=== PATIENT | female | born 1985 | race African-American/Black ===

== ENCOUNTER 2021-02-23 19:24 | Emergency (ER) | payer OTHER, SELFPAY ==
[2021-02-23 20:11] VITALS: BP 119/76; PULSE 68; RESP 18; TEMP 36.9; O2SAT 100
--- NOTE | 2021-02-23 20:59 | ED_ITS ---
HPI - Extremity Problem General Chief complaint: Extremity Problem,Nontraumatic Stated complaint: right leg numbness x few weeks Time Seen by Provider: 02/23/21 20:42 Source: patient Mode of arrival: ambulatory Limitations: no limitations History of Present Illness HPI Narrative: Patient is a 36-year-old female complaining of right leg numbness, lateral side, started 2 weeks ago. Patient denies any leg pain. Pat ient denies any cold extremity. Patient denies any injury to the area. Patient able to ambulate without difficulty. Patient also wants a test. Patient denies any back pain, incontinence, fever or chills. Patient denies any speech or visual disturbance, focal weakness or unsteady gait. Related Data Allergies Allergy/AdvReac Type Severity Reaction Status Date / Time No Known Allergies Allergy Unverified 10/10/17 14:13 Review of Systems Review of Systems: All systems reviewed & are unremarkable except as noted in HPI and below Constitutional: Constitutional: Reports as per HPI PMFSH Comments Past medical history: None Family history: None Social history: Non-smoker no EtOH or drug use. Exam Const: General: no acute distress and alert Orientation/consciousness: p atient oriented x3 HENMT: Head: normal to inspection Eyes: Conjunctivae: conjunctivae normal Neck: Neck: normal visual inspection Resp: Effort & Inspection: normal respiratory effort Back/Spine/Pelvis: Back: no CVA tenderness Other: Negative for vertebral tenderness or pain on palpation of the back Skin: General skin exam: normal color Rashes: no rashes Neuro: General: patient oriented x3, moves all extremities, no meningeal signs, no focal motor deficits and CN's II-XI intact bilaterally Speech: normal speech Gait exam (Neuro): Normal gait present Extrem: General: normal to inspection, no clubbing, cyanosis or edema and no pedal edema Other: No deformity, swelling or redness. Full range of motion. Negative for calf pain or swelling. Neurovascular is intact. Course Vital Signs Vital signs: Vital Signs Temperature 36.9 C 02/23/21 20:11 Pulse Rate 68 02/23/21 20:11 Respiratory Rate 18 02/23/21 20:11 Blood Pressure 119/76 02/23/21 20:11 Pulse Oximetry 100 02/23/21 20:11 Temperature 36.9 C 02/23/21 20:11 Pulse Rate 68 02/23/21 20:11 Respiratory Rate 18 02/23/21 20:11 Blood Pressure 119/76 02/23/21 20:11 Pulse Oximetry 100 02/23/21 20:11 Discharge Plan Discharge Clinical Impression: Paresthesia of right leg Patient Disposition: Home, Self-Care Condition: Stable Instructions: Paresthesia (ED) Follow-up/Referrals: PHYSICIAN,CATCH BASIN CLEANER [Primary Care Provider] - Keshav Rosario MD [Physician] - 02/24/21
--- NOTE | 2021-02-23 22:28 | PC.NURSE ---
patient requested discharge instruction informed waiting for md to print forms states That's OK walked out without instructions
== END 2021-02-23 22:30 | disposition home or self-care (01) ==
PROVIDERS: Emergency Provider Emergency Medicine
DX: R20.2 Paresthesia of skin (principal)
CPT/HCPCS: 81025; 99283

== ENCOUNTER 2022-03-25 17:19 | Emergency (ER) | payer OTHER, SELFPAY ==
[2022-03-25 17:22] VITALS: BP 95/74; PULSE 80; RESP 18; TEMP 36.3; O2SAT 100
--- NOTE | 2022-03-25 17:38 | ED.DENTAL ---
HPI - Dental/Oral General Chief complaint: Dental/Oral Stated complaint: dental pain left sided Time Seen by Provider: 03/25/22 17:28 History of Present Illness HPI Narrative: Patient is a 37-year-old female here for evaluation of left upper dental pain over the past 4 days. Patient has a cracked tooth in that area. She has a dentist but was told she needs to see a maxillofacial surgeon to have her wisdom teeth removed, but patient states that she has been unable to get in to see them due to insurance issues. She has attempted aspirin, ibuprofen, Tylenol without relief of her symptoms. She denies any facial swelling, trismus or fevers. Related Data Allergies Allergy/AdvReac Type Severity Reaction Status Date / Time No Known Allergies Allergy Unverified 03/25/22 17:20 Review of Systems Review of Systems: Gen.: Denies fevers or chills Eyes: Denies eye pain or visual change ENT: Reports dental pain Respiratory: Denies shortness of breath or cough CV: Denies chest pain or palpitations GI: Denies abdominal pain nausea, emesis or diarrhea denies burning, urgency, frequency or hematuria Musculoskeletal: Denies back pain or muscle pain Neuro: Denies numbness, tingling, weakness or focal weakness Skin: Denies rash Except as documented, all other systems reviewed and negative Exam Narrative: Gen: Alert, oriented, no acute distress Eyes: EOMI, no icterus ENT: No facial swelling noted. No trismus. Patient has a cracked tooth on the upper left side that is tender to palpation. No palpable periapical abscess. Pulm: Respirations even and unlabored, symmetric thorax expansion, no audible stridor or visible cyanosis CV: Regular rate per telemetry GI: No distension, no voluntary/involuntary guarding Neuro: AOx4, moves all extremities without apparent difficulty or weakness, follows commands Skin: No jaundice, no visible bruising, rashes, lesions or wounds on exposed skin Psych: Normal mood/affect, insight/judgement good, adequate fund of knowledge, recent/remote memory intact Course Vital Signs Vital signs: Vital Signs Temperature 97.4 F L 03/25/22 17:22 Pulse Rate 80 03/25/22 17:22 Respiratory Rate 18 03/25/22 17:22 Blood Pressure 95/74 L 03/25/22 17:22 Pulse Oximetry 100 03/25/22 17:22 Oxygen Delivery Room Air 03/25/22 17:22 Temperature 97.4 F L 03/25/22 17:22 Pulse Rate 80 03/25/22 17:22 Respiratory Rate 18 03/25/22 17:22 Blood Pressure 95/74 L 03/25/22 17:22 Pulse Oximetry 100 03/25/22 17:22 Oxygen Delivery Room Air 03/25/22 17:22 MDM - Dental/Oral MDM Narrative Medical decision making narrative: Patient presents for dental pain due to suspected dental luz. Patient not immunosuppressed, afebrile and well appearing with patent airway, have low suspicion for deep space infection or any concern for airway compromise. Based on history, physical, and work up. No evidence of tooth fracture, avulsion, or bleeding socket. No evidence of RPA, ELIGIBILITY EXAMINER, Ran?s angina, periapical abscess. Instructed patient to continue to treat pain with ibuprofen/acetaminophen until they see a dentist. Will start on antibiotics. Patient discharged home and will follow up with dentist. Discussed return precautions for odontogenic infections and other dental pain emergencies. Discharge Plan Discharge Clinical Impression: Dental caries Patient Disposition: Home, Self-Care Condition: Stable Instructions: Antibiotic Form, Toothache (ED) Additional Instructions: You will need to see an oral surgeon for further evaluation of your dental pain. In the meantime, take the antibiotics as directed. You may use the extra strength ibuprofen and Orajel as needed for pain. Return to the ED if you cannot swallow, open your jaw or have other concerning symptoms. Prescriptions: New Orajel 3X Mouth Sores 20-0.1-0.15 % gel 1 ea mucous membrane Q6-12H PRN (Reason: toothache) Qty: 5.1 0RF ibuprofen 600 mg tabl
== END 2022-03-25 18:02 | disposition home or self-care (01) ==
LOC: ANHED 17:45
PROVIDERS: Emergency Provider Physician Assistant
DX: K02.9 Dental caries, unspecified (principal)
CPT/HCPCS: 99283

== ENCOUNTER 2022-11-14 22:59 | Emergency (ER) | payer OTHER, SELFPAY ==
--- NOTE | ~2022-11-14 | US_ITS ---
EXAMINATION: US OB <=14 wk fetus w TV DATE: 11/15/2022 01:24 INDICATION: Low abdominal pain. Bleeding. TECHNIQUE: Multiple transabdominal sonographic images of the pelvis were obtained. COMPARISON: None. FINDINGS: The uterus measures 9.3 x 4.9 x 5.1 cm. There is no free fluid in the pelvis. The endometrial complex measures 13 mm in thickness. There is a cystic mass with mean diameter of 1.2 cm and internal echoes in the vagina that was expelled during the exam. The right ovary measures 3.7 x 1.3 x 1.5 cm. The le ft ovary measures 2.8 x 2.6 x 2.8 cm. There is normal vascular flow in the ovaries. IMPRESSION: 1. Cystic mass in the vagina that was expelled during the exam, which is indeterminate for a gestatio nal sac. Correlate with exam for expelled parts. Lack of a visible normal intrauterine gestatio nal sac may be seen with early , ectopic , and spontaneous . Correlate with serial beta-hCGs if the exam is negative for expelled parts. Reviewed, dictated and finalized at location E. IMPRESSION: 1. Cystic mass in the vagina that was expelled during the exam, which is indete rminate for a gestational sac. Correlate with exam for expelled parts. La ck of a visible normal intrauterine gestational sac may be seen with early preg luh, ectopic , and spontaneous . Correlate with serial beta- hCGs if the exam is negative for expelled parts.
[2022-11-14 23:07] VITALS: BP 121/76; PULSE 71; RESP 17; TEMP 36.4; O2SAT 100
[2022-11-15 00:11] LABS: Basophils Absolute Auto 0.1 K/mm3 (0.0-0.1); Basophils Percent Auto 0.6 % (0.2-1.2); Eosinophils Absolute Auto 0.2 K/mm3 (0-0.3); Eosinophils Percent Auto 1.9 % (0-4.4); Hematocrit 35.9 % (37.0-47.0); Hemoglobin 10.7 g/dL (12.0-15.0); Immature Granulocyte Absolute 0.02 K/mm3 (0.00-0.031); Immature Granulocyte Percent A 0.2 % (0-0.5); Lymphocytes Absolute Auto 3.25 K/mm3 (0.9-3.2); Mean Corpuscular HGB Conc 29.8 g/dl (32-36); Mean Corpuscular Hemoglobin 23.5 pg (26-34); Mean Corpuscular Volume 78.7 fl (80-100); Mean Platelet Volume 9.8 fl (7.4-10.4); Monocytes Absolute Auto 0.7 K/mm3 (0.1-0.6); Monocytes Percent Auto 7.7 % (2.6-8.5); Neutrophils Absolute Auto 4.9 K/mm3 (1.3-6.7); Neutrophils Percent Auto 53.6 % (45.5-73.1); Platelet Count Result 340 k/mm3 (150-375); Red Blood Count 4.56 M/mm3 (4.2-5.4)
--- NOTE | 2022-11-15 00:13 | ED.ABDPAIN ---
HPI - Abdominal Pain General Chief Complaint: Abdominal Pain Stated Complaint: abd pain, vaginal bleeding Time Seen by Provider: 11/15/22 00:11 Source: patient Mode of arrival: ambulatory Limitations: no limitations History of Present Illness HPI narrative: Patient is a 37 y/o female who presents to the ED with c/o vaginal bleeding. Patient reports she developed vaginal bleeding today. It began as spotting, but has since become heavier with clots. She states her last normal menstrual cycle was 09/29/2022. She did not think she was . Bedside urine positive in the ED. This makes patient G5, P2. She has had 1 miscarriage previously and had an elective at the beginning of this year. Patient also reports having lower abdominal cramping, slightly worse on the left side. She denies any nausea, vomiting, diarrhea, constipation, urinary complaints, fevers. Related Data Allergies Allergy/AdvReac Type Severity Reaction Status Date / Time No Known Allergies Allergy Unverified 03/25/22 17:20 Review of Systems Review of Systems: CONSTITUTIONAL: Denies fever, chills, or sweats. CARDIOVASCULAR: Denies chest pain. RESPIRATORY: Denies dyspnea. GASTROINTESTINAL: See HPI. GENITOURINARY: See HPI. SKIN: Denies rash or itching. MUSCULOSKELETAL: Denies back pain, joint pain, or myalgia. NEUROLOGIC: Denies headache, numbness, or weakness. All systems reviewed & are unremarkable except as noted in HPI and below Exam Narrative: GENERAL: Mildly uncomfortable appearing, thin, non-toxic, in no acute distress. HEAD: Normocephalic, atraumatic. NECK: Supple. No adenopathy, no masses. RESPIRATORY: Airway patent, respirations nonlabored. Clear to auscultation bilaterally, no rales, rhonchi, wheezing. CARDIOVASCULAR: Regular rate and rhythm without murmurs, rubs, or gallops. Peripheral pulses 2+ and equal bilaterally. ABDOMINAL: Soft, diffuse lower abdominal tenderness, worst in suprapubic region/LLQ, nondistended, no hepatosplenomegaly. Normoactive BS. PELVIC: Normal external genitalia. No abnormal discharge. Several large clots seen in vaginal vault. tissue coming from cervical os which appears open. Removal of tissue performed with ring forceps. No evidence for hemorrhage or pooling of fluid after removal. Mild CMT. MUSCULOSKELETAL: Moves all extremities. Strength/ROM intact without gross deformities. SKIN: Warm, dry, normal color. No rashes. NEURO: A&O X3. Speech clear. Cranial nerves II-XII grossly intact. Steady gait. No ataxic movements. PSYCHIATRIC: Appropriate mood and affect. Normal interaction. Course Vital Signs Vital signs: Vital Signs Temperature 97.5 F L 11/14/22 23:07 Pulse Rate 71 11/14/22 23:07 Respiratory Rate 17 11/14/22 23:07 Blood Pressure 121/76 11/14/22 23:07 Pulse Oximetry 100 11/14/22 23:07 Oxygen Delivery Room Air 11/14/22 23:07 Temperature 97.8 F 11/15/22 01:07 Pulse Rate 77 11/15/22 02:25 Respiratory Rate 15 11/15/22 02:25 Blood Pressure 117/94 H 11/15/22 02:25 Pulse Oximetry 98 11/15/22 02:25 Oxygen Delivery Room Air 11/14/22 23:07 MDM - Abdominal Pain MDM Narrative Medical decision making narrative: Patient presented to ED with vaginal bleeding, over 1 month late on menstrual cycle. Lower abdominal cramping. Bedside urine test positive in the ED. Patient G5, P2. Beta quant around 3500. CBC without leukocytosis. Hemoglobin 10.7. No records to compare to. Ultrasound concerning for miscarriage with cystic mass expelled during exam. No intrauterine gestational sac seen. Pelvic exam revealed large clots and a small dime size sac which were removed with ring forceps. Placed in specimen cup and sent for pathology. No evidence for hemorrhage on pelvic exam after removal of material. Discussed case with Dr. Up, CLOTH SHRINKING MACHINE OPERATOR HELPER on-call, will follow-up with patient. Repeat beta quant level on Wednesday. Patient
[2022-11-15 00:18] LABS: Appearance Urine Clear (Clear); Bacteria Urine None Seen /hpf; Bilirubin Urine Negative (Negative); Blood Urine 3+ (Negative); Color Urine Yellow (Yellow); Glucose Urine UA Negative (Negative); Ketones Urine Trace mg/dL (Negative); Leukocyte Esterase Ur Negative LEU/UL (Negative); Nitrate Urine Negative (Negative); Non Pathogenic Casts 0-2; Protein Urine Negative (Negative); RBC Urine >100 /hpf (0-2); Specific Grav Ur 1.026 (1.001-1.035); Squamous Epithelial Cell Urine None seen /hpf (Few); WBC Urine 0-5 /hpf
[2022-11-15 00:23] LABS: Alanine Aminotransferase 16 U/L (6-35); Albumin Level 4.4 g/dL (3.5-5.1); Alkaline Phosphatase 54 U/L (38-126); Anion Gap 9 mmol/L (8-16); Aspartate Amino Transferase 21 U/L (14-36); Bilirubin,Total 0.7 mg/dL (0.2-1.3); Blood Urea Nitrogen 14 mg/dL (7-17); Calcium 8.7 mg/dL (8.4-10.2); Carbon Dioxide 25 mmol/L (22-30); Chloride 101 mmol/L (98-107); Estimated CRCL calculation 96 ml/min; Estimated Glomerular Filt Rate > 60; Glucose 99 mg/dL (65-110); Lipase 86 U/L (23-300); Potassium 3.6 mmol/L (3.4-5.0); Sodium 135 mmol/L (137-145)
[2022-11-15 00:53] LABS: Add Urine Microscopic? YES
[2022-11-15 01:07] VITALS: BP 114/77; PULSE 88; RESP 15; TEMP 36.6; O2SAT 98
[2022-11-15] MEDS: ACETAMINOPHEN 500 MG TABLET 1000 MG PO (01:32)
[2022-11-15 02:25] VITALS: BP 117/94; PULSE 77; RESP 15; O2SAT 98
[2022-11-15] MEDS: ONDANSETRON INJ 4 MG/2 ML VIAL IV PUSH (03:31)
[2022-11-15] MEDS: MORPHINE SULFATE (*CRX) 4 MG/ML INJ IV PUSH (03:31)
[2022-11-15 04:47] VITALS: BP 117/82; PULSE 67; RESP 13; TEMP 36.7; O2SAT 99
== END 2022-11-15 04:48 | disposition home or self-care (01) ==
PROVIDERS: Emergency Medicine; Emergency Provider Physician Assistant
DX: O03.9 Complete or unspecified spontaneous abortion without complication (principal)
CPT/HCPCS: 36415; 76801; 76817; 80053; 81001; 81025; 83690; 84702; 85025; 85461; 86850; 86900; 86901; 96374; 96375; 99284; A9270; J2270; J2405

== ENCOUNTER 2023-04-14 14:40 | Outpatient (CLI) | payer OTHER, SELFPAY ==
[2023-04-14 15:00] LABS: Hematocrit 37.8 % (37.0-47.0); Hemoglobin 11.2 g/dL (12.0-15.0); Mean Corpuscular HGB Conc 29.6 g/dl (32-36); Mean Corpuscular Hemoglobin 22.9 pg (26-34); Mean Corpuscular Volume 77.3 fl (80-100); Mean Platelet Volume 9.7 fl (7.4-10.4); Platelet Count Result 344 k/mm3 (150-375); Red Blood Count 4.89 M/mm3 (4.2-5.4); Red Cell Distribution Width 12.9 % (11.5-14.5); White Blood Count 5.9 K/mm3 (4.5-10.0)
[2023-04-14 15:11] LABS: Alanine Aminotransferase 13 U/L (6-35); Albumin Level 4.3 g/dL (3.5-5.1); Alkaline Phosphatase 52 U/L (38-126); Anion Gap 9 mmol/L (8-16); Aspartate Amino Transferase 24 U/L (14-36); Bilirubin,Total 1.4 mg/dL (0.2-1.3); Blood Urea Nitrogen 9 mg/dL (7-17); Calcium 9.2 mg/dL (8.4-10.2); Carbon Dioxide 26 mmol/L (22-30); Chloride 104 mmol/L (98-107); Cholesterol 145 mg/dL (0-200); Estimated Glomerular Filt Rate > 60; Glucose 91 mg/dL (65-110); HDL Direct 50 mg/dL; Potassium 3.9 mmol/L (3.4-5.0); Sodium 139 mmol/L (137-145); Triglycerides 46 mg/dL (<150)
[2023-04-14 15:22] LABS: LDL Cholesterol Direct 75 mg/dL
[2023-04-14 15:52] LABS: HIV 1/2 Ab P24 Ag Result Negative (Negative)
[2023-04-14 17:05] LABS: Hepatitis B Surface Antigen Negative (Negative)
[2023-04-14 17:22] LABS: Hepatitis C Virus Antibody Negative (Negative)
[2023-04-14 21:48] LABS: Vitamin D 25 Hydroxy < 12.8 ng/mL
[2023-04-14 21:51] LABS: Iron 105 ug/dL (37-170)
[2023-04-14 21:52] LABS: Percent Iron Saturation 35 % (20-50)
[2023-04-14 22:26] LABS: Hepatitis B Surface Antigen 0.04 S/C; Hepatitis C Virus Antibody 0.05 S/C
[2023-04-14 22:29] LABS: HIV 1/2 Ab P24 Ag 0.17
[2023-04-15 10:36] LABS: Rapid Plasma Reagin Non-Reactive (NonReactive)
== END 2023-04-14 14:41 | disposition home or self-care (01) ==
LOC: ANHLAB 14:43
PROVIDERS: PCP Family Medicine; Referring Provider Obstetrics & Gynecology; Visit Provider Family Medicine
DX: Z00.00 Encounter for general adult medical examination without abnormal findings (principal); R51.9 Headache, unspecified; Z20.2 Contact with and (suspected) exposure to infections with a predominantly sexual mode of transmission
CPT/HCPCS: 36415; 80053; 80061; 82306; 82607; 83540; 83550; 85027; 86592; 86703; 86803; 87340; G0432

== ENCOUNTER 2023-06-03 07:48 | Outpatient (CLI) | payer OTHER, SELFPAY ==
[2023-06-03 08:49] LABS: Hematocrit 37.3 % (37.0-47.0); Mean Corpuscular HGB Conc 29.5 g/dl (32-36); Mean Corpuscular Hemoglobin 23.3 pg (26-34); Mean Corpuscular Volume 78.9 fl (80-100); Mean Platelet Volume 10.5 fl (7.4-10.4); Platelet Count Result 348 k/mm3 (150-375); Red Blood Count 4.73 M/mm3 (4.2-5.4); Red Cell Distribution Width 12.9 % (11.5-14.5); White Blood Count 5.7 K/mm3 (4.5-10.0)
[2023-06-03 09:30] LABS: Thyroid Stimulating Hormone 0.952 uIU/mL (0.465-4.680)
[2023-06-03 20:25] LABS: Iron 71 ug/dL (37-170)
[2023-06-03 20:36] LABS: Percent Iron Saturation 26 % (20-50)
== END 2023-06-03 07:49 | disposition home or self-care (01) ==
LOC: ANHLAB 07:49
PROVIDERS: PCP Family Medicine; Visit Provider Family Medicine
DX: D64.9 Anemia, unspecified (principal); R68.89 Other general symptoms and signs
CPT/HCPCS: 36415; 83540; 83550; 84443; 85027

== ENCOUNTER 2023-06-09 08:12 | Outpatient (CLI) | payer OTHER, SELFPAY ==
[2023-06-09 10:26] LABS: Hemoglobin A1C 4.7 % (<5.7)
== END 2023-06-09 08:13 | disposition home or self-care (01) ==
LOC: ANHLAB 08:14
PROVIDERS: PCP Nurse Practitioner Family; Visit Provider Nurse Practitioner Family
DX: R53.83 Other fatigue (principal); R63.2 Polyphagia; R68.89 Other general symptoms and signs; Z32.01 Encounter for pregnancy test, result positive; D64.9 Anemia, unspecified; R35.89 Other polyuria
CPT/HCPCS: 36415; 82728; 83036; 84702

== ENCOUNTER 2023-09-09 11:31 | Outpatient (CLI) | payer OTHER, SELFPAY ==
[2023-09-09 12:20] LABS: Beta HCG Quantitative < 2.39 mIU/ML
[2023-09-09 12:42] LABS: HIV 1/2 Ab P24 Ag Result Negative (Negative)
[2023-09-09 13:11] LABS: Hepatitis B Surface Antigen Negative (Negative)
[2023-09-09 13:29] LABS: Hepatitis C Virus Antibody Negative (Negative)
[2023-09-10 11:18] LABS: Rapid Plasma Reagin Non-Reactive (NonReactive)
== END 2023-09-09 11:32 | disposition home or self-care (01) ==
LOC: ANHLAB 11:32
PROVIDERS: PCP Nurse Practitioner Family; Visit Provider Obstetrics & Gynecology
DX: Z20.2 Contact with and (suspected) exposure to infections with a predominantly sexual mode of transmission (principal); N93.9 Abnormal uterine and vaginal bleeding, unspecified
CPT/HCPCS: 36415; 84702; 86592; 86703; 86803; 87340; G0432

== ENCOUNTER 2023-11-12 10:30 | Outpatient (CLI) | payer OTHER, SELFPAY ==
[2023-11-12 11:09] LABS: Basophils Percent Auto 0.5 % (0.2-1.2); Eosinophils Absolute Auto 0.1 K/mm3 (0-0.3); Eosinophils Percent Auto 2.1 % (0-4.4); Hematocrit 38.2 % (37.0-47.0); Hemoglobin 11.5 g/dL (12.0-15.0); Immature Granulocyte Absolute 0.02 K/mm3 (0.00-0.031); Immature Granulocyte Percent A 0.3 % (0-0.5); Lymphocytes Absolute Auto 1.95 K/mm3 (0.9-3.2); Lymphocytes Percent Auto 29.7 % (18.3-44.2); Mean Corpuscular HGB Conc 30.1 g/dl (32-36); Mean Corpuscular Hemoglobin 23.7 pg (26-34); Mean Corpuscular Volume 78.8 fl (80-100); Mean Platelet Volume 10.2 fl (7.4-10.4); Monocytes Absolute Auto 0.7 K/mm3 (0.1-0.6); Monocytes Percent Auto 10.8 % (2.6-8.5); Neutrophils Absolute Auto 3.7 K/mm3 (1.3-6.7); Neutrophils Percent Auto 56.6 % (45.5-73.1); Platelet Count Result 337 k/mm3 (150-375); Red Blood Count 4.85 M/mm3 (4.2-5.4); Red Cell Distribution Width 13.4 % (11.5-14.5); White Blood Count 6.6 K/mm3 (4.5-10.0)
[2023-11-12 11:28] LABS: SPREG INTERNAL CONTROL Positive; Serum Qual hCG Positive
[2023-11-12 11:46] LABS: Vitamin D 25 Hydroxy 14.6 ng/mL
== END 2023-11-12 10:31 | disposition home or self-care (01) ==
LOC: ANHLAB 10:31
PROVIDERS: PCP Nurse Practitioner Family; Visit Provider Nurse Practitioner Family
DX: D64.9 Anemia, unspecified (principal); E55.9 Vitamin D deficiency, unspecified; Z32.01 Encounter for pregnancy test, result positive
CPT/HCPCS: 36415; 82306; 84703; 85025

== ENCOUNTER 2023-11-13 00:36 | Emergency (ER) | payer OTHER, SELFPAY ==
--- NOTE | ~2023-11-13 | US_ITS ---
EXAMINATION: US OB <=14 wk fetus w TV DATE: 11/13/2023 02:35 INDICATION: Vaginal bleeding and cramping during first trimester TECHNIQUE: Real-time pelvic ultrasound utilizing both a transvaginal and transabdominal probe was pe rformed. The interpreting radiologist was not present for the study. COMPARISON: None. FINDINGS: The uterus measures 9.1 x 5.4 x 6.6 cm. Endometrial complex measures 8 mm in thickness with 3 mm flu id collection at the fundus without evident internal yolk sac or pole. The right ovary measures 3.3 x 3.0 x 2.1 cm. There are a few anechoic cysts in the right ovary the la rgest measuring 1.8 cm in maximal diameter. The left ovary measures 2.4 x 2.3 x 1.6 cm. Vascular flow identified in both ovaries on color Doppler. No other adnexal masses identified. There is no free fl uid in the pelvis. IMPRESSION: 1. Minimal fluid within the endometrial canal without definitive gestational sac for which differenti al would include early, failed or ectopic . Reviewed, dictated and finalized at location A. IMPRESSION: 1. Minimal fluid within the endometrial canal without definitive gestational sa c for which differential would include early, failed or ectopic .
[2023-11-13 01:11] VITALS: BP 105/64; PULSE 76; RESP 15; TEMP 36.1; O2SAT 100
[2023-11-13 01:55] LABS: Basophils Percent Auto 0.4 % (0.2-1.2); Eosinophils Absolute Auto 0.2 K/mm3 (0-0.3); Eosinophils Percent Auto 2.8 % (0-4.4); Hemoglobin 10.6 g/dL (12.0-15.0); Immature Granulocyte Absolute 0.02 K/mm3 (0.00-0.031); Immature Granulocyte Percent A 0.3 % (0-0.5); Lymphocytes Absolute Auto 2.32 K/mm3 (0.9-3.2); Lymphocytes Percent Auto 32.9 % (18.3-44.2); Mean Corpuscular HGB Conc 30.3 g/dl (32-36); Mean Corpuscular Hemoglobin 23.6 pg (26-34); Mean Platelet Volume 9.8 fl (7.4-10.4); Monocytes Absolute Auto 0.8 K/mm3 (0.1-0.6); Monocytes Percent Auto 11.5 % (2.6-8.5); Neutrophils Absolute Auto 3.7 K/mm3 (1.3-6.7); Neutrophils Percent Auto 52.1 % (45.5-73.1); Platelet Count Result 302 k/mm3 (150-375); Red Blood Count 4.49 M/mm3 (4.2-5.4); Red Cell Distribution Width 13.2 % (11.5-14.5); White Blood Count 7.1 K/mm3 (4.5-10.0)
[2023-11-13 02:06] LABS: Alanine Aminotransferase 14 U/L (6-35); Albumin Level 3.8 g/dL (3.5-5.1); Alkaline Phosphatase 49 U/L (38-126); Anion Gap 8 mmol/L (4-12); Aspartate Amino Transferase 20 U/L (14-36); Bilirubin,Total 0.8 mg/dL (0.2-1.3); Blood Urea Nitrogen 12 mg/dL (7-17); Calcium 8.4 mg/dL (8.4-10.2); Carbon Dioxide 25 mmol/L (22-30); Chloride 102 mmol/L (98-107); Estimated CRCL calculation 107 ml/min; Estimated Glomerular Filt Rate > 60; Glucose 102 mg/dL (65-110); Potassium 3.7 mmol/L (3.4-5.0); Sodium 135 mmol/L (137-145)
[2023-11-13 02:22] LABS: Beta HCG Quantitative 641.86 mIU/ML
--- NOTE | 2023-11-13 02:31 | ED.FEMALEGU ---
HPI - Female Genitourinary General Chief complaint: Vaginal Bleeding Stated complaint: positive preg test , noticed bleeding Time Seen by Provider: 11/13/23 00:57 History of Present Illness HPI Narrative: patient had positive test and confirmatory blood test done yesterday and has been having some spotting when she wipes and cramping. Related Data Home Medications Medication Instructions Recorded Confirmed albuterol sulfate 90 mcg/actuation 1 puff inhalation Q4H PRN 03/30/23 11/05/23 aerosol inhaler escitalopram oxalate 10 mg tablet mg PO 11/05/23 11/05/23 Allergies Allergy/AdvReac Type Severity Reaction Status Date / Time No Known Allergies Allergy Verified 11/05/23 14:19 Review of Systems Review of Systems: All systems reviewed & are unremarkable except as noted in HPI and below PMFSH Past Medical History Medical History Anemia Asthma Pain in scapula Vaginitis Family History Family History Father No problems noted. Other Hypertension Social History Social History Smoking status: Never smoker Second hand tobacco smoke exposure: No Alcohol intake: current Alcohol use details: occasional Substance use: never Substance use type: does not use Do You Feel Safe in your Home?: Yes Lack of Transportation: No Lack of Food: Never True Current Housing: I Have Housing Concerned About Future Housing: No Difficulty Paying Gas/Electric Bills: No Difficulty Paying for Meds: No Currently Unemployed: No Education: High School Diploma/GED Difficulty w/ Childcare or Family Care: No Living arrangements: with family Occupation/Education: occupation Gender identity (if verbalized by the patient): Female Sexual Orientation (if Verbalized by the Patient): Straight or Heterosexual Spiritual care concerns: No Agree to blood products: Yes Exam Narrative: EXAMINATION OF ORGAN SYSTEMS/BODY AREAS: Constitutional: Vital signs per nursing GENERAL:[No acute distress, non-toxic appearing.] HEAD: Normal with no signs of head trauma. EYES: EOMI, conjunctiva normal ENT: Hearing grossly intact LUNGS: Nonlabored breathing. HEART: [Regular rate and rhythm] ABD: [Soft], [nontender to palpation] EXT: Normal range of motion SKIN: [No rashes or lesions.] NEURO: [Alert and oriented x 3. No gross focal sensory or strength deficits.] PSYCH: Normal affect Course Vital Signs Vital signs: Vital Signs Temperature 97 F L 11/13/23 01:11 Pulse Rate 76 11/13/23 01:11 Respiratory Rate 15 11/13/23 01:11 Blood Pressure 105/64 11/13/23 01:11 Pulse Oximetry 100 11/13/23 01:11 Oxygen Delivery Room Air 11/13/23 01:11 Temperature 97 F L 11/13/23 01:11 Pulse Rate 80 11/13/23 03:55 Respiratory Rate 15 11/13/23 03:55 Blood Pressure 110/64 11/13/23 03:55 Pulse Oximetry 100 11/13/23 03:55 Oxygen Delivery Room Air 11/13/23 01:11 MDM - Female Genitourinary MDM Narrative Medical decision making narrative: 38-year-old female presenting with positive test with spotting cramping. She is well-appearing here, however to rule out ectopic I will obtain an ultrasound. no definitive intrauterine seen on ultrasound, small amount fluid in endometrial canal, no adnexal mass or free fluid to suggest ectopic. Patient is quantitative hCG is low enough that I suspect patient is mostly likely just very early , she is overall very well appearing without any abdominal tenderness so I do feel comfortable discharging the patient, findings and plan discussed with the patient, patient agreeable to outpatient management also with follow-up to her OBGYN next few days for repeat HCG, I have given her strict return precautions to come back to the ER immed
[2023-11-13 03:55] VITALS: BP 110/64; PULSE 80; RESP 15; O2SAT 100
== END 2023-11-13 03:57 | disposition home or self-care (01) ==
PROVIDERS: Emergency Provider Emergency Medicine; PCP Nurse Practitioner Family
DX: O46.90 Antepartum hemorrhage, unspecified, unspecified trimester (principal); Z3A.00 Weeks of gestation of pregnancy not specified
CPT/HCPCS: 36415; 76801; 76817; 80053; 84702; 85025; 99284

== ENCOUNTER 2023-11-15 07:37 | Outpatient (CLI) | payer OTHER, SELFPAY | END 2023-11-15 07:38 | disposition home or self-care (01) | LOC: ANHLAB 07:38 | PROVIDERS: PCP Nurse Practitioner Family; Visit Provider Nurse Practitioner Family | DX: Z32.01 Encounter for pregnancy test, result positive (principal) | CPT/HCPCS: 36415; 84702 ==

== ENCOUNTER 2023-11-17 08:02 | Outpatient (CLI) | payer OTHER, SELFPAY | END 2023-11-17 08:03 | disposition home or self-care (01) | LOC: ANHLAB 08:02 | PROVIDERS: PCP Nurse Practitioner Family; Visit Provider Nurse Practitioner Family | DX: O20.9 Hemorrhage in early pregnancy, unspecified (principal); Z3A.00 Weeks of gestation of pregnancy not specified | CPT/HCPCS: 36415; 84144; 84702 ==

== ENCOUNTER 2023-11-19 11:13 | Outpatient (CLI) | payer OTHER, SELFPAY ==
--- NOTE | ~2023-11-19 | US_ITS ---
EXAMINATION: US OB <=14 wk fetus w TV DATE: 11/19/2023 12:05 INDICATION: Dimension early TECHNIQUE: Real-time pelvic ultrasound utilizing both a transvaginal and transabdominal probe was pe rformed. The interpreting radiologist was not present for the study. COMPARISON: None. FINDINGS: The uterus measures 8.8 x 5.0 x 5.4 cm. There is an intrauterine gestational sac with double decidua l sign. There is internal echogenicity within the gestational sac likely representing a yolk sac and pole which are too small to be clearly distinguished. The mean sac diameter measures 5 mm, whic h is too small for assessment for estimated gestational age. The right ovary measures 3.7 x 3.1 x 2.0 cm. There there are few small anechoic cysts/follicles in th e right ovary along with a 2.4 cm thick-walled centrally anechoic likely corpus luteum cyst with typi kisha peripheral increased vascular flow on color Doppler. The left ovary measures 3.3 x 2.4 x 1.4 cm. Additional 1.1 cm cyst/follicle in the left ovary with vascular flow also identified in the left ovar y on color Doppler. There is no free fluid in the pelvis. IMPRESSION: 1. Single intrauterine gestational sac with likely internal yolk sac and/or pole of indetermina te viability which are difficult to distinguish due to the small size and with the 5 mm mean sac diam eter too small to determine definitive estimated gestational age. Recommend continued follow-up with serial beta CT levels and could consider repeat ultrasound in several days to assess for viabil ity and estimated gestational age as clinically indicated. Reviewed, dictated and finalized at location B. IMPRESSION: 1. Single intrauterine gestational sac with likely internal yolk sac and/or fet al pole of indeterminate viability which are difficult to distinguish due to th e small size and with the 5 mm mean sac diameter too small to determine definit cielo estimated gestational age. Recommend continued follow-up with serial beta C T levels and could consider repeat ultrasound in several days to assess for fet al viability and estimated gestational age as clinically indicated.
[2023-11-19 13:00] LABS: Beta HCG Quantitative 940.62 mIU/ML
== END 2023-11-19 11:14 | disposition home or self-care (01) ==
LOC: ANHIMG 11:13
PROVIDERS: PCP Nurse Practitioner Family; Visit Provider Nurse Practitioner Family
DX: O20.9 Hemorrhage in early pregnancy, unspecified (principal); O36.80X0 Pregnancy with inconclusive fetal viability, not applicable or unspecified; Z3A.00 Weeks of gestation of pregnancy not specified
CPT/HCPCS: 36415; 76801; 76817; 84702

== ENCOUNTER 2023-11-22 11:17 | Outpatient (CLI) | payer OTHER, SELFPAY ==
[2023-11-22 12:08] LABS: Beta HCG Quantitative 662.28 mIU/ML
== END 2023-11-22 11:18 | disposition home or self-care (01) ==
LOC: ANHLAB 11:18
PROVIDERS: PCP Nurse Practitioner Family; Visit Provider Nurse Practitioner Family
DX: O20.9 Hemorrhage in early pregnancy, unspecified (principal); Z3A.00 Weeks of gestation of pregnancy not specified
CPT/HCPCS: 36415; 84702

== ENCOUNTER 2023-11-24 14:29 | Outpatient (CLI) | payer OTHER, SELFPAY ==
--- NOTE | ~2023-11-24 | US_ITS ---
EXAMINATION: US OB <=14 wk fetus w TV DATE: 11/24/2023 15:38 INDICATION: Amenorrhea TECHNIQUE: Real-time pelvic ultrasound utilizing both a transvaginal and transabdominal probe was pe rformed. The interpreting radiologist was not present for the study. COMPARISON: None. FINDINGS: The uterus measures 8.4 x 5.2 x 5.2 cm. There is a 2 mm echogenic focus with small gestational sac w ithin the endometrial complex at the fundus of the uterus consistent with a gestational sac with inte rnal yolk sac and/or pole.The mean sac diameter measures 6 mm, which correlates with an estimat ed gestational age of 5 weeks and 2 days. The right ovary measures 3.7 x 2.2 x 1.9 cm. The left ovary measures 4.7 x 3.5 x 3.3 cm. There are bi lateral anechoic ovarian cysts which measures 2.9 cm in maximal diameter on the left and 2.0 cm on th e right. There is a minimal amount of anechoic free fluid in the cul-de-sac. IMPRESSION: 1. Single intrauterine gestational sac with 2 mm central echogenic focus which could represent the yo lk sac and/or pole. 2. Gestational age by ultrasound of 5 weeks 2 day(s) +/- 3 day(s) with ultrasound estimated date of delivery (BOBBI) of 07/24/2024. Reviewed, dictated and finalized at location A. IMPRESSION: 1. Single intrauterine gestational sac with 2 mm central echogenic focus which could represent the yolk sac and/or pole. 2. Gestational age by ultrasound of 5 weeks 2 day(s) +/- 3 day(s) with ultraso und estimated date of delivery (BOBBI) of 07/24/2024.
== END 2023-11-24 14:30 | disposition home or self-care (01) ==
LOC: ANHIMG 14:31
PROVIDERS: PCP Nurse Practitioner Family; Visit Provider Nurse Practitioner Family
DX: N91.2 Amenorrhea, unspecified (principal); Z3A.01 Less than 8 weeks gestation of pregnancy
CPT/HCPCS: 76801; 76817

== ENCOUNTER 2023-12-03 15:07 | Outpatient (CLI) | payer OTHER, SELFPAY ==
--- NOTE | ~2023-12-03 | US_ITS ---
EXAMINATION: US OB <=14 wk fetus w TV DATE: 12/03/2023 16:32 INDICATION: with inconclusive viability. TECHNIQUE: Real-time transabdominal and transvaginal pelvic ultrasound was performed. COMPARISON: Ultrasound 11/24/2023 FINDINGS: TRANSABDOMINAL ULTRASOUND: The uterus measures 9.1 x 4.6 x 5.0 cm. TRANSVAGINAL ULTRASOUND: There is a cyst in the endometrial complex with mean diameter of 6 mm with i nternal echoes. The right ovary measures 2.6 x 2.0 x 1.6 cm. The left ovary measures 3.6 x 3.3 x 3.0 cm. There is physiologic free fluid in the pelvis. IMPRESSION: 1. Cyst in the endometrial complex with mean diameter of 6 mm without change from 11/24/23, likely a gestational sac, consistent with failed . Reviewed, dictated and finalized at location A. IMPRESSION: 1. Cyst in the endometrial complex with mean diameter of 6 mm without change f rom 11/24/23, likely a gestational sac, consistent with failed .
== END 2023-12-03 15:08 | disposition home or self-care (01) ==
LOC: ANHIMG 15:08
PROVIDERS: PCP Nurse Practitioner Family; Visit Provider Nurse Practitioner Family
DX: O36.80X0 Pregnancy with inconclusive fetal viability, not applicable or unspecified (principal); Z3A.00 Weeks of gestation of pregnancy not specified
CPT/HCPCS: 76801; 76817

== ENCOUNTER 2023-12-07 08:52 | Outpatient (CLI) | payer OTHER, SELFPAY ==
[2023-12-07 09:43] LABS: Beta HCG Quantitative 55.95 mIU/ML
== END 2023-12-07 08:53 | disposition home or self-care (01) ==
LOC: ANHLAB 08:53
PROVIDERS: PCP Nurse Practitioner Family; Visit Provider Obstetrics & Gynecology
DX: O20.0 Threatened abortion (principal); Z3A.00 Weeks of gestation of pregnancy not specified
CPT/HCPCS: 36415; 84702

== ENCOUNTER 2023-12-08 01:34 | Day surgery (SDC) | payer OTHER, SELFPAY ==
[2023-12-07 09:57] VITALS: BMI 25.1
--- NOTE | 2023-12-07 10:03 | PC.NURSE ---
Report to the Outpatient Waiting Room, entrance under the green pavilion located off [facility], at time _0800_ on date _[id number]_. Planned Procedure Time: _1000_.? Time changes happen often and if your time is changed the preop area will call you the afternoon before. - You and your visitor will be asked to self-screen and do not enter if you have any COVID symptoms. Please call surgeon if you need to reschedule. - A mask is optional within the hospital at this time. Patients may have clear liquids (water, carbonated beverages, clear teas, apple juice) until 3 hours prior to surgery with a maximum of 20 ounces. - No food from midnight until time of surgery and no smoking Take only the following medications with a SIP of water on the morning of surgery: __None DO NOT STOP ANY OF YOUR OTHER PRESCRIPTION MEDICATIONS PRIOR TO SURGERY EXCEPT THE FOLLOWING Medications to discontinue per physician ___Vitamins Date to take last dose____Stop now. Please no make-up, nail welsh, hairspray, perfume, deodorant, or body powder the day of surgery.? No jewelry (including any body piercings) or valuables the day of surgery, leave them at home.? Please take a shower or bath the night before, or the morning of, surgery with an antibacterial soap.? Wear comfortable, loose fitting clothing.? - Jewelry must be removed prior to entering the operating room.? Rings and piercings that are not removed may be cut off. - The hospital will not accept responsibility for valuables.? - Please leave all valuables, including medications, at home the day of surgery. If you are going home after surgery, a licensed route sales delivery drivers supervisor must drive you home.? - NO public transportation without another adult if you receive anesthesia. - We recommend that an adult stay with you for 24 hours following discharge. - We also recommend that you do not drive, make important decision, drink alcoholic beverages, or take any drugs that were not prescribed by your health care provider for at least 24 hours after your discharge time. Follow any additional instructions given to you from your surgeon. Telephone instructions given to ___Betsy____and asked if any additional questions and then verbalized understanding. Patient advised to call surgeon office or pre surgery nurse liaison [phone] if any additional questions.
--- NOTE | 2023-12-08 08:20 | WPDHPUPDATE1 ---
History and Physical Update Update Date/Time: 12/08/23 08:20 History and Physical has been reviewed, including an updated exam of the patient. There are NO changes in the patient's condition. Risks, benefits, and alternatives have been discussed and questions answered. Patient agrees to proceed with procedure.
--- NOTE | 2023-12-08 08:24 | WPDANESEPPF ---
Anes - Initial Pre Proc Eval Procedure: Operation Date: 12/08/23 10:00 Proposed Procedures p Suction Dilation and Curettage - Efrem Hobbs MD Date/Time: 12/08/23 08:24 Surgeon: Efrem Hobbs MD Pre Op Diagnosis: Non viable gestation Patient Data Age: 38 Gender: F Height: 1.7 m Weight: 72.7 kg Allergies Allergy/AdvReac Type Severity Reaction Status Date / Time No Known Allergies Allergy Verified 12/07/23 09:56 Home Medications Medication Instructions Recorded Confirmed Type cholecalciferol (vitamin D3) 25 25 mcg PO DAILY #90 caps 11/12/23 12/07/23 Rx mcg (1,000 unit) capsule ferrous sulfate 325 mg (65 mg 325 mg PO DAILY #90 tabs 11/12/23 12/07/23 Rx iron) tablet albuterol sulfate 90 mcg/actuation 1 puff inhalation Q4H PRN 11/25/23 12/07/23 Rx aerosol inhaler shortness of breath or wheezing #8.5 grams sertraline 50 mg tablet (Zoloft) 50 mg PO DAILY #30 tabs 11/25/23 12/07/23 Rx Patient hx anesthesia problems: none Family hx anesthesia problems: none Results Review: All pre-operative results and documents have been reviewed as part of the pre-operative evaluation. [facility] Past Medical History Medical History Anemia Asthma Pain in scapula Vaginitis Family History Family History Father No problems noted. Other Hypertension Social History Social History Smoking status: Never smoker Second hand tobacco smoke exposure: No Alcohol intake: current Alcohol use details: occasional Substance use: never Substance use type: does not use Do You Feel Safe in your Home?: Yes Lack of Transportation: No Lack of Food: Never True Current Housing: I Have Housing Concerned About Future Housing: No Difficulty Paying Gas/Electric Bills: No Difficulty Paying for Meds: No Currently Unemployed: No Education: High School Diploma/GED Difficulty w/ Childcare or Family Care: No Living arrangements: with family Occupation/Education: occupation Gender identity (if verbalized by the patient): Female Sexual Orientation (if Verbalized by the Patient): Straight or Heterosexual Spiritual care concerns: No Agree to blood products: Yes Anes - Eval Final PreProcedure Day of Procedure 12/08/23 08:24 Patient weight: normal Heart: regular rate and rhythm Lungs: clear to auscultation Airway: Mallampati scale class II Neurological: alert and oriented Last oral intake: >/= 8 hours ASA classification: II Emergent: no Anesthetic plan: proceed Anesthesia type and monitoring: general GIVS and standard monitoring Results Review: All pre-operative results and documents have been reviewed as part of the pre-operative evaluation. Informed Consent: The patient's anesthetic plan and its attendant risks and benefits were discussed with the patient/family/POA. Questions were solicited and answers provided to the satisfaction of the patient/family/POA.
[2023-12-08 09:17] VITALS: BP 107/66; PULSE 71; TEMP 36.6; O2SAT 100; BMI 24.8
[2023-12-08] MEDS: ACETAMINOPHEN 500 MG TABLET 1000 MG PO (09:51)
[2023-12-08] MEDS: LACTATED RINGERS 1,000 ML 30 ML IV CONT (09:51)
[2023-12-08] MEDS: ceFAZolin 2 GM/D5W 50 ML 2 GM/50 ML BAG IVPB (10:12)
[2023-12-08] MEDS: LIDOCAINE HCL 1% LOCAL INJ 20 ML VIAL 10 ML INFILTRATE (10:27)
--- NOTE | 2023-12-08 10:30 | W.PM.PROC2 ---
Procedure Note - Detailed Date of Procedure 12/08/23 Pre-op Diagnosis Non viable gestation Post-op Diagnosis Same Procedure Performed Suction and sharp curettage Surgeon Efrem Hobbs MD Anesthesia MAC and Local Indications patient with first-trimester bleeding decreasing quant HCG levels she is having significant cramping and ultrasound showed small amount of tissue. offered curettage. Findings Small amount of tissue at the mid uterus with suction minimal tissue obtained with sharp curettage Description of Procedure after informed consent was obtained patient was taken to the operating room and adequate IV sedation was administered she was placed in high lithotomy position and prepped and draped in sterile fashion attention was turned to the vagina speculum inserted single-tooth tenaculum placed on anterior lip of the cervix cc of 1% lidocaine was injected at the cervical vaginal interface at the 2, 5, 8, and 10 position. The cervix was dilated to a 9 Sawant dilator. A size 8 suction curette was passed small amount of tissue obtained with the 1st passed additional pass no tissue obtained. A sharp curettage was performed there was good cry noted in all quadrants. The suction was passed again no tissue. The tooth tenaculum was removed hemostasis noticed speculum was removed patient tolerated procedure well. Estimated Blood Loss 5 Drains No Packing No Pathology Yes (products of conception) Complications No immediate complications Condition Stable Disposition Same day [facility] Billing Surgery - Charge Forward: Surgery Billing
[2023-12-08 10:34] VITALS: BP 96/65; PULSE 69; RESP 14; O2SAT 100
[2023-12-08 11:00] VITALS: BP 96/65; PULSE 77; RESP 20
[2023-12-08 11:30] VITALS: BP 103/72; PULSE 55; RESP 20
== END 2023-12-08 11:40 | disposition home or self-care (01) ==
PROVIDERS: PCP Nurse Practitioner Family; Visit Provider Obstetrics & Gynecology
PROC: (CPT 59820; principal; 2023-12-08 10:00)
DX: O02.1 Missed abortion (principal); J45.909 Unspecified asthma, uncomplicated; D64.9 Anemia, unspecified; Z79.51 Long term (current) use of inhaled steroids
CPT/HCPCS: 59820; 36415; 85461; 86850; 86900; 86901; 88305; A9270; J0690; J1100; J2003; J2210; J2250; J2405; J2704; J3010; J7120

== ENCOUNTER 2023-12-22 12:03 | Outpatient (CLI) | payer OTHER, SELFPAY ==
[2023-12-22 13:13] LABS: Thyroid Stimulating Hormone 0.785 uIU/mL (0.465-4.680)
[2023-12-24 20:23] LABS: Lupus dRVVT Screen 35 sec (< OR = 45); PTT-LA Screen 31 sec (< OR = 40)
== END 2023-12-22 12:04 | disposition home or self-care (01) ==
LOC: ANHLAB 12:05
PROVIDERS: PCP Nurse Practitioner Family; Visit Provider Obstetrics & Gynecology
DX: O03.9 Complete or unspecified spontaneous abortion without complication (principal); Z3A.00 Weeks of gestation of pregnancy not specified
CPT/HCPCS: 36415; 84443; 85613; 85730; 86038; 86039

== ENCOUNTER 2024-01-28 11:32 | Outpatient (CLI) | payer OTHER, SELFPAY ==
[2024-01-28 12:02] LABS: Alanine Aminotransferase 15 U/L (6-35); Albumin Level 4.3 g/dL (3.5-5.1); Alkaline Phosphatase 50 U/L (38-126); Anion Gap 8 mmol/L (4-12); Aspartate Amino Transferase 20 U/L (14-36); Bilirubin,Total 1.2 mg/dL (0.2-1.3); Blood Urea Nitrogen 10 mg/dL (7-17); Calcium 8.6 mg/dL (8.4-10.2); Carbon Dioxide 26 mmol/L (22-30); Chloride 103 mmol/L (98-107); Estimated Glomerular Filt Rate > 60; Glucose 97 mg/dL (65-110); Potassium 3.7 mmol/L (3.4-5.0); Sodium 137 mmol/L (137-145)
[2024-01-30 03:38] LABS: Anti Cardio Antibody IgM <2.0 MPL-U/mL; Anti Cardiolipin Antibody IgA <2.0 APL-U/mL; Anti Cardiolipin Antibody IgG <2.0 GPL-U/mL
== END 2024-01-28 11:33 | disposition home or self-care (01) ==
PROVIDERS: PCP Nurse Practitioner Family; Visit Provider Obstetrics & Gynecology
DX: G47.61 Periodic limb movement disorder (principal); Z87.59 Personal history of other complications of pregnancy, childbirth and the puerperium
CPT/HCPCS: 36415; 80053; 82728; 84443; 86147

== ENCOUNTER 2024-01-31 10:41 | Outpatient (CLI) | payer OTHER, SELFPAY ==
--- NOTE | ~2024-01-31 | MR_ITS ---
MRI of the brain Clinical History: Mild cognitive impairment Technique: Axial and sagittal T1-weighted images were acquired. These were followed by axial T2-weigh jessa, diffusion weighted, gradient, and FLAIR images. Following intravenous administration of 15 cc Mu ltiHance gadolinium, T1-weighted fat-sat imaging was performed in the axial and coronal planes. Findings: There is no abnormal signal in the brain parenchyma. No acute infarct, intracranial hemorrh age, or mass lesion. Ventricles and subarachnoid spaces are unremarkable. Orbits are unremarkable. Paranasal sinuses and m astoid air cells are essentially clear. Major intracranial flow voids appear intact. Sagittal midline structures are intact. No abnormal postcontrast enhancement identified. IMPRESSION: Normal exam. Reviewed, dictated and finalized at location M. UCT MARKETING MANAGER IMPRESSION: Normal exam.
== END 2024-01-31 10:42 | disposition home or self-care (01) ==
PROVIDERS: PCP Nurse Practitioner Family; Visit Provider Nurse Practitioner Family
DX: G31.84 Mild cognitive impairment of uncertain or unknown etiology (principal); F99 Mental disorder, not otherwise specified
CPT/HCPCS: 70553; A9577

== ENCOUNTER 2024-04-06 07:50 | Outpatient (CLI) | payer OTHER, SELFPAY ==
--- OUTSIDE RECORDS SUMMARY | 2024-03-22 19:27 | XMS_ITS | Referral Summary ---
Author Organization [facility] Address [address] [place] [address] Care Team Providers Care Restaurant Hostess Name Role Phone Unavailable Primary Care Provider Unavailabl e Source Comments [facility],non-owned Affiliates and Associated Physician Practices is amultiple site organization consisting of ambulatory clinics and hospital sitesin [place], [place], [place] and [place]. This disclosure is being madepursuant to the Care Everywhere program and may not contain all information available regarding this patient. Last updated 17.[facility] ClarityRay Medications * Be aware that medications may not be up to date on this document. Alwaysverify current medications with the patient. Medication Sig Dispensed Refills Start Date End Date Status ibuprofen (MOTRIN) 800 MG tablet Take 1 tablet by mouth every 8 hours as needed for Pain 21 tablet 12/19/2017 Active cyclobenzaprine (FLEXERIL) 10 MG tablet Take 1 tablet by mouth 3 times daily as needed for Muscle Spasms 12 tablet 12/19/2017 Active Active Problems Problem Noted Date Diagnosed Date Second 09/09/2018 Encounter for ultrasound 09/09/2018 Abnormal ultrasound 09/09/2018 Social History Tobacco Use Types Packs/Day Years Used Date Smoking Tobacco: Never Alcohol Use Standard Drinks/Week Comments Yes 0 (1 standard drink = 0.6 oz pur e alcohol) socially Sex and Gender Information Value Date Recorded Sex Assigned at Not on file Gender Identity Not on file Sexual Orientation Not on file Last Filed Vital Signs Vital Sign Reading Time Taken Comments Blood Pressure 139/100 12/19/2017 12:35 PM CDT Pulse 68 12/19/2017 12:35 PM CDT Temperature 36.6 ??C (97.8 ??F) 12/19/2017 12:35 PM C DT Respiratory Rate 18 12/19/2017 12:35 PM CDT Oxygen Saturation 100% 12/19/2017 12:35 PM CDT Inhaled Oxygen Concentration - - Weight 54.4 kg (120 lb) 12/19/2017 12:35 PM CDT Height 170.2 cm (5' 7 ) 12/19/2017 12:35 PM CDT Body Mass Index 18.79 12/19/2017 12:35 PM CDT Plan of Treatment Not on file [facility] Personal/Family Self [address] [place] [address]
--- OUTSIDE RECORDS SUMMARY | 2024-03-22 19:27 | XMS_ITS | Patient Health Summary ---
Author Organization [facility] Address [address] [place] [address] Care Team Providers Care Yard Engineer Name Role Phone Unavailable Primary Care Provider Unavailabl e Note from [facility],non-owned Affiliates and Associated Physician Practices is amultiple site organization consisting of ambulatory clinics and hospital sitesin [place], [place], [place] and [place]. This disclosure is being madepursuant to the Care Everywhere program and may not contain all information available regarding this patient. Last updated 17.[facility] Medications * Be aware that medications may not be up to date on this document. Alwaysverify current medications with the patient. * ibuprofen (MOTRIN) 800 MG tablet(Started 12/19/2017) Take 1 tablet by mouth every 8 hours as needed for Pain * cyclobenzaprine (FLEXERIL) 10 MG tablet(Started 12/19/2017) Take 1 tablet by mouth 3 times daily as needed for Muscle Spasms Active Problems Problem Noted Date Diagnosed Date [...] Mass Index 18.79 12/19/2017 12:35 PM CDT Procedures * SONOGRAM - COMPLETE(Performed 10/10/2018) Performed for Second (HCC), Encounter for ultrasound (HCC), Abnormal ultrasound * SONOGRAM - COMPLETE(Performed 09/12/2018) Performed for Second (HCC), Encounter for ultrasound (HCC), Abnormal ultrasound * CARDIAC EKG ORDER(Performed 01/10/2018) * TROPONIN I(Performed 12/19/2017) * TROPONIN I(Performed 12/19/2017) * D-DIMER(Performed 12/19/2017) * COMPREHENSIVE METABOLIC PANEL(Performed 12/19/2017) * CBC W AUTO DIFFERENTIAL(Performed 12/19/2017) * XR CHEST 2VW(Performed 12/19/2017) Performed for Right-sided chest wall pain * HCG URINE QUALITATIVE - POINT OF CARE(Performed 12/19/2017) * EKG 12-LEAD(Performed 12/19/2017) Results * SONOGRAM - COMPLETE (10/10/2018 10:49 AM CDT) Only the most recent of2 resultswithin the time period is included. Anatomical Region Laterality Modality Other 10/10/2018 10:4 9 AM CDT Narrative 10/10/2018 12:16 PM CDT ? - [facility] ?PHONE: ??FAX: ? Pat. Name: ?BETSY BERGERON. No: ?[id number] Study Date: ?? 10/10/2018 ??10:49am , Age: ? 1985, 33 Pregnancies: ?? 2, Para 1 Height: ? 67 in Weight: ? 144 lb LMP: ?Unknown GA by Base: ?? 33w5d ?? BOBBI: 11/23/2018 GA by US: ? 33w1d ?? BOBBI: 11/27/2018 GA Selected: ??33w5d ([facility]) BOBBI: ?11/23/2018 Referring MD: Nel Dietz MD Machine Milker: ??Edilma Robertson, ANDREW, RDCS CPT4: ? 19235 BMI: ?22.55 Hist/Ind: ? Complete Anatomy MEASUREMENTS & AGE ? GROWTH EVALUATION Measurement ??GA ? Range ? Srce %for GA Ratios ----- ---- ------- BPD ??8.3 cm 33w2d (37t9z-59j6s) Hadl BPD 30% FL/BPD 0.77 (0.71 - 0.87) HC ??31.4 cm 35w1d (57b0x-61p2t) Hadl HC ??54% FL/AC ??0.22 (0.20 - 0.24) AC ??29.2 cm 33w1d (17r4x-78r3i) Hadl AC ??37% HC/AC ??1.08 (0.95 - 1.13) FL ?? 6.3 cm 32w5d (51o1a-50b3c) Hadl FL ??15% CI ? 0.73 (0.70 - 0.86) HL ?? 5.7 cm 33w2d (70h8t-06s2h) Bogdan HL ??42% GA for sonogram 33w1d (31v0o-03t5v) ?? Weight Estimate: based on (BPD,HC,AC,FL) Hadlock ?Weight: 2151 gm (1837-2465gm) Had ? : 4lbs, 11oz ? Normal: 2316 gm (1737- 2894gm) Had ? Wt% ? 29% for 33w5d Heart Rate: 162 bpm Amniotic Fluid Index: 15.2cm (08.2-24.7) Q1: 4.0cm ??Q2: 3.1cm ??Q3: 4.9cm ??Q4: 3.2cm ?? EVAL, PLACENTA Presentation: cephalic Placenta: left lateral Heart Rate: 162 bpm Amniotic Fluid Volume: Normal Anatomy!Normal!Abnormal!Suboptimal!Prev. Seen!Comments Cranium ?! ?! ?! ?! ? x ?! Mdl (CSP/Thal! ?! ?! ?! ? x ?! Ventricles ?? ! ?! ?! ?! ? x ?! Choroid Plexu! ?! ?! ?! ? x ?! Cerebellum ?? ! ?! ?! ?! ? x ?! Cisterna M. ??! ?! ?! ?! ? x ?! Profile ?! ?! ?! ?! ? x ?! Nasal Bone ?? ! ?! ?! ?! ? x ?! Lip ?! ?! ?! ?! ? x ?! Spine ?! ?! ?! ?! ? x ?! Lungs ?! ?! ?! ?! ? x ?! 4 Chamber Hea! ?! ?! ?! ? x ?! LVOT ? ! ?! ?! ?! ? x ?! RVOT ? ! ?! ?! ?! ? x ?! 3 Vessel View! ?? x ??! ?! ?! ?! Cross-over ?? ! ?? x ??! ?! ?! ?! Ductal Arch ??! ?? x ??! ?! ?! ?! Aortic Arch ??! ?! ?! ?! ? x ?! Caval View ?? ! ?! ?! ?! ? x ?! Situs ?! ?! ?! ?! ? x ?! Diaphragm ?! ?! ?! ?! ? x ?! Stomach ?! ?? x ??! ?! ?! ? x ?! Bowel ?! ?! ?! ?! ? x ?! Kidneys ?! ?? x ??! ?! ?! ? x ?! Bladder ?! ?? x ??! ?! ?! ? x ?! 3 Vessel Cord! ?! ?! ?! ? x ?! Cord In! ?! ?! ?! ? x ?! Upper Extremi! ?? x ??! ?! ?! ?! Hands ?! ?? x ??! ?! ?! ?! Lower Extreme! ?? x ??! ?! ?! ?! Feet ? ! ?? x ??! ?! ?! ?! External Terri! ?! ?! ?! ? x ?! Placental Cor! ?! ?! ?! ? x ?! CLINICAL SUMMARY Study Number: 2 ?? A single fetus is seen in the cephalic presentation. ??The measurements today are consistent with what is expected. ??The BOBBI is based on a prior ultrasound. ??The amniotic fluid volume is Normal. ?? No obvious structural anomalies are seen. ?? IMPRESSION: Single, live, IUP at 33w5d. ?? growth: Normal ?? Amniotic fluid volume: Normal ?? RECOMMEND: Follow up ultrasound as clinically indicated. Thank you for allowing us the opportunity to care for your patient. ?? Rehan Laura MD <Electronic Signature> ??10/10/2018 12:17pm Tereso Madrid MD [facility] ORDERABLES * CARDIAC EKG ORDER (01/10/2018 8:14 AM CASEWORK MANAGER) Narrative 01/10/2018 8:14 AM CASEWORK MANAGER Ordered by an unspecified provider. Scanned Document CARDIAC SERVICES ORD ERABLES * TROPONIN I (12/19/2017 5:40 PM CDT) Only the most recent of2 resultswithin the time period is included. Troponin I <0.010 <0.032 ng/mL 12/19/2017 6:04 PM CDT [facility] Blood BLOOD SPECIMEN / Unknown Venipuncture / Unknown 12/19/2017 5:40 PM CDT 12/19/2017 5:44 PM CDT Elmer Moya MD LAB - CHEMISTRY ORDERABLES [address] [phone] * D-DIMER (12/19/2017 3:29 PM CDT) D-Dimer Quantitative <0.27 <=0.50 mcg/mL FEU 12/19/2017 4:30 PM CDT [facility] Comment: In the absence of clinical symptoms, a value less than or equal to 0.5 mcg/mL FEU significantly decreases the probability of PE/DVT (negative predictive value >95%). 1 mcg/mL FEU = 1 Fibrinogen Equivalent Unit (approximates 0.5 mcg/ml of D- Dimer). ?ISTH DIAGNOSTIC SCORING SYSTEM FOR DIC ?Score ?0 ? 1 ? 2 ?3 ?? Platelet Count(x10^3/uL) ?> 100 ?? < 100 ?? < 50 ?N/A PT Prolongation above ? upper limit of normal ?0-3 ? 3-6 ? > 6 ?N/A range (seconds) ? Fibrinogen (mg/dL) ?> 100 ?? < 100 ?N/A ?N/A D-Dimer (mcg/mL FEU) ? < 0.50 ?N/A ? 0.50-5.0 ??> 5 Calculate Cumulative Score: > or = 5 :compatible with overt DIC ? < 5 :suggestive for non-overt DIC N/A = Non applicable Reference: Br. J. Haematol. 145:24-33,2009. Blood BLOOD SPECIMEN / Unknown Venipuncture / Unknown 12/19/2017 3:29 PM CDT 12/19/2017 3:33 PM CDT Pedro Vaughn APRN-PRICING INTERN LAB - COAGULAT ION ORDERABLES [address] [phone] * (ABNORMAL) CBC W AUTO DIFFERENTIAL (12/19/2017 3:29 PM CDT) [facility] WBC 6.6 3.5 - 10.5 10? 3 /uL 12/19/2017 3:37 PM [facility] RBC 4.92 3.90 - 5.00 10? 6 /uL 12/19/2017 3:37 PM [facility] Hemoglobin 11.8(L) 12.0 - 15.5 g/dL 12/19/2017 3:37 PM [facility] Hematocrit 37.7 35.0 - 45.0 % 12/19/2017 3:37 PM [facility] MCV 76.6(L) 81.0 - 97.0 fL 12/19/2017 3:37 PM [facility] MCH 24.0(L) 28.0 - 34.0 pg 12/19/2017 3:37 PM [facility] MCHC 31.3(L) 32.0 - 36.0 g/dL 12/19/2017 3:37 PM [facility] Platelet Count 260 150 - 400 10? 3 /uL 12/19/2017 3:37 PM [facility] RDW-SD 39.2 36.0 - 50.0 fL 12/19/2017 3:37 PM [facility] RDW-CV 13.9 11.2 - 14.8 % 12/19/2017 3:37 PM [facility] MPV 10.0 9.3 - 12.8 fL 12/19/2017 3:37 PM [facility] Neutrophils % 58.1 35.0 - 70.0 % 12/19/2017 3:37 PM [facility] Lymphocytes % 29.9 19.7 - 55.1 % 12/19/2017 3:37 PM [facility] Monocytes % 10.3 3.0 - 15.0 % 12/19/2017 3:37 PM [facility] Eosinophils % 1.5 0.0 - 6.0 % 12/19/2017 3:37 PM [facility] Basophil % 0.2 0.0 - 1.5 % 12/19/2017 3:37 PM [facility] Neutrophils Absolute 3.8 1.6 - 7.0 10? 3 /uL 12/19/2017 3:37 PM [facility] Lymphocyte Absolute 2.0 0.8 - 2.9 10? 3 /uL 12/19/2017 3:37 PM T [facility] Monocytes Absolute 0.68(H) 0.14 - 0.66 10? 3 /uL 12/19/2017 3:37 PM T [facility] Eosinophils Absolute 0.10 0.00 - 0.22 10? 3 /uL 12/19/2017 3:37 PM T [facility] Basophils Absolute 0.01 0.00 - 0.06 10? 3 /uL 12/19/2017 3:37 PM [facility] Immature Granulocytes % 0.0 0.0 - 1.0 % 12/19/2017 3:37 PM [facility] Blood BLOOD SPECIMEN / Unknown Venipuncture / Unknown 12/19/2017 3:29 PM CDT 12/19/2017 3:32 PM CDT Pedro Vaughn DEDICATED TRUCK DRIVER-PRICING INTERN LAB - HEMATOLO GY ORDERABLES Performing Organization Address City/State/[facility] Co de Phone Number [address] [phone] * (ABNORMAL) COMPREHENSIVE METABOLIC PANEL (12/19/2017 3:29 PM CDT) BUN 9 7 - 26 mg/dL 12/19/2017 3:51 PM [facility] Creatinine 0.7 0.6 - 1.2 mg/dL 12/19/2017 3:51 PM [facility] Sodium 137 136 - 145 mmol/L 12/19/2017 3:51 PM [facility] Potassium 3.7 3.5 - 4.5 mmol/L 12/19/2017 3:51 PM [facility] Chloride 104 98 - 107 mmol/L 12/19/2017 3:51 PM [facility] CO2 25 22 - 29 mmol/L 12/19/2017 3:51 PM [facility] Glucose 93 70 - 115 mg/dL 12/19/2017 3:51 PM [facility] Calcium 9.0 8.4 - 10.2 mg/dL 12/19/2017 3:51 PM [facility] Protein Total 7.8 6.0 - 8.3 g/dL 12/19/2017 3:51 PM T [facility] Albumin 3.7 3.4 - 5.0 g/dL 12/19/2017 3:51 PM [facility] Bilirubin Total 2.5(H) 0.2 - 1.2 mg/dL 12/19/2017 3:51 PM T [facility] Alkaline Phosphatase 53 40 - 150 Units/L 12/19/2017 3:51 PM T [facility] ALT 7 0 - 55 Units/L 12/19/2017 3:51 PM [facility] AST 15 5 - 34 Units/L 12/19/2017 3:51 PM [facility] Anion Gap 12 8 - 18 12/19/2017 3:51 PM [facility] BUN/Creatinine Ratio 13 7 - 23 12/19/2017 3:51 PM [facility] Osmolality Calculated 282 270 - 300 mOsm/kg 12/19/2017 3:51 PM [facility] Albumin/Globulin Ratio 0.9(L) 1.1 - 2.3 12/19/2017 3:51 PM [facility] eGFR >60 >60 mL/min/1.7 3 m2 12/19/2017 3:51 PM [facility] Blood BLOOD SPECIMEN / Unknown Venipuncture / Unknown 12/19/2017 3:29 PM CDT 12/19/2017 3:32 PM CDT Pedro Vaughn DEDICATED TRUCK DRIVER-PRICING INTERN LAB - CHEMISTR Y ORDERABLES Performing Organization Address [facility]/State/[facility] Co de Phone Number [address] [phone] * XR CHEST 2VW (12/19/2017 2:57 PM CDT) Anatomical Region Laterality Modality Chest Radiographic Christina ging 12/19/2017 3:09 PM CDT Impressions 12/19/2017 3:20 PM CDT IMPRESSION: No acute pulmonary process. Dictated by Elicia Dodd MD (residential property consultant). I, Dr. RODRI BARAJAS MD have personally reviewed and interpreted this examination/study. This report was electronically signed by RODRI BARAJAS MD ??on 12/19/2017 3:20 PM . Narrative 12/19/2017 3:20 PM CDT EXAMINATION: XR CHEST 2VW HISTORY: right chest pain COMPARISON: ??No prior study is available for comparison at the time of this dictation. FINDINGS: There is no focal consolidation, pleural effusion, or pneumothorax. The cardiomediastinal silhouette is normal. Procedure Note Rodri Barajas MD - 12/19/2017 EXAMINATION: XR CHEST 2VW HISTORY: right chest pain COMPARISON: No prior study is available for comparison at the time of this dictation. FINDINGS: There is no focal consolidation, pleural effusion, or pneumothorax. The cardiomediastinal silhouette is normal. IMPRESSION: No acute pulmonary process. Dictated by Elicia Dodd MD (residential property consultant). I, Dr. RODRI BARAJAS MD have personally reviewed and interpreted this examination/study. This report was electronically signed by RODRI BARAJAS MD on 12/19/2017 3:20 PM . Pedro Vaughn APRN-[facility] ORDERABLES * HCG URINE QUALITATIVE - POINT OF CARE (12/19/2017 2:19 PM CDT) HCG Qual Urine Negative Negative [facility] P OCT TESTING QC Verified Yes Yes [facility] POCT TESTING Urine URINE / Unknown 12/19/2017 2 :19 PM CDT Pedro Vaughn APRN-PRICING INTERN LAB - POINT OF CARE ORDERABLES H POCT TESTING [address] [phone] * EKG 12-LEAD (12/19/2017 1:24 PM CDT) Ventricular Rate 59 BPM [facility] MUSE Atrial Rate 59 BPM [facility] MUSE P-R Interval 128 ms [facility] MUSE QRS Duration ms 64 ms [facility] MUSE Q-T Interval ms 400 ms [facility] MUSE QTC Calculation (Bezet) 396 ms [facility] MUSE Calculated P [place] 64 degrees H MUSE Calculated R [place] 47 degrees [facility] MUSE Calculated T [place] 47 degrees [facility] MUSE Interpretation EKG SINUS BRADYCARDIA OTHERWISE NORMAL ECG NO PREVIOUS ECGS AVAILABLE Confirmed by VILLAGOMEZ.JERRELL DURBIN ([id number]), fashion editor Albert Ramirez ([id number]) on 01/05/2018 11:34:13 AM [facility] MUSE 12/19/2017 1:24 PM CDT 01/05/2018 11:34 AM CASEWORK MANAGER Elmer Moya MD ECG ORDERABLES [facility]
--- OUTSIDE RECORDS SUMMARY | 2024-03-22 19:27 | XMS_ITS | Encounter Summary ---
Author Organization [facility] Address [address] [place] [address] Care Team Providers Care Spread Cutter Name Role Phone Unavailable Primary Care Provider Unavailabl e Reason for Visit * Evaluate & Treat (Routine) - Closed Specialty Diagnoses / Procedures Referred By Delicia t Referred To Contact Diagnoses Maternal care for other (suspected) abnormality and damage, not applicable or unspecified (HCC) Abnormal ultrasonic finding on screening of mother Alcohol use complicating , unspecified trimester (HCC) Procedures [place] FULL ROUT OBSTE CARE,VAGINAL DELIV Nel Dietz, HAZARD MITIGATION OFFICER [address] [facility] [address] [place] [address] [facility] Maternal Fet Shil [address] [place] [address] Referral ID Status Reason Start Date Expiration Date Visits Re quested Visits Authorized [id number] Closed 09/12/2018 03/11/2019 20 20 Encounter Details Date Type Department Care Team (Latest Contact Info) Description 10/10/2018 10:17 AM CDT - 10/10/2018 11:59 PM CDT Hospital Encounter [facility] & [facility] [address] [place] [address] Rehan Laura MD Discharge Disposition: Home or Self Care Social History Tobacco Use Types Packs/Day Years Used Date Smoking Tobacco: Never Alcohol Use Standard Drinks/Week Comments Yes 0 (1 standard drink = 0.6 oz pur e alcohol) socially Comments Yes Sex and Gender Information Value Date Recorded Sex Assigned at Not on file Gender Identity Not on file Sexual Orientation Not on file documented as of this encounter Medications at Time of Discharge Medication Sig Dispensed Refills Start Date End Date cyclobenzaprine (FLEXERIL) 10 MG tablet Take 1 tablet by mouth 3 times daily as needed for Muscle Spasms 12 tablet 12/19/2017 ibuprofen (MOTRIN) 800 MG tablet Take 1 tablet by mouth every 8 hours as needed for Pain 21 tablet 12/19/2017 documented as of this encounter Plan of Treatment Not on file documented as of this encounter Procedures Procedure Name Priority Date/Time Associated Diagnosis Comments SONOGRAM - COMPLETE Routine 10/10/2018 1 0:49 AM CDT Second (HCC) Encounter for ultrasound (HCC) Abnormal ultrasound documented in this encounter Results * SONOGRAM - COMPLETE (10/10/2018 10:49 AM CDT) Anatomical Region Laterality Modality Other 10/10/2018 10:4 9 AM CDT Narrative 10/10/2018 12:16 PM CDT ?[facility] ?PHONE: ??FAX: ? Pat. Name: ?JOLYNN BERGERON No: ?[id number] Study Date: ?? 10/10/2018 ??10:49am , Age: ? 1985, 33 Pregnancies: ?? 2, Para 1 Height: ? 67 in Weight: ? 144 lb LMP: ?Unknown GA by Base: ?? 33w5d ?? BOBBI: 11/23/2018 GA by US: ? 33w1d ?? BOBBI: 11/27/2018 GA Selected: ??33w5d (From [facility]) BOBBI: ?11/23/2018 Referring MD: Nel Dietz MD Human Services Worker: ??Edilma Robertson, ANDREW, RDCS CPT4: ? 79736 BMI: ?22.55 Hist/Ind: ? Complete Anatomy MEASUREMENTS & AGE ? GROWTH EVALUATION Measurement ??GA ? Range ? Srce %for GA Ratios ----- ---- ------- BPD ??8.3 cm 33w2d (67l5o-04p6c) Hadl BPD 30% FL/BPD 0.77 (0.71 - 0.87) HC ??31.4 cm 35w1d (86m2z-95l9u) Hadl HC ??54% FL/AC ??0.22 (0.20 - 0.24) AC ??29.2 cm 33w1d (33n3o-45j3h) Hadl AC ??37% HC/AC ??1.08 (0.95 - 1.13) FL ?? 6.3 cm 32w5d (00s7n-39p4g) Hadl FL ??15% CI ? 0.73 (0.70 - 0.86) HL ?? 5.7 cm 33w2d (98i0p-85e5n) Bogdan HL ??42% GA for sonogram 33w1d (69g8x-26c0l) ?? Weight Estimate: based on (BPD,HC,AC,FL) Hadlock [...] <Electronic Signature> ??10/10/2018 12:17pm Tereso Madrid MD [facility] ORDERABLES documented in this encounter Visit Diagnoses Diagnosis Second ([facility]) state, incidental Encounter for ultrasound ([facility]) Encounter for routine screening for malformation using ultrasonics Abnormal ultrasound Abnormal findings on screening Encounter for other screening follow-up ([facility]) 33 weeks gestation of ([facility]) state, incidental documented in this encounter
--- OUTSIDE RECORDS SUMMARY | 2024-03-22 19:27 | XMS_ITS | Clinical Summary ---
Author Organization [facility] Address [address] [place] [address] Care Team Providers Care Rn Imaging Name Role Phone Unavailable Primary Care Provider Unavailabl e Source Comments [facility],non-owned Affiliates and Associated Physician Practices is amultiple site organization consisting of ambulatory clinics and hospital sitesin [place], [place], [place] and [place]. This disclosure is being madepursuant to the Care Everywhere program and may not contain all information available regarding this patient. Last updated 17.[facility] Medications * Be aware that medications may [...] 12/19/2017 12:35 PM CDT Plan of Treatment Health Maintenance Due Date Last Done Comments PAP SMEAR 1985 HIV SCREENING 2002 HEPATITIS C SCREENING 02/13/2005 DTAP/TDAP/TD VACCINES (1 - Tdap) 2006 HEPATITIS B VACCINE (1 of 3 - 19+ 3-dose series) 2006 COVID-19 VACCINE ( - 2023-2 5 season) 2023 INFLUENZA VACCINE (#1) 2023 DEPRESSION SCREENING 03/01/2024 ZOSTER VACCINE (1 of 2) 2037 HIB VACCINE Aged Out No longer eligi ble based on patient's age to complete this topic HPV VACCINE Aged Out No longer eligi ble based on patient's age to complete this topic MENINGOCOCCAL (Group B) VACCINE Aged Out No longer eligible based on patient's age to complete this topic MENINGOCOCCAL VACCINE Aged Out No sahra tobias eligible based on patient's age to complete this topic PNEUMOCOCCAL VACCINE Aged Out No long er eligible based on patient's age to complete this topic Betsy Burch Personal/Family Self [address] [place], [place] [id number]
--- OUTSIDE RECORDS SUMMARY | 2024-03-22 19:27 | XMS_ITS | Encounter Summary ---
Author Organization [facility] Address [address] [place] [address] Care Team Providers Care Director Of Customer Service Name Role Phone Unavailable Primary Care Provider Unavailabl e Reason for Visit * Reason Onset Date Comments Follow-up 12/24/2017 Encounter Details Date Type Department Care Team (Late st Contact Info) Description 12/24/2017 Telephone [facility] CARE COORDINATION [address] [place] [phone] Kesha Meneses Follow-up Social History Tobacco Use Types Packs/Day Years Used Date Smoking Tobacco: Never Alcohol Use Standard Drinks/Week Comments Yes 0 (1 standard drink = 0.6 oz pur e alcohol) socially Sex and Gender Information Value Date Recorded Sex Assigned at Not on file Gender Identity Not on file Sexual Orientation Not on file documented as of this encounter Miscellaneous Notes * Telephone Encounter - Kesha Meneses - 12/24/2017 3:54 PM CDT Referral received. CRC spoke with patient who stated they do not need assistance establishing care with PCP. CRC services are no longer needed. Kseha Meneses, MPH Community Director Of Acquisition Marketing documented in this encounter Plan of Treatment Not on file documented as of this encounter Visit Diagnoses Not on filedocumented in this encounter
--- OUTSIDE RECORDS SUMMARY | 2024-03-22 19:27 | XMS_ITS | Encounter Summary ---
Author Organization [facility] Address [address] [place] [address] Care Team Providers Care Derrick Boat Leverman Name Role Phone Unavailable Primary Care Provider Unavailabl e Reason for Visit * Evaluate & Treat (Routine) - Closed Specialty Diagnoses / Procedures Referred By Delicia t Referred To Contact Diagnoses Maternal care for other (suspected) abnormality and damage, not applicable or unspecified (HCC) Abnormal ultrasonic finding on screening of mother Alcohol use complicating , unspecified trimester (HCC) Procedures [place] FULL ROUT OBSTE CARE,VAGINAL DELIV Nel Dietz, WEB INTERFACE DEVELOPER [address] [address] [facility] Maternal Fet Shil [address] [place] [address] Referral ID Status Reason Start Date Expiration Date Visits Re quested Visits Authorized [id number] Closed 09/12/2018 03/11/2019 20 20 Encounter Details Date Type Department Care Team (Latest Contact Info) Description 09/12/2018 9:39 AM CDT - 09/12/2018 11:59 PM CDT Hospital Encounter [facility] Maternal & Care [address] [place] [address] Tereso Madrid MD [address] [place] [address] Discharge Disposition: Home or Self Care Social [...] tablet 12/19/2017 documented as of this encounter Progress Notes * Adore Mccarthy - 09/12/2018 12:08 PM CDT No follow up appointment scheduled at time of checkout. documented in this encounter Plan of Treatment Not on file documented as of this encounter Procedures Procedure Name Priority Date/Time Associated Diagnosis Comments SONOGRAM - COMPLETE Routine 09/12/2018 1 0:11 AM CDT Second (HCC) Encounter for ultrasound (HCC) Abnormal ultrasound documented in this encounter Results * SONOGRAM - COMPLETE (09/12/2018 10:11 AM CDT) Anatomical Region Laterality Modality Other 09/12/2018 10:1 1 AM CDT Narrative 09/12/2018 2:02 PM CDT ? [facility] ?PHONE: ??FAX: Pat. Name: ?JOLYNN BERGERON. No: ?[id number] Study Date: ?? 09/12/2018 ??10:11am , Age: ? 1985, 33 Pregnancies: ?? 2, Para 1 Height: ? 67 in Weight: ? 144 lb LMP: ?Unknown GA by US: ? 29w0d ?? BOBBI: 11/28/2018 GA Selected: ??29w5d (From Known E) BOBBI: ?11/23/2018 Referring MD: Nel Dietz MD Test Engineer Nuclear Equipment: ??Onelia Stafford RDMS CPT4: ? 33276 BMI: ?22.55 Hist/Ind: ? Renal Pelvis Dilation on Outside Scan MEASUREMENTS & AGE ? GROWTH EVALUATION Measurement ??GA ? Range ? Srce %for GA Ratios ----- ---- ------- BPD ??7.3 cm 29w3d (34w3r-93k0q) Hadl BPD 27% FL/BPD 0.75 (0.71 - 0.87) HC ??26.5 cm 28w6d (26d0n-06l5y) Hadl HC ??4% FL/AC ??0.23 (0.20 - 0.24) AC ??24.5 cm 28w5d (45n9e-48g7u) Hadl AC ??18% HC/AC ??1.08 (0.98 - 1.17) FL ?? 5.5 cm 29w0d (58m4x-22q4y) Hadl FL ??18% CI ? 0.78 (0.70 - 0.86) HL ?? 5.0 cm 29w1d (98v0z-43n5c) Bogdan HL ??40% Cere 3.6 cm 29w5d (56r3o-25y6l) Hill Cere50% GA for sonogram 29w0d (63p6f-28j1o) ?? Weight Estimate: based on (HL,BPD,HC,AC,FL) Avg ? Weight: 1303 gm (1113-1493gm) Had ? : 2lbs, 13oz ? Normal: 1508 gm (1130- 1885gm) Had ? Wt% ? 15% for 29w5d Heart Rate: 155 bpm Amniotic Fluid Index: 20.9cm (09.1-23.3) Q1: 6.9cm ??Q2: 6.2cm ??Q3: 4.5cm ??Q4: 3.3cm ?? EVAL, PLACENTA Presentation: breech Umbilical Cord: 3 Vessels Placenta: left lateral Heart Rate: 155 bpm Amniotic Fluid Volume: normal Anatomy!Normal!Abnormal!Suboptimal!Prev. Seen!Comments Cranium ?! ?? x ??! ?! ?! ?! Mdl (CSP/Thal! ?? x ??! ?! ?! ?! Ventricles ?? ! ?? x ??! ?! ?! ?! Choroid Plexu! ?? x ??! ?! ?! ?! Cerebellum ?? ! ?? x ??! ?! ?! ?! Cisterna M. ??! ?? x ??! ?! ?! ?! Profile ?! ?? x ??! ?! ?! ?! Nasal Bone ?? ! ?? x ??! ?! ?! ?! Lip ?! ?? x ??! ?! ?! ?! Spine ?! ?? x ??! ?! ?! ?! Lungs ?! ?? x ??! ?! ?! ?! 4 Chamber Hea! ?? x ??! ?! ?! ?! LVOT ? ! ?? x ??! ?! ?! ?! RVOT ? ! ?? x ??! ?! ?! ?! 3 Vessel View! ?! ?! ? x ?! ?! Cross-over ?? ! ?! ?! ? x ?! ?! Ductal Arch ??! ?! ?! ? x ?! ?! Aortic Arch ??! ?? x ??! ?! ?! ?! Caval View ?? ! ?? x ??! ?! ?! ?! Situs ?! ?? x ??! ?! ?! ?! Diaphragm ?! ?? x ??! ?! ?! ?! Stomach ?! ?? x ??! ?! ?! ?! Bowel ?! ?? x ??! ?! ?! ?! Kidneys ?! ?? x ??! ?! ?! ?! Bladder ?! ?? x ??! ?! ?! ?! 3 Vessel Cord! ?? x ??! ?! ?! ?! Cord In! ?? x ??! ?! ?! ?! Upper Extremi! ?! ?! ? x ?! ?! Hands ?! ?! ?! ? x ?! ?! Lower Extreme! ?! ?! ? x ?! ?! Feet ? ! ?! ?! ? x ?! ?! External Terri! ?? x ??! ?! ?! ?!Female Placental Cor! ?? x ??! ?! ?! ?! CLINICAL SUMMARY Study Number: 1 ?? A single fetus is identified in breech presentation. ??The measurements today are consistent with appropriate size for the BOBBI provided. ??The BOBBI selected is based on a prior ultrasound. ?? The amniotic fluid volume is normal. ??The placenta is left lateral. ?? No major malformations are seen within the limitations of ultrasound examination. ??The patient was advised that ultrasound does not allow detection of all structural or chromosomal abnormalities. ?? IMPRESSION: 1. Single, live, IUP at 29w5d 2. Appropriate size and interval growth, HC measures small for gestational age 3. normal amniotic fluid volume 4. Anatomy survey is incomplete, no major malformations detected today, examination limited by positioning 5. No evidence of renal pelvis dilation. RECOMMEND: Follow up ultrasound in 4 weeks to complete the anatomy survey and to assess growth. ??Please schedule the follow up appointment. Thank you for allowing us the opportunity to care for your patient. Tereso Madrid MD <Electronic Signature> ??09/12/2018 01:29pm Ordering Provider Unlisted MD JESSICA DE ANDA documented in this encounter Visit Diagnoses Diagnosis Second (HCC)- Primary state, incidental Encounter for ultrasound ([facility]) Encounter for routine screening for malformation using ultrasonics Abnormal ultrasound Abnormal findings on screening 29 weeks gestation of (HCC) state, incidental documented in this encounter
--- OUTSIDE RECORDS SUMMARY | 2024-03-22 19:27 | XMS_ITS | Encounter Summary ---
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 A&Ox4. Shortness of Breath increased with deep breaths Encounter Details Date Type Department Care Team (Late Contact Info) Description 12/19/2017 5:02 PM CDT - 12/19/2017 6:30 PM CDT Emergency [facility] [address] [place] [address] Elmer Moya MD [address] [place] [address] [place] [address] Right-sided chest wall pain (Primary Dx) Discharge Disposition: Home or Self Care Social History Tobacco Use Types Packs/Day Years Used Date Smoking Tobacco: Never Alcohol Use Standard Drinks/Week Comments Yes 0 (1 standard drink = 0.6 oz pur e alcohol) socially Sex and Gender Information Value Date Recorded Sex Assigned at Not on file Gender Identity Not on file Sexual Orientation Not on file documented as of this encounter Last Filed Vital Signs Vital Sign Reading [...] Mass Index 18.79 12/19/2017 12:35 PM CDT documented in this encounter Discharge Instructions * Discharge Instructions* Elmer Moya MD - 12/19/2017 6:20 PM CDT Chest Wall Pain WHAT YOU NEED TO KNOW: Chest wall pain may be caused by problems with the muscles, cartilage, or bones of the chest wall. Chest wall pain may also be caused by pain that spreads to your chest from another part of your body. The pain may be aching, severe, dull, or sharp. It may come and go, or it may be constant. The pain may be worse when you move in certain ways, breathe deeply, or cough. DISCHARGE INSTRUCTIONS: Call 911 if: ?? You have any of the following signs of a heart attack: ?? Squeezing, pressure, or pain in your chest ?? and any of the following: ?? Discomfort or pain in your back, neck, jaw, stomach, or arm ?? Shortness of breath ?? Nausea or vomiting ?? Lightheadedness or a sudden cold sweat Return to the emergency department if: ?? You have severe pain. Contact your healthcare provider if: ?? You develop a rash. ?? You have other new symptoms. ?? Your pain does not improve, even with treatment. ?? You have questions or concerns about your condition or care. Medicines: You may need any of the following: ?? NSAIDs , such as ibuprofen, help decrease swelling, pain, and fever. This medicine is available with or without a doctor's order. NSAIDs can cause stomach bleeding or kidney problems in certain people. If you take blood thinner medicine, always ask your healthcare provider if NSAIDs are safe foryou. Always read the medicine label and follow directions. ?? Acetaminophen decreases pain. It is available without a doctor's order. Ask how much to take andhow often to take it. Follow directions. Acetaminophen can cause liver damage if not taken correctly. ?? A cream may be applied to your chest to decrease pain. ?? Take your medicine as directed. Contact your healthcare provider if you think your medicine is not helping or if you have side effects. Tell him of her if you are allergic to any medicine. Keep a list of the medicines, vitamins, and herbs you take. Include the amounts, and when and why you take them. Bring the list or the pill bottles to follow-up visits. Carry your medicine list with you in case of an emergency. Follow up with your healthcare provider as directed: Write down your questions so you remember to ask them during your visits. Self-care: ?? Rest as needed. Avoid activities that make your chest wall pain worse. ?? Apply heat on your chest for 20 to 30 minutes every 2 hours for as many days as directed. Heat helps decrease pain and muscle spasms. ?? Apply ice on your chest for 15 to 20 minutes every hour or as directed. Use an ice pack, or put crushed ice in a plastic bag. Cover it with a towel. Ice helps prevent tissue damage and decreases swelling and pain. ?? Copyright [employer] 2018 Information is for End User's use only and may not be sold, redistributed or otherwise used for commercial purposes. All illustrations and images included in CareNotes?? are the copyrighted property of [employer]. or [employer] The above information is an director of financial aid only. It is not intended as medical advice for individual conditions or treatments. Talk to your doctor, nurse or pharmacist before following any medical regimen to see if it is safe and effective for you. documented in this encounter Medications at Time of Discharge Medication Sig Dispensed Refills Start Date End Date cyclobenzaprine (FLEXERIL) 10 MG tablet Take 1 tablet by mouth 3 times daily as needed for Muscle Spasms 12 tablet 12/19/2017 ibuprofen (MOTRIN) 800 MG tablet Take 1 tablet by mouth every 8 hours as needed for Pain 21 tablet 12/19/2017 documented as of this encounter ED Notes * Purvi Soto RN - 12/19/2017 6:28 PM CDT Pt is able to be discharged, second troponin normal, she is discharged with treatment plan for musculoskeletal pain, prescriptions for anti-inflammatory and muscle relaxer included in packet, follow up advised with pmd if no improvement * Elmer Moya MD - 12/19/2017 5:02 PM CDT ED Attending Note Interval History: Betsy Burch is a 32 y.o. 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 Does not have exposure to chemicals. Symptoms have been intermittent at work over 2 weeks has not taken anything for symptoms yet. Pain better with nothing, worse with palpation and deep breathing. No cough, URI, cardiac history. No family history of cardiac disease or No past medical history on file. No past surgical history on file. Social History Social History ??? Marital status: Single Spouse name: N/A ??? Number of children: N/A ??? Years of education: N/A Occupational History ??? Not on file. Social History Main Topics ??? Smoking status: Never Smoker ??? Smokeless tobacco: Not on file ??? Alcohol use Yes Comment: socially ??? Drug use: No ??? Sexual activity: Not on file Other Topics Concern ??? Not on file Social History Narrative ??? No narrative on file Review of Systems: (+) positive All systems negative except as marked. Constitutional: Negative for fever HENT: Negative for sore throat. Eyes: Negative for visual changes Respiratory: Negative for SOB, cough Cardiovascular: + chest pain Gastrointestinal: Negative for abdominal pain, nausea, vomiting, diarrhea Genitourinary: Negative for difficulty urinating, hematuria, dysuria Musculoskeletal: Negative for neck pain, back pain, myalgia Skin: Negative for rash, itching Neurological: Negative for BROCK, dizziness, weakness, numbness, tingling Psychiatric: Negative for SI, hallucinations, anxiety Vitals: 12/19/17 1235 BP: (!) 139/100 Pulse: 68 Resp: 18 Temp: 97.8 ??F (36.6 ??C) SpO2: 100% Weight: 54.4 kg (120 lb) Height: 1.702 m (5' 7 ) Exam: Constitutional: well developed, well nourished, no acute distress HENT: normocephalic, atraumatic, moist oral mucosa, conjunctiva normal Eyes: PERRL, EOMi Neck: supple, normal ROM Cardiovascular: regular rate and rhythm, no murmur, diffuse reproducible chest pain in intercostal muscles R side Respiratory: clear to auscultation bilaterally, no wheezes, no respiratory distress Abdomen: soft, non-tender, non-distended Musculoskeletal: no edema or deformities Skin: warm, dry, no lesions Neurological: awake, alert&Ox4, moving all extremities, no focal motor/sensation deficits. Psychiatric: mood and affect normal Medical Decision Makin. Right sided chest wall pain likely MSK in nature given tenderness and symptoms Differential diagnosis considered: MSK vs sprain vs strain vs pulmonary vs acs Plan: EKG deferred by patient, trop negative x 2, CXR, NSAIDs for pain, likely discharge Results: Labs Reviewed CBC W AUTO DIFFERENTIAL - Abnormal; Notable for the following: Result Value Hemoglobin 11.8 (*) MCV 76.6 (*) MCH 24.0 (*) MCHC 31.3 (*) Monocytes Absolute 0.68 (*) All other components within normal limits COMPREHENSIVE METABOLIC PANEL - Abnormal; Notable for the following: Bilirubin Total 2.5 (*) Albumin/Globulin Ratio 0.9 (*) All other components within normal limits D-DIMER - Normal TROPONIN I - Normal HCG URINE QUALITATIVE - POINT OF CARE XR CHEST 2VW Final Result EXAMINATION: XR CHEST 2VW HISTORY: right chest pain COMPARISON: No prior study is available for comparison at the time of this dictation. FINDINGS: There is no focal consolidation, pleural effusion, or pneumothorax. The cardiomediastinal silhouette is normal. IMPRESSION: No acute pulmonary process. Dictated by Elicia Dodd MD (president). I, Dr. RODRI BARAJAS MD have personally reviewed and interpreted this examination/study. This report was electronically signed by RODRI BARAJAS MD on 12/19/2017 3:20 PM . EKG Interpretation: Deferred by patient ED course: The patient's Oxygen Saturation Monitor was interpreted by me. The reading was 100%. The patient was on RA at the time of the reading. This is interpreted as normal. 6:40 PM: I have reviewed her diagnostic findings and she has had an opportunity to ask me any questions she has about care, diagnosis and discharge plan. Patient is comfortable with the discharge plan. She will follow up as directed and will return to the ER if her condition worsens or she developsother urgent concerns. Consult No Procedure done at this time No Ultrasound done at this time No CRITICAL CARE IN THE ED No Orders and Medicine administered during this encounter: Orders Placed This Encounter ??? XR CHEST 2VW ??? CBC W AUTO DIFFERENTIAL ??? COMPREHENSIVE METABOLIC PANEL ??? D-DIMER ??? TROPONIN I ??? HCG URINE QUALITATIVE - POINT OF CARE ??? EKG 12-LEAD Medications - No data to display Clinical Impression: 1. Angina pectoris 2. Right-sided chest wall pain Scripts: Disposition: DC home Follow-up: I, Dr. Elmer Moya, personally performed the services described in this documentation. All medical record entries made by the scribe were at my direction and in my presence. I have reviewed the chart and agree that the record reflects my personal performance and is accurate and complete. Electronically signed: Dr. Elmer Moya Date: 12/19/2017 Time: 6:41 PM documented in this encounter Plan of Treatment Not on file documented as of this encounter Procedures Procedure Name Priority Date/Time Associated Diagnosis Comments CARDIAC EKG ORDER 01/10/2018 8:1 4 AM IGNITION EXPERT TROPONIN I STAT 12/19/2017 5:40 PM CDT TROPONIN I STAT 12/19/2017 3:29 PM CDT D-DIMER STAT 12/19/2017 3:29 PM CDT CBC W AUTO DIFFERENTIAL STAT 12/19/2017 3:29 PM CDT COMPREHENSIVE METABOLIC PANEL STAT 12/19/2017 3:29 PM CDT XR CHEST 2VW STAT 12/19/2017 2:57 PM CDT Right-sided chest wall pain HCG URINE QUALITATIVE - POINT OF CARE Routine 12/19/2017 2:19 PM CDT EKG 12-LEAD Routine 12/19/2017 1:24 PM CDT documented in this encounter Results * CARDIAC EKG ORDER (01/10/2018 8:14 AM IGNITION EXPERT) Narrative 01/10/2018 8:14 AM IGNITION EXPERT Ordered by an unspecified provider. Scanned Document CARDIAC SERVICES ORD ERABLES * TROPONIN I (12/19/2017 5:40 PM CDT) Troponin I <0.010 <0.032 ng/mL 12/19/2017 6:04 PM CDT [facility] Blood BLOOD SPECIMEN / Unknown Venipuncture / Unknown 12/19/2017 5:40 PM CDT 12/19/2017 5:44 PM CDT Elmer Moya MD LAB - CHEMISTRY ORDERABLES Performing Organization Address City/[facility]/ZIP Co de Phone Number [address] [phone] * TROPONIN I (12/19/2017 3:29 PM CDT) Pathologist [facility] Troponin I <0.010 <0.032 ng/mL 12/19/2017 4:42 PM CDT [facility] Blood BLOOD SPECIMEN / Unknown Venipuncture / Unknown 12/19/2017 3:29 PM CDT 12/19/2017 4:24 PM CDT Elmer Moya MD LAB - CHEMISTRY ORDERABLES [address] [phone] * D-DIMER (12/19/2017 3:29 PM CDT) D-Dimer Quantitative <0.27 <=0.50 mcg/mL FEU 12/19/2017 4:30 PM CDT [facility] Comment: In the absence of clinical [...] CDT 12/19/2017 3:33 PM CDT Pedro Vaughn MEDICAL RESEARCHER-APPEALS ASSISTANT LAB - [place] [address], [facility] [phone] * (ABNORMAL) COMPREHENSIVE METABOLIC PANEL (12/19/2017 3:29 PM CDT) BUN 9 7 - 26 mg/dL 12/19/2017 3:51 PM CDT [facility] Creatinine 0.7 0.6 - 1.2 mg/dL 12/19/2017 3:51 PM CDT [facility] Sodium 137 136 - 145 mmol/L 12/19/2017 3:51 PM CDT [facility] Potassium 3.7 3.5 - 4.5 mmol/L 12/19/2017 3:51 PM CDT [facility] Chloride 104 98 - 107 mmol/L 12/19/2017 3:51 PM CDT [facility] CO2 25 22 - 29 mmol/L 12/19/2017 3:51 PM [facility] Glucose 93 70 - 115 mg/dL 12/19/2017 3:51 PM [facility] Calcium 9.0 8.4 - 10.2 mg/dL 12/19/2017 3:51 PM [facility] Protein Total 7.8 6.0 - 8.3 g/dL 12/19/2017 3:51 PM [facility] Albumin 3.7 3.4 - 5.0 g/dL 12/19/2017 3:51 PM [facility] Bilirubin Total 2.5(H) 0.2 - 1.2 mg/dL 12/19/2017 3:51 PM [facility] Alkaline Phosphatase 53 40 - 150 Units/L 12/19/2017 3:51 PM [facility] ALT 7 0 - 55 Units/L 12/19/2017 3:51 PM [facility] AST 15 5 - 34 Units/L 12/19/2017 3:51 PM [facility] Anion Gap 12 8 - 18 12/19/2017 3:51 PM [facility] BUN/Creatinine Ratio 13 7 - 23 12/19/2017 3:51 PM [facility] Osmolality Calculated 282 270 - 300 mOsm/kg 12/19/2017 3:51 PM [facility] Albumin/Globulin Ratio 0.9(L) 1.1 - 2.3 12/19/2017 3:51 PM [facility] eGFR >60 >60 mL/min/1.7 3 m2 12/19/2017 3:51 PM [facility] Blood BLOOD SPECIMEN / Unknown Venipuncture / Unknown 12/19/2017 3:29 PM CDT 12/19/2017 3:32 PM CDT Pedro Vaughn MEDICAL RESEARCHER-APPEALS ASSISTANT LAB - CHEMISTR Y ORDERABLES [address] [phone] * (ABNORMAL) CBC W AUTO DIFFERENTIAL (12/19/2017 3:29 PM CDT) [facility] WBC 6.6 3.5 - 10.5 10? 3 /uL 12/19/2017 3:37 PM [facility] RBC 4.92 3.90 - 5.00 10? 6 /uL 12/19/2017 3:37 PM [facility] Hemoglobin 11.8(L) 12.0 - 15.5 g/dL 12/19/2017 3:37 PM [facility] Hematocrit 37.7 35.0 - 45.0 % 12/19/2017 3:37 PM [facility] MCV 76.6(L) 81.0 - 97.0 fL 12/19/2017 3:37 PM [facility] MCH 24.0(L) 28.0 - 34.0 pg 12/19/2017 3:37 PM [facility] MCHC 31.3(L) 32.0 - 36.0 g/dL 12/19/2017 3:37 PM [facility] Platelet Count 260 150 - 400 10? 3 /uL 12/19/2017 3:37 PM [facility] RDW-SD 39.2 36.0 - 50.0 fL 12/19/2017 3:37 PM [facility] RDW-CV 13.9 11.2 - 14.8 % 12/19/2017 3:37 PM [facility] MPV 10.0 9.3 - 12.8 fL 12/19/2017 3:37 PM [facility] Neutrophils % 58.1 35.0 - 70.0 % 12/19/2017 3:37 PM [facility] Lymphocytes % 29.9 19.7 - 55.1 % 12/19/2017 3:37 PM [facility] Monocytes % 10.3 3.0 - 15.0 % 12/19/2017 3:37 PM [facility] Eosinophils % 1.5 0.0 - 6.0 % 12/19/2017 3:37 PM [facility] Basophil % 0.2 0.0 - 1.5 % 12/19/2017 3:37 PM [facility] Neutrophils Absolute 3.8 1.6 - 7.0 10? 3 /uL 12/19/2017 3:37 PM CDT [facility] Lymphocyte Absolute 2.0 0.8 - 2.9 10? 3 /uL 12/19/2017 3:37 PM CDT [facility] Monocytes Absolute 0.68(H) 0.14 - 0.66 10? 3 /uL 12/19/2017 3:37 PM CDT [facility] Eosinophils Absolute 0.10 0.00 - 0.22 10? 3 /uL 12/19/2017 3:37 PM CDT [facility] Basophils Absolute 0.01 0.00 - 0.06 10? 3 /uL 12/19/2017 3:37 PM CDT [facility] Immature Granulocytes % 0.0 0.0 - 1.0 % 12/19/2017 3:37 PM CDT [facility] Blood BLOOD SPECIMEN / Unknown Venipuncture / Unknown 12/19/2017 3:29 PM CDT 12/19/2017 3:32 PM CDT Pedro Vaughn MEDICAL RESEARCHER-APPEALS ASSISTANT LAB - HEMATOLO GY ORDERABLES Performing Organization Address City/State/[facility] Co de Phone Number [address] [phone] * XR CHEST 2VW (12/19/2017 2:57 PM CDT) Anatomical Region Laterality Modality Chest Radiographic Christina ging 12/19/2017 3:09 PM CDT Impressions 12/19/2017 3:20 PM CDT IMPRESSION: No acute pulmonary process. Dictated by Elicia Dodd MD (president). I, Dr. RODRI BARAJAS MD have personally [...] pulmonary process. Dictated by Elicia Dodd MD (president). I, Dr. RODRI BARAJAS MD have personally reviewed and interpreted this examination/study. This report was electronically signed by RODRI BARAJAS MD on 12/19/2017 3:20 PM . Pedro AWAN DIAGNOSTIC CHRISTINA GING ORDERABLES * HCG URINE QUALITATIVE - POINT OF CARE (12/19/2017 2:19 PM CDT) HCG Qual Urine Negative Negative [facility] P OCT TESTING QC Verified Yes Yes [facility] POCT TESTING Urine URINE / Unknown 12/19/2017 2 :19 PM CDT Pedro AWAN LAB - POINT OF CARE ORDERABLES [facility] [address] [phone] * EKG 12-LEAD (12/19/2017 1:24 PM CDT) Ventricular Rate 59 BPM [facility] Atrial Rate 59 BPM [facility] P-R Interval 128 ms [facility] QRS Duration ms 64 ms [facility] Q-T Interval ms 400 ms [facility] QTC Calculation (Bezet) 396 ms [facility] Calculated P [place] 64 degrees [facility] Calculated R [place] 47 degrees [facility] Calculated T [place] 47 degrees [facility] Interpretation EKG SINUS BRADYCARDIA OTHERWISE NORMAL ECG NO PREVIOUS ECGS AVAILABLE Confirmed by DAHLIA.JERRELL DURBIN ([id number]), supervising editor trailer Albert Ramirez ([id number]) on 01/05/2018 11:34:13 AM [facility] 12/19/2017 1:24 PM CDT 01/05/2018 11:34 AM IGNITION EXPERT Elmer Moya MD ECG ORDERABLES [facility] documented in this encounter Visit Diagnoses Diagnosis Right-sided chest wall pain- Primary Painful respiration Angina pectoris (HCC) documented in this encounter Administered Medications Inactive Administered Medications - up to 3 most recent administrations Medication Order MAR Action Action Date Dose Rate Site cyclobenzaprine (FLEXERIL) tablet 10 mg 10 mg, Oral, NOW, 1 dose, On 12/19/17 at 1715 $ Given 12/19/2017 5:40 PM CDT 10 mg ibuprofen (MOTRIN) tablet 600 mg 600 mg, Oral, NOW, 1 dose, On 12/19/17 at 1715, Maximum allowable amount = 3200 mg / 24 hours. $ Given 12/19/2017 5:40 PM CDT 600 mg documented in this encounter Active and Recently Administered Medications Times are shown in CDT. Scheduled Medication Order 12/17/2017 12/18/2017 12/19/2017 cyclobenzaprine (FLEXERIL) tablet 10 mg (COMPLETED) 10 mg, Oral, NOW, 1 dose, On 12/19/17 at 1715 1740 ($ Given - Prov ider: Purvi Soto RN) ibuprofen (MOTRIN) tablet 600 mg (COMPLETED) 600 mg, Oral, NOW, 1 dose, On 12/19/17 at 1715, Maximum allowable amount = 3200 mg / 24 hours. 1740 ($ Given - Prov ider: Purvi Soto RN) documented in this encounter
--- OUTSIDE RECORDS SUMMARY | 2024-04-06 07:58 | XMS_ITS | Clinical Summary ---
Author Organization [facility] Address [address] [place] [address] Care Team Providers Care Pad Assembler Name Role Phone Unavailable Primary Care Provider Unavailabl e Social History Tobacco Use Types Packs/Day Years Used Date Smoking Tobacco: Never Assessed Comments Unknown Sex and Gender Information Value Date Recorded Sex Assigned at Not on file Legal Sex Female 8:14 PM PST Gender Identity Not on file Sexual Orientation Not on file Plan of Treatment Not on file
--- OUTSIDE RECORDS SUMMARY | 2024-04-06 07:58 | XMS_ITS | Encounter Summary ---
Author Organization [facility] Address [address] [place] [address] Care Team Providers Care Wire Tester Name Role Phone Unavailable Primary Care Provider Unavailabl e Prior Encounters Date Type Department Care Team Description 03/20/2019 Converted 13x Documents [facility] [address] [place] [phone] <No scans attached> Plan of Treatment Not on file Procedures Procedure Name Priority Date/Time Associated Diagnosis Comments MISSED APPOINTMENT Routine 04/04/2020 2:00 AM FUR LINER Visit Diagnoses Not on file
--- OUTSIDE RECORDS SUMMARY | 2024-04-06 07:58 | XMS_ITS | Clinical Summary ---
Author Organization [facility] Address [address] [place] [address] Care Team Providers Care Horse Shoer Name Role Phone Unavailable Primary Care Provider Unavailabl e Source Comments [facility],non-owned Affiliates and Associated Physician Practices is amultiple site organization consisting of ambulatory clinics and hospital sitesin [place], [place], [place] and [place]. This disclosure is being madepursuant to the Care Everywhere program and may not contain all information available regarding this patient. Last updated 17.[facility] Medications * Be aware that medications may [...] 68 12/19/2017 12:35 PM CDT Temperature 36.6 C (97.8 F) 12/19/2017 12:35 PM CDT Respiratory Rate 18 12/19/2017 12:35 PM CDT [...] - 19+ 3-dose series) 2006 COVID-19 VACCINE (1 - 2023-2 5 season) 2023 INFLUENZA VACCINE [...]
--- OUTSIDE RECORDS SUMMARY | 2024-04-06 07:58 | XMS_ITS | CCD ---
Author Organization [facility] [place] [place] Address [address] [place] [address] Care Team Providers Care Golf Club Maker Name Role Phone Unavailable Primary Care Provider [...]
--- OUTSIDE RECORDS SUMMARY | 2024-04-06 07:58 | XMS_ITS | Referral Summary ---
Author Organization [facility] Address [address] [place] [address] Care Team Providers Care Blood Donor Recruiter Supervisor Name Role Phone Unavailable Primary Care Provider [...]
--- OUTSIDE RECORDS SUMMARY | 2024-04-06 07:58 | XMS_ITS | Referral Summary ---
Author Organization [facility] Address [address] [place] [address] Care Team Providers Care Sock Boarder Name Role Phone Unavailable Primary Care Provider Unavailabl e Source Comments [facility],non-owned Affiliates and Associated Physician Practices is amultiple site organization consisting of ambulatory clinics and hospital sitesin [place], [place], [place] and [place]. This disclosure is being madepursuant to the Care Everywhere program and may not contain all information available regarding this patient. Last updated 17.[facility] [employer] Medications * Be aware that medications may [...] Plan of Treatment Not on file Betsy Burch Personal/Family Self [address] [place] [address]
--- OUTSIDE RECORDS SUMMARY | 2024-04-06 07:58 | XMS_ITS ---
Author Organization [facility] Address [address] [place] [address] Care Team Providers Care Clamshell Engineer Name Role Phone Unavailable Unavailable Unavailable Surgery Details Not on file Complications Check Surgery Details section. Procedure Estimated Blood Loss Check Surgery Details section. Procedure Findings Check Surgery Details section. Procedure Specimens Taken Check Surgery Details section.
--- OUTSIDE RECORDS SUMMARY | 2024-04-06 07:58 | XMS_ITS | Patient Health Summary ---
Author Organization [facility] [employer] Address [address] [place] [address] Care Team Providers Care Chief Of Surgery Name Role Phone Unavailable Primary Care Provider Unavailabl e Note from [facility] [employer] [facility],non-owned Affiliates and Associated Physician Practices is amultiple site organization consisting of ambulatory clinics and hospital sitesin [place], [place], [place] and [place]. This disclosure is being madepursuant to the Care Everywhere program and may not contain all information available regarding this patient. Last updated 17.[facility] [employer] Medications * Be aware that medications may [...] AM CDT Narrative 10/10/2018 12:16 PM CDT Nilsa PILLAI [facility] PHONE: FAX: Pat. Name: BETSY BURCH Yumiko. No: [id number] Study Date: 10/10/2018 10:49am , Age: 14 1985, 33 Pregnancies: 2, Para 1 Height: 67 in Weight: 144 lb LMP: Unknown GA by Base: 33w5d BOBBI: 11/23/2018 GA by US: 33w1d BOBBI: 11/27/2018 GA Selected: 33w5d (From [facility]) BOBBI: 11/23/2018 Referring MD: Nel Dietz MD Die Trouble Shooter: Edilma Robertson, RDNE, RDCS CPT4: 30130 BMI: 22.55 Hist/Ind: Complete Anatomy MEASUREMENTS & AGE GROWTH EVALUATION Measurement GA Range Srce %for GA Ratios ----- ---- ------- BPD 8.3 cm 33w2d ([id number]) Hadl BPD 30% FL/BPD 0.77 (0.71 - 0.87) HC 31.4 cm 35w1d (47s4t-30i8e) Hadl HC 54% FL/AC 0.22 (0.20 - 0.24) AC 29.2 cm 33w1d (78d5s-43m6g) Hadl AC 37% HC/AC 1.08 (0.95 - 1.13) FL 6.3 cm 32w5d (32a1x-12m8i) Hadl FL 15% CI 0.73 (0.70 - 0.86) HL 5.7 cm 33w2d (97w2z-86h5r) Bogdan HL 42% GA for sonogram 33w1d ([id number]) Weight Estimate: based on (BPD,HC,AC,FL) Hadlock Weight: 2151 gm (1837-2465gm) Had : 4lbs, 11oz Normal: 2316 gm (1737-2894gm) Had Wt% 29% for 33w5d Heart Rate: 162 bpm Amniotic Fluid Index: 15.2cm (08.2-24.7) Q1: 4.0cm Q2: 3.1cm Q3: 4.9cm Q4: 3.2cm EVAL, PLACENTA Presentation: cephalic Placenta: left lateral Heart Rate: 162 bpm Amniotic Fluid Volume: Normal Anatomy!Normal!Abnormal!Suboptimal!Prev. Seen!Comments Cranium ! ! ! ! x ! Mdl (CSP/Thal! ! ! ! x ! Ventricles ! ! ! ! x ! Choroid Plexu! ! ! ! x ! Cerebellum ! ! ! ! x ! Cisterna M. ! ! ! ! x ! Profile ! ! ! ! x ! Nasal Bone ! ! ! ! x ! Lip ! ! ! ! x ! Spine ! ! ! ! x ! Lungs ! ! ! ! x ! 4 Chamber Hea! ! ! ! x ! LVOT ! ! ! ! x ! RVOT ! ! ! ! x ! 3 Vessel View! x ! ! ! ! Cross-over ! x ! ! ! ! Ductal Arch ! x ! ! ! ! Aortic Arch ! ! ! ! x ! Caval View ! ! ! ! x ! Situs ! ! ! ! x ! Diaphragm ! ! ! ! x ! Stomach ! x ! ! ! x ! Bowel ! ! ! ! x ! Kidneys ! x ! ! ! x ! Bladder ! x ! ! ! x ! 3 Vessel Cord! ! ! ! x ! Cord In! ! ! ! x ! Upper Extremi! x ! ! ! ! Hands ! x ! ! ! ! Lower Extreme! x ! ! ! ! Feet ! x ! ! ! ! External Terri! ! ! ! x ! Placental Cor! ! ! ! x ! CLINICAL SUMMARY Study Number: 2 A single fetus is seen in the cephalic presentation. The measurements today are consistent with what is expected. The BOBBI is based on a prior ultrasound. The amniotic fluid volume is Normal. No obvious structural anomalies are seen. IMPRESSION: Single, live, IUP at 33w5d. growth: Normal Amniotic fluid volume: Normal RECOMMEND: Follow up ultrasound as clinically indicated. Thank you for allowing us the opportunity to care for your patient. Rehan Laura MD <Electronic Signature> 10/10/2018 12:17pm Tereso Madrid MD [facility] ORDERABLES * CARDIAC EKG ORDER (01/10/2018 8:14 AM ASSISTANT PROFESSOR OF ECONOMICS) Narrative 01/10/2018 8:14 AM ASSISTANT PROFESSOR OF ECONOMICS Ordered by an unspecified provider. Scanned Document CARDIAC SERVICES ORD ERABLES * TROPONIN I (12/19/2017 5:40 PM CDT) Only the most recent of2 resultswithin the time period is included. Pathologist [facility] Troponin I <0.010 <0.032 ng/mL 12/19/2017 6:04 PM CDT [facility] Blood BLOOD SPECIMEN / Unknown Venipuncture / Unknown 12/19/2017 5:40 PM CDT 12/19/2017 5:44 PM CDT Elmer Moya MD LAB - CHEMISTRY ORDERABLES [id number] [place] [address] * D-DIMER (12/19/2017 3:29 PM CDT) [facility] D-Dimer Quantitative <0.27 <=0.50 mcg/mL FEU 12/19/2017 4:30 PM CDT [facility] Comment: In the absence of clinical symptoms, a value less than or equal to 0.5 mcg/mL FEU significantly decreases the probability of PE/DVT (negative predictive value >95%). 1 mcg/mL FEU = 1 Fibrinogen Equivalent Unit (approximates 0.5 mcg/ml of D- Dimer). ISTH DIAGNOSTIC SCORING SYSTEM FOR DIC Score 0 1 2 3 Platelet Count(x10^3/uL) > 100 < 100 < 50 N/A PT Prolongation above upper limit of normal 0-3 3-6 > 6 N/A range (seconds) Fibrinogen (mg/dL) > 100 < 100 N/A N/A D-Dimer (mcg/mL FEU) < 0.50 N/A 0.50-5.0 > 5 Calculate Cumulative Score: > or = 5 :compatible with overt DIC < 5 :suggestive for non-overt DIC N/A = Non applicable Reference: Br. J. Haematol. 145:24-33,2009. Blood BLOOD SPECIMEN / Unknown Venipuncture / Unknown 12/19/2017 3:29 PM CDT 12/19/2017 3:33 PM CDT Pedro Vaughn WEATHERIZATION ADMINISTRATOR-FLOWERS SALESPERSON LAB - COAGULAT ION ORDERABLES [address] [phone] * (ABNORMAL) CBC W AUTO DIFFERENTIAL (12/19/2017 3:29 PM CDT) WBC 6.6 3.5 - 10.5 10 3/uL 12/19/2017 3:37 PM [facility] RBC 4.92 3.90 - 5.00 10 6/uL 12/19/2017 3:37 PM [facility] Hemoglobin 11.8(L) 12.0 - 15.5 g/dL 12/19/2017 3:37 PM [facility] Hematocrit 37.7 35.0 - 45.0 % 12/19/2017 3:37 PM [facility] MCV 76.6(L) 81.0 - 97.0 fL 12/19/2017 3:37 PM [facility] MCH 24.0(L) 28.0 - 34.0 pg 12/19/2017 3:37 PM [facility] MCHC 31.3(L) 32.0 - 36.0 g/dL 12/19/2017 3:37 PM [facility] Platelet Count 260 150 - 400 10 3/uL 12/19/2017 3:37 PM [facility] RDW-SD 39.2 36.0 - 50.0 fL 12/19/2017 3:37 PM [facility] RDW-CV 13.9 11.2 - 14.8 % 12/19/2017 3:37 PM [facility] MPV 10.0 9.3 - 12.8 fL 12/19/2017 3:37 PM [facility] Neutrophils % 58.1 35.0 - 70.0 % 12/19/2017 3:37 PM [facility] Lymphocytes % 29.9 19.7 - 55.1 % 12/19/2017 3:37 PM [facility] Monocytes % 10.3 3.0 - 15.0 % 12/19/2017 3:37 PM [facility] Eosinophils % 1.5 0.0 - 6.0 % 12/19/2017 3:37 PM [facility] Basophil % 0.2 0.0 - 1.5 % 12/19/2017 3:37 PM [facility] Neutrophils Absolute 3.8 1.6 - 7.0 10 3/uL 12/19/2017 3:37 PM [facility] Lymphocyte Absolute 2.0 0.8 - 2.9 10 3/uL 12/19/2017 3:37 PM [facility] Monocytes Absolute 0.68(H) 0.14 - 0.66 10 3/uL 12/19/2017 3:37 PM [facility] Eosinophils Absolute 0.10 0.00 - 0.22 10 3/uL 12/19/2017 3:37 PM [facility] Basophils Absolute 0.01 0.00 - 0.06 10 3/uL 12/19/2017 3:37 PM [facility] Immature Granulocytes % 0.0 0.0 - 1.0 % 12/19/2017 3:37 PM [facility] Blood BLOOD SPECIMEN / Unknown Venipuncture / Unknown 12/19/2017 3:29 PM CDT 12/19/2017 3:32 PM CDT Pedro Vaughn WEATHERIZATION ADMINISTRATOR-FLOWERS SALESPERSON LAB - HEMATOLO GY ORDERABLES [facility] [address] [phone] * (ABNORMAL) COMPREHENSIVE METABOLIC PANEL (12/19/2017 3:29 PM CDT) BUN 9 7 - 26 mg/dL 12/19/2017 3:51 PM [facility] Creatinine 0.7 0.6 - 1.2 mg/dL 12/19/2017 3:51 PM [facility] Sodium 137 136 - 145 mmol/L 12/19/2017 3:51 PM [facility] Potassium 3.7 3.5 - 4.5 mmol/L 12/19/2017 3:51 PM [facility] Chloride 104 98 - 107 mmol/L 12/19/2017 3:51 PM [facility] CO2 25 22 - 29 mmol/L 12/19/2017 3:51 PM [facility] Glucose 93 70 - 115 mg/dL 12/19/2017 3:51 PM [facility] Calcium 9.0 8.4 - 10.2 mg/dL 12/19/2017 3:51 PM [facility] Protein Total 7.8 6.0 - 8.3 g/dL 12/19/2017 3:51 PM [facility] Albumin 3.7 3.4 - 5.0 g/dL 12/19/2017 3:51 PM [facility] Bilirubin Total 2.5(H) 0.2 - 1.2 mg/dL 12/19/2017 3:51 PM [facility] Alkaline Phosphatase 53 40 - 150 Units/L 12/19/2017 3:51 PM [facility] ALT 7 0 - 55 Units/L 12/19/2017 3:51 PM [facility] AST 15 5 - 34 Units/L 12/19/2017 3:51 PM [facility] Anion Gap 12 8 - 18 12/19/2017 3:51 PM [facility] BUN/Creatinine Ratio 13 7 - 23 12/19/2017 3:51 PM [facility] Osmolality Calculated 282 270 - 300 mOsm/kg 12/19/2017 3:51 PM [facility] Albumin/Globulin Ratio 0.9(L) 1.1 - 2.3 12/19/2017 3:51 PM [facility] eGFR >60 >60 mL/min/1.7 3 m2 12/19/2017 3:51 PM CDT [facility] Blood BLOOD SPECIMEN / Unknown Venipuncture / Unknown 12/19/2017 3:29 PM CDT 12/19/2017 3:32 PM CDT Kilob[employer] Ibrahimnoel DAVILAN-FLOWERS SALESPERSON LAB - CHEMISTR Y ORDERABLES [facility] [address] [place] [address] * XR CHEST 2VW (12/19/2017 2:57 PM CDT) Anatomical Region Laterality Modality Chest Radiographic Christina ging 12/19/2017 3:09 PM CDT Impressions 12/19/2017 3:20 PM CDT IMPRESSION: No acute pulmonary process. Dictated by Elicia Dodd MD (president/gm production & live experiences). Dr. RODRI Vega MD have personally reviewed and interpreted this examination/study. This report was electronically signed by RODRI BARAJAS MD on 12/19/2017 3:20 PM . Narrative 12/19/2017 3:20 [...] pulmonary process. Dictated by Elicia Dodd MD (president/gm production & live experiences). Dr. RODRI Vega MD have personally reviewed and interpreted this examination/study. This report was electronically signed by RODRI BARAJAS MD on 12/19/2017 3:20 PM . Pedro Vaughn APRN-FLOWERS SALESPERSON DIAGNOSTIC CHRISTINA GING ORDERABLES * HCG URINE QUALITATIVE - POINT OF CARE (12/19/2017 2:19 PM CDT) HCG Qual Urine Negative Negative [facility] P OCT TESTING QC Verified Yes Yes [facility] POCT TESTING Urine URINE / Unknown 12/19/2017 2 :19 PM CDT Kil[employer] Ibrahimrley WEATHERIZATION ADMINISTRATOR-FLOWERS SALESPERSON LAB - POINT OF CARE ORDERABLES Performing Organization Address [facility] Co de Phone Number H POCT TESTING [address] [phone] * EKG 12-LEAD (12/19/2017 1:24 PM CDT) Ventricular Rate 59 BPM [facility] Atrial Rate 59 BPM [facility] P-R Interval 128 ms [facility] QRS Duration ms 64 ms [facility] Q-T Interval ms 400 ms [facility] QTC Calculation (Bezet) 396 ms [facility] Calculated P Gary 64 degrees [facility] Calculated R Gary 47 degrees [facility] Calculated T Gary 47 degrees [facility] Interpretation EKG SINUS BRADYCARDIA OTHERWISE NORMAL ECG NO PREVIOUS ECGS AVAILABLE Confirmed by VILLAGOMEZ.JERRELL DURBIN ([id number]), avid editor Albert Ramirez ([id number]) on 01/05/2018 11:34:13 AM [facility] 12/19/2017 1:24 PM CDT 01/05/2018 11:34 AM ASSISTANT PROFESSOR OF ECONOMICS Elmer Moya MD ECG ORDERABLES Performing Organization Address City/[facility] Co de Phone Number [facility]
--- NOTE | 2024-05-01 09:34 | WPDSLEEPSTUD ---
Sleep Study Date of Study: 04/06/24 Ordering Provider: Itzel Santana APRN Interpreting Physician: Natalya Costa DO Sleep Study Type: Polysomnogram Height: 1.7 m Weight: 72.575 kg Body Mass Index: 25.0 Neck Circumference (inches): 14 [place]: 16 Reason for Sleep Study Daytime hypersomnia Sleep History The patient is a 39-year-old female that had a sleep study ordered by her primary care for evaluation of sleep apnea. The patient denies awakening from sleep short of breath. She denies awakening at night with heartburn, belching or cough. She constantly snores loudly enough that others complain. He occasionally has trouble sleeping when she has a cold. She denies waking up gasping for air throughout the night. She constantly has breathing problems at night observed by herself or others. She rarely sweats excessively at night. She occasionally has heart palpitations or irregular heartbeats during the night. She rarely falls asleep during the day but never while driving. She denies sleep paralysis, cataplexy and hypnagogic/ hypnopompic hallucinations. She rarely has trouble at school or work due to sleepiness. She denies feeling afraid of going to sleep. She denies having nightmares. She denies remembering her dreams. She constantly has thoughts racing through her mind. She constantly feels sad, depressed and anxious. She denies having muscular tension. She rarely notices parts of her body jerk. She denies kicking during the night. She denies having crawling and aching feelings in her legs but frequently has leg pain during the night. She denies grinding her teeth during sleep and denies awakening with morning jaw pain. She is occasionally bothered by pain during the day but never awakened by pain during the night. She denies waking up feeling stiff in the morning. She rarely wakes up with sore or achy muscles. She denies waking up with pain in neck, spine other joints. She goes to bed at 10:00 p.m. on weekdays and at midnight on the weekends. It takes her 10 minutes to fall asleep. She wakes up 3-4 times throughout the night to urinate. She wakes up between 2:23 a.m. daily. She typically gets 6 hours of sleep per night. She will stay in bed for 15 minutes after waking up in the morning. She currently lives with her and 3 children. She denies consuming any caffeinated beverages within 2 hours of bedtime. She denies engaging in physical exercise before bedtime. She will watch television before falling asleep. She denies taking naps in the afternoon or the evening. She denies consuming any caffeinated beverages throughout the day. She will consume 1 alcoholic beverage per week. She denies tobacco and recreational drug use. [facility] Past Medical History Medical History History of miscarriage Periodic limb movement Sleep difficulties Vaginitis Pain in scapula Anemia Asthma Family History Family History Father No problems noted. Other Hypertension Social History Social History Smoking status: Never smoker Second hand tobacco smoke exposure: No Alcohol intake: current Alcohol use details: occasional Substance use: never Substance use type: does not use Do You Feel Safe in your Home?: Yes Lack of Transportation: No Lack of Food: Never True Current Housing: I Have Housing Concerned About Future Housing: No Difficulty Paying Gas/Electric Bills: No Difficulty Paying for Meds: No Currently Unemployed: No Education: High School Diploma/GED Difficulty w/ Childcare or Family Care: No Living arrangements: with family Occupation/Education: occupation Gender identity (if verbalized by the patient): Female Sexual Orientation (if Verbalized by the Patient): Straight or Heterosexual Spiritual care concerns: No Agree to blood products: Yes Medications Home Medications ?Medication ?Instructions ?Recorded ?Confirmed ?Type albuterol sulfate 90 mcg/actuation 1 puff inhalation Q4H PRN 11/25/23 02/09/24 Rx aerosol inhaler shortness of breath or wheezing #8.5 grams sertraline 50 mg tablet (Zoloft) 50 mg PO DAILY #30 tabs 01/25/24 02/09/24 Rx ferrous sulfate 325 mg (65 mg 325 mg PO DAILY #90 tabs 01/31/24 02/09/24 Rx iron) tablet acetaminophen 500 mg tablet 1,000 mg (2 x 500 mg) PO Q6H PRN 02/09/24 02/09/24 Rx pain #30 tabs sumatriptan succinate 50 mg tablet See Rx Instructions PO .COMPLEX 02/09/24 02/09/24 Rx #14 tabs zolpidem 5 mg tablet 5 mg PO ONCE #1 tablet 04/06/24 Rx Sleep Procedure A full night polysomnogram using the [employer] Software multi-channel system recorded the standard physiologic parameters including EEG, EOG, submentalis EMG, anterior tibialis EMG, EKG, body position, nasal and oral airflow using nasal pressure sensor and thermistor.? Respiratory parameters of chest and abdominal movements were recorded with Respiratory Inductance Plethysmography belts. Oxygen saturation was recorded by pulse oximetry. Video monitoring was also performed. Sleep stages, periodic limb movements, and EEG arousals were scored in 30 second epochs according to the criteria of the AASM Scoring Manual. The Apnea-Hypopnea Index was calculated using [facility] guidelines for definition of hypopnea with 4% O2 desaturations while scoring respiratory events. Sleep Architecture The total recording time was 522.4 minutes.? The total sleep time was 468.5 minutes. Sleep latency was 15.9 minutes. REM latency was 124.5 minutes. Sleep efficiency was 89.7%. The patient had 27 awakenings for an awakening index of 3.5. Wake after sleep onset time was 38.5 minutes. The patient spent 29.5 minutes, 6.3% of total sleep time in Stage N1. The patient spent 325.0 minutes, 69.4% in Stage N2. The patient spent 54.5 minutes, 11.6% in Stage N3. The patient spent 59.5 minutes, 12.7% in Stage REM sleep. Respiratory Analysis The patient had 1 central apnea for an overall Apnea Hypopnea Index of 0.1. The REM Apnea Hypopnea Index was 0. The NREM Apnea Hypopnea Index was 0.1. The patient had a Central Apnea Hypopnea Index of 0.1. There was no evidence of Vadim-Martinez Respirations. Arousals There were 111 total arousals for an arousal index of 14.2. There were 67 spontaneous arousals for an index of 8.6. There was 1 arousal due to respiratory events for an index of 0.1. There were 24 arousals due to periodic limb movements for an index of 3.1.? There were 19 arousals due to isolated limb movements for an index of 2.4. Periodic Limb Movements The patient had 29 isolated limb movements with an index of 3.7. The patient had 32 periodic limb movements with an index of 4.1. Patient had a total of 61 limb movements with a total limb movement index of 7.8. Oximetry Data The patient had an average oxygen saturation of 97.1% in sleep with a minimum oxygen saturation of 91.0% and a maximum oxygen saturation of 100.0%. The patient had 6 oxygen desaturations that were 4% or greater resulting in an Oxygen Desaturation Index of 0.8.? The patient spent 0 minutes of total sleep time with an oxygen saturation below 88%. Snoring Profile Mild snoring was present throughout the study. Cardiac Profile The EKG showed normal sinus rhythm.?No arrhythmias or premature beats were seen. The patient had an average pulse rate of 68.2 bpm with a minimum pulse of rate of 24.0 bpm and a maximum pulse rate of 115.0 bpm.? EEG Profile No signs of seizure activity seen. Assessment and Plan Assessment and Plan (1) Repetitive intrusions of sleep: Code(s): G47.9 - Sleep disorder, unspecified Status: Acute Assessment and Plan: The patient had an overall AHI of 0.1 with desaturation down to 91%. This is not consistent with sleep disordered breathing. 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 The patient also mentioned having constant symptoms of anxiety and depression in her sleep history. She is currently on sertraline 50 mg. I recommend that the patient complete a PHQ-9 and DRE-7 for further evaluation of mood disorders and review the results with her PCP. Uncontrolled mood disorders can contribute to or precipitate insomnia. Insomnia Tips Have a wind down period before bed where there are no electronics, blue light or stimulating activities. 30 minutes- 1 hour. Establish a set wake-up time for yourself, and get up at the set time even if you feel like you need more sleep Do not go to bed until you are ready to fall asleep. Do not go to bed because it is bedtime If you have not gone to sleep after what feels like 20 minutes, get up and leave the bedroom. Meditate, pray, listen to soft music or read a boring book until you feel sleepy.? No work or productive activities. Go back to bedroom and try to fall asleep. Repeat cycle as many times until you fall asleep. The bed is only meant for sleep and sex. Avoid activities like reading, smoking, listening to the radio, using the computer, or watching TV in bed. Try to keep active during the day and avoid napping. No caffeine after noon. Data The data obtained during this sleep study is adequate for interpretation. Certification This sleep study has been reviewed by a board certified sleep medicine physician.
[2024-05-01 12:24] VITALS: BMI 25.0
== END 2024-04-07 08:05 | disposition home or self-care (01) ==
PROVIDERS: PCP Nurse Practitioner Family; Visit Provider Nurse Practitioner Family
DX: G47.9 Sleep disorder, unspecified (principal); G47.61 Periodic limb movement disorder
CPT/HCPCS: 95810

== ENCOUNTER 2024-05-17 15:05 | Outpatient (CLI) | payer OTHER, SELFPAY ==
--- NOTE | ~2024-05-17 | US_ITS ---
EXAMINATION: US OB <= 14 weeks fetus DATE: 05/17/2024 16:46 CDT INDICATION: Positive test COMPARISON: 12/01/2023 TECHNIQUE: Real-time transabdominal obstetric ultrasound. FINDINGS: 6 para 2 Last menstrual period is unknown. The uterus measuring 9.2 x 6.9 x 6.6 cm. A gestational sac is identified within the uterus. A pole is identified, with a crown-rump length that measures 1.34 cm, corresponding to an appro ximate gestational age of 7 weeks and 4 days. cardiac activity is identified at a rate of 157 bpm. The right ovary measures 4.4 x 2.2 x 2.1 cm. The left ovary measures 3.1 x 1.8 x 1.2 cm. Estimated date of delivery by ultrasound is 12/30/2024 IMPRESSION: Single intrauterine gestation with an approximate gestational age of 7 weeks and 4 days, with c ardiac activity identified. Reviewed, dictated and finalized at location A. IMPRESSION: Single intrauterine gestation with an approximate gestational age of 7 weeks an d 4 days, with cardiac activity identified.
--- OUTSIDE RECORDS SUMMARY | 2024-05-17 16:41 | XMS_ITS | Clinical Summary ---
Author Organization [facility] [employer] Address [address] [place] [address] Care Team Providers Care Parts Cleaner Name Role Phone Unavailable Primary Care Provider Unavailabl e Source Comments [facility],non-owned Affiliates and Associated Physician Practices is amultiple site organization consisting of ambulatory clinics and hospital sitesin [place], [place], [place] and [place]. This disclosure is being madepursuant to the Care Everywhere program and may not contain all information available regarding this patient. Last updated 17.[facility] [employer] Medications * Be aware that medications may [...] to complete this topic MENINGOCOCCAL (Group B) VACC INE SHARED DECISION-MAKING Aged Out No longer eligibl e based on patient's age to complete this topic MENINGOCOCCAL GROUPS A/C/Y/W VACCINE Aged Out No longer eligible b ased on patient's age to complete this topic PNEUMOCOCCAL VACCINE Aged Out No long er eligible based on patient's age to complete this topic
--- OUTSIDE RECORDS SUMMARY | 2024-05-17 16:41 | XMS_ITS | Clinical Summary ---
Author Organization [facility] Address [address] [place] [address] Care Team Providers Care Circuit Recorder Name Role Phone Unavailable Primary Care Provider [...]
--- OUTSIDE RECORDS SUMMARY | 2024-05-17 16:41 | XMS_ITS | Encounter Summary ---
Author Organization [facility] Address [address] [place] [address] Care Team Providers Care Supervising Nurse Name Role Phone Unavailable Primary Care Provider Unavailabl e Prior Encounters Date Type Department Care Team Description 03/20/2019 Converted 13x Documents [facility] [address] [place] [phone] <No scans attached> Plan of Treatment Not on file Procedures Procedure Name Priority Date/Time Associated Diagnosis Comments MISSED APPOINTMENT Routine 04/04/2020 2:00 AM REVIEW ASSISTANT Visit Diagnoses Not on file
[2024-05-17 16:43] LABS: Hematocrit 35.8 % (37.0-47.0); Hemoglobin 10.9 g/dL (12.0-15.0); Mean Corpuscular HGB Conc 30.4 g/dl (32-36); Mean Corpuscular Hemoglobin 23.3 pg (26-34); Mean Corpuscular Volume 76.7 fl (80-100); Mean Platelet Volume 9.6 fl (7.4-10.4); Platelet Count Result 346 k/mm3 (150-375); Red Blood Count 4.67 M/mm3 (4.2-5.4); Red Cell Distribution Width 12.8 % (11.5-14.5); White Blood Count 6.2 K/mm3 (4.5-10.0)
[2024-05-18 06:04] LABS: Progesterone 22.1 ng/mL
== END 2024-05-17 15:06 | disposition home or self-care (01) ==
LOC: ANHIMG 15:07
PROVIDERS: Visit Provider Obstetrics & Gynecology
DX: N91.2 Amenorrhea, unspecified (principal); O09.299 Supervision of pregnancy with other poor reproductive or obstetric history, unspecified trimester; Z3A.01 Less than 8 weeks gestation of pregnancy
CPT/HCPCS: 36415; 76801; 84144; 84702; 85027

== ENCOUNTER 2024-07-19 07:19 | Outpatient (CLI) | payer MEDICAID, SELFPAY ==
[2024-07-19 07:55] LABS: Hemoglobin 10.4 g/dL (12.0-15.0); Mean Corpuscular HGB Conc 30.6 g/dl (32-36); Mean Corpuscular Hemoglobin 23.1 pg (26-34); Mean Corpuscular Volume 75.6 fl (80-100); Mean Platelet Volume 9.8 fl (7.4-10.4); Platelet Count Result 249 k/mm3 (150-375); Red Cell Distribution Width 12.8 % (11.5-14.5); White Blood Count 5.2 K/mm3 (4.5-10.0)
[2024-07-19 08:48] LABS: HIV 1/2 Ab P24 Ag Result Negative (Negative)
[2024-07-19 09:01] LABS: Syphilis IgG/IgM Antibody Negative (Negative)
[2024-07-19 09:28] LABS: Hepatitis B Surface Anti Res Positive; Hepatitis C Virus Antibody Negative (Negative)
[2024-07-19 10:54] LABS: Rubella IgG Antibody > 110.0 IU/ML
[2024-07-20 23:09] LABS: Hematocrit 35.4 % (35.0-45.0); Hemoglobin 10.4 g/dL (11.7-15.5); MCH 23.1 pg (27.0-33.0); MCV 78.7 fL (80.0-100.0); RDW 13.1 % (11.0-15.0)
== END 2024-07-19 07:20 | disposition home or self-care (01) ==
PROVIDERS: PCP Nurse Practitioner Family; Visit Provider Nurse Practitioner Family
DX: Z34.90 Encounter for supervision of normal pregnancy, unspecified, unspecified trimester (principal); Z3A.00 Weeks of gestation of pregnancy not specified
CPT/HCPCS: 36415; 83021; 84443; 85027; 86593; 86703; 86706; 86762; 86787; 86803; 86850; 86900; 86901; G0432

== ENCOUNTER 2024-08-30 09:15 | Outpatient (CLI) | payer MEDICAID, SELFPAY ==
--- OUTSIDE RECORDS SUMMARY | 2024-08-30 09:23 | XMS_ITS | Clinical Summary ---
Author Organization [facility] Health Address [address] [place] [address] Care Team Providers Care Infrastructure Director Name Role Phone Unavailable Primary Care Provider [...]
--- OUTSIDE RECORDS SUMMARY | 2024-08-30 09:23 | XMS_ITS | Encounter Summary ---
Author Organization [facility] Health Address [address] [place] [address] Care Team Providers Care Diagrammer And Seamer Name Role Phone Unavailable Primary Care Provider Unavailabl e Prior Encounters Date Type Department Care Team Description 03/20/2019 Converted 13x Documents [address] [id number] <No scans attached> Plan of Treatment Not on file Procedures Procedure Name Priority Date/Time Associated Diagnosis Comments MISSED APPOINTMENT Routine 04/04/2020 2:00 AM CATH LAB RADIOLOGY TECHNICIAN Visit Diagnoses Not on file
[2024-08-30 10:16] LABS: Thyroid Stimulating Hormone 0.787 uIU/mL (0.465-4.680)
[2024-08-30 15:49] LABS: Vitamin B12. 268.0 pg/mL (239-931)
[2024-09-02 09:13] LABS: Vitamin B6. 5.1 ng/mL (2.1-21.7)
[2024-09-03 12:58] LABS: Vitamin B1. 7 nmol/L (8-30)
[2024-09-04 08:28] LABS: Methylmalonic Acid. 112 nmol/L (55-335)
[2024-09-04 12:33] LABS: Homocysteine. 8.3 umol/L (< or = 11.0)
== END 2024-08-30 09:16 | disposition home or self-care (01) ==
LOC: ANHLAB 09:16
PROVIDERS: PCP Nurse Practitioner Family; Visit Provider Psychiatry & Neurology Neurology
DX: R51.9 Headache, unspecified (principal); G31.84 Mild cognitive impairment of uncertain or unknown etiology; R42 Dizziness and giddiness; E55.9 Vitamin D deficiency, unspecified
CPT/HCPCS: 36415; 82607; 82652; 82746; 83090; 83921; 84207; 84425; 84443

== ENCOUNTER 2024-10-09 09:50 | Outpatient (CLI) | payer OTHER, SELFPAY ==
--- OUTSIDE RECORDS SUMMARY | 2024-10-09 10:01 | XMS_ITS | Clinical Summary ---
Author Organization [facility] Health Address [address] [place] [address] Care Team Providers Care Crystalizer Tender Name Role Phone Unavailable Primary Care Provider [...]
--- OUTSIDE RECORDS SUMMARY | 2024-10-09 10:01 | XMS_ITS | Encounter Summary ---
Author Organization [facility] Health Address [address] [place] [address] Care Team Providers Care Jumpbasting Armhole Baster Name Role Phone Unavailable Primary Care Provider Unavailabl e Prior Encounters Date Type Department Care Team Description 03/20/2019 Converted 13x Documents [address] [id number] <No scans attached> Plan of Treatment Not on file Procedures Procedure Name Priority Date/Time Associated Diagnosis Comments MISSED APPOINTMENT Routine 04/04/2020 2:00 AM SALES ENABLEMENT CONSULTANT Visit Diagnoses Not on file
[2024-10-09 11:31] LABS: Hematocrit 30.8 % (37.0-47.0); Hemoglobin 9.4 g/dL (12.0-15.0); Mean Corpuscular HGB Conc 30.5 g/dl (32-36); Mean Corpuscular Hemoglobin 23.0 pg (26-34); Mean Corpuscular Volume 75.5 fl (80-100); Platelet Count Result 256 k/mm3 (150-375); Red Blood Count 4.08 M/mm3 (4.2-5.4); White Blood Count 4.9 K/mm3 (4.5-10.0)
[2024-10-09 11:40] LABS: Glucose 1 Hour PP 50gm Dose 154 mg/dL
[2024-10-09 12:21] LABS: HIV 1/2 Ab P24 Ag Result Negative (Negative)
[2024-10-09 17:21] LABS: Syphilis IgG/IgM Antibody Non-Reactive (Nonreactive)
== END 2024-10-09 09:51 | disposition home or self-care (01) ==
PROVIDERS: PCP Nurse Practitioner Family; Visit Provider Nurse Practitioner Family
DX: Z34.90 Encounter for supervision of normal pregnancy, unspecified, unspecified trimester (principal); Z3A.00 Weeks of gestation of pregnancy not specified
CPT/HCPCS: 36415; 82947; 85027; 86593; 86703; G0432

== ENCOUNTER 2024-10-17 19:48 | Outpatient (CLI) | payer OTHER, SELFPAY ==
[2024-10-17] VITALS (10 sets, daily range): BP systolic 93–99; BP diastolic 65–66; PULSE 79–117; TEMP 36.9; O2SAT 99–100
--- NOTE | 2024-10-17 19:48 | PC.NURSE ---
Pt arrives to unit with leaking started at 1900.
--- OUTSIDE RECORDS SUMMARY | 2024-10-17 19:57 | XMS_ITS | Encounter Summary ---
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
--- NOTE | 2024-10-17 20:37 | PC.NURSE ---
Dr. Van returned call, update on pt, leaking started at 1900, negative ROM plus, two contractions in thirty minutes and not feeling any contractions. Orders received to discharge pt with leaking precautions, instructions to keep next scheduled appointment, and when to return to the unit.
--- NOTE | 2024-10-17 20:45 | PC.NURSE ---
Pt discharged with leaking precautions, instructions to keep next scheduled appointment, and when to return to the unit, pt verbalizes understanding.
[2024-10-17 20:51] LABS: OBXCEM ROM Plus Negative (Negative)
== END 2024-10-17 20:45 | disposition home or self-care (01) ==
LOC: ANHOBOP 19:55 → ANHOBPP 20:02
PROVIDERS: Obstetrics & Gynecology; PCP Nurse Practitioner Family; Visit Provider Obstetrics & Gynecology
DX: R42 Dizziness and giddiness (principal)
CPT/HCPCS: 84112; 99199

== ENCOUNTER 2024-10-19 19:29 | Outpatient (CLI) | payer OTHER, SELFPAY ==
[2024-10-19 19:29] VITALS: BP 108/67; PULSE 86
--- OUTSIDE RECORDS SUMMARY | 2024-10-19 19:36 | XMS_ITS | Encounter Summary ---
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
[2024-10-19 20:01] VITALS: BP 108/67; PULSE 86
[2024-10-19 20:16] VITALS: BP 104/66; PULSE 86
[2024-10-19 20:31] VITALS: BP 111/61; PULSE 93
[2024-10-19 20:46] VITALS: BP 98/64; PULSE 87
[2024-10-19 20:57] LABS: OBXCEM ROM Plus Negative (Negative)
--- NOTE | 2024-10-20 03:32 | PM.OBTRLD ---
OB - Triage/Final Diagnosis Visit Information Date of evaluation: 10/19/24 Reason for evaluation: threatened labor Comments/Additional reasons for admission: I have assessed the risk for this patient, Betsy Burch, and determined that she would benefit from observation care. Evaluation Laboratory results: Laboratory Tests 10/19/24 19:29 Membranes Rupture Rom plus negative Vital signs: Vital Signs - 24 hr 10/19/24 19:29 10/19/24 20:01 10/19/24 20:16 Pulse Rate 86 86 86 Blood Pressure 108/67 104/66 Blood Pressure [Left Arm] 108/67 10/19/24 20:31 10/19/24 20:46 Pulse Rate 93 87 Blood Pressure 111/61 98/64 L Blood Pressure [Left Arm]
== END 2024-10-19 21:26 | disposition home or self-care (01) ==
LOC: ANHOBOP 19:36 → ANHOBPP 10-25 06:46
PROVIDERS: Student in an Organized Health Care Education/Training Program; PCP Nurse Practitioner Family; Visit Provider Obstetrics & Gynecology
DX: O42.90 Premature rupture of membranes, unspecified as to length of time between rupture and onset of labor, unspecified weeks of gestation (principal); Z3A.00 Weeks of gestation of pregnancy not specified
CPT/HCPCS: 59025; 84112; 99199

== ENCOUNTER 2024-11-24 07:05 | Outpatient (CLI) | payer OTHER, SELFPAY ==
--- OUTSIDE RECORDS SUMMARY | 2024-11-24 07:08 | XMS_ITS | Clinical Summary ---
Author Organization [facility] Health Address [address] [place] [address] Care Team Providers Care Unit Secretary Name Role Phone Unavailable Primary Care Provider [...]
--- OUTSIDE RECORDS SUMMARY | 2024-11-24 07:08 | XMS_ITS | Encounter Summary ---
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
[2024-11-24 07:34] LABS: Glucose Fasting Gestational 77 mg/dL (>/=95)
[2024-11-24 09:19] LABS: Glucose 1 Hour Gest 130 mg/dL (>/=180)
[2024-11-24 10:08] LABS: Glucose 3 Hour Gest 102 mg/dL (>/=140)
[2024-11-24 11:06] LABS: Glucose 2 Hour Gest 115 mg/dL (>/= 155)
== END 2024-11-24 07:06 | disposition home or self-care (01) ==
LOC: ANHLAB 07:05
PROVIDERS: PCP Nurse Practitioner Family; Visit Provider Nurse Practitioner Family
DX: Z34.92 Encounter for supervision of normal pregnancy, unspecified, second trimester (principal); Z3A.16 16 weeks gestation of pregnancy
CPT/HCPCS: 36415; 82951; 82952

== ENCOUNTER 2024-12-11 08:58 | Outpatient (RCR) | payer OTHER, SELFPAY ==
[2024-11-13 10:32] VITALS: BP 113/73; PULSE 81
[2024-11-20 09:33] VITALS: BP 118/80; PULSE 72
[2024-11-27 10:35] VITALS: BP 113/79; PULSE 80
[2024-12-04 09:39] VITALS: BP 119/85; PULSE 71
--- NOTE | 2024-12-04 10:41 | PC.NURSE ---
Dr. Hobbs called and notified of BPP 08/06 with points off for breathing. GIANNI was 23.95. NST Reactive. Order received for pt. to return wednesday 12/06 for repeat BPP.
[2024-12-06 10:58] VITALS: BP 120/79; PULSE 74
[2024-12-06] MEDS: ACETAMINOPHEN 500 MG TABLET 1000 MG PO (11:09)
--- NOTE | ~2024-12-11 | US_ITS ---
EXAM: US OB BPP wo non-stress - 11/13/2024 9:34 CDT History: 39 years old Female with polyhydramnios;Add GIANNI Comparison: None available. Technique Real time transabdominal obstetric sonographic imaging was performed. Findings A single live intrauterine gestation is identified. Lie: longitudinal Presentation: vertex heart rate: 150 beats per minute Placental position: Anterior, probable second placenta which may be posterior. Difficult to visualize. GIANNI: 18.5 to cm, which is between the 8.3 cm corresponding to 5 th and 24.5 cm corresponding to 95 th percentiles. Biophysical profile: breathing movement: 2 Gross body movement: 2 tone: 2 Qualitative AFV: 2 Total BPP score: 8 of 8. Impression Total biophysical profile score is 8 out of 8. Reviewed, dictated and finalized at location N. Impression Total biophysical profile score is 8 out of 8.
--- NOTE | ~2024-12-11 | US_ITS ---
EXAMINATION: US OB BPP wo non-stress DATE: 12/11/2024 10:26 INDICATION: Polyhydramnios. Third trimester. TECHNIQUE: Real-time pelvic ultrasound was performed. COMPARISON: Ultrasound 12/06/2024. FINDINGS: There is a single living fetus in vertex presentation. The placenta is anterior and posterior. heart rate is 138 beats per minute (bpm). The amniotic fluid index is 24.7 cm, which is high (95th percentile is 24.4 cm). Biophysical profile performed by the technologist: breathing (30 sec sustained breathing in 30 minutes): 2 out of 2 movement (3 gross body movements in 30 minutes): 2 out of 2 tone (one episode of tcbcyot-feywahxkb-survcgp limb movement): 2 out of 2 Amniotic fluid pocket (2 cm): 2 out of 2 Total score: 8 out of 8 IMPRESSION: 1. Single living fetus in vertex presentation. 2. Biophysical profile 8 out of 8. 3. Polyhydramnios. Reviewed, dictated and finalized at location E.
--- NOTE | ~2024-12-11 | US_ITS ---
EXAMINATION: US OB BPP wo non-stress DATE: 11/27/2024 10:24 INDICATION: Polyhydramnios. Third trimester. TECHNIQUE: Real-time pelvic ultrasound was performed. COMPARISON: Ultrasound 11/20/2024 FINDINGS: There is a single living fetus in vertex presentation. The placenta is anterior and posterior. heart rate is 138 beats per minute (bpm). The amniotic fluid index is 23.1 cm, which is normal. Biophysical profile performed by the technologist: breathing (30 sec sustained breathing in 30 minutes): 2 out of 2 movement (3 gross body movements in 30 minutes): 2 out of 2 tone (one episode of itfrewy-pjsvllfpu-rdibmdz limb movement): 2 out of 2 Amniotic fluid pocket (2 cm): 2 out of 2 Total score: 8 out of 8 IMPRESSION: 1. Single living fetus in vertex presentation. 2. Biophysical profile 8 out of 8. Reviewed, dictated and finalized at location E.
--- NOTE | ~2024-12-11 | US_ITS ---
EXAMINATION: US OB BPP wo non-stress DATE: 12/04/2024 10:35 INDICATION: Polyhydramnios TECHNIQUE: Real-time pelvic ultrasound was performed. The interpreting radiologist was not present for the study. COMPARISON: 11/27/2024 FINDINGS: There is a single living fetus in vertex presentation. The placenta is anterior and posterior. cardiac activity and movement are demonstrated. heart rate is 123 beats per minute (bpm). Biophysical profile performed by the technologist: breathing (30 sec sustained breathing in 30 minutes): 0 out of 2 movement (3 gross body movements in 30 minutes): 2 out of 2 tone (one episode of bfpsdbq-hqslhlooo-vrffqbt limb movement): 2 out of 2 Amniotic fluid pocket (2 cm): 2 out of 2 Total score: 6 out of 8 GIANNI equals 24 cm IMPRESSION: 1. Single living intrauterine in vertex presentation with heart rate of with heart rate of [123 bpm. 2. Biophysical profile 6 out of 8. 3. GIANNI equals 24 cm 4. The placenta is anterior and posterior. Reviewed, dictated and finalized at location Q.
--- NOTE | ~2024-12-11 | US_ITS ---
EXAMINATION: US OB BPP wo non-stress DATE: 11/20/2024 10:24 INDICATION: Question GDM. BPP and GIANNI TECHNIQUE: Real-time pelvic ultrasound was performed. The interpreting radiologist was not present for the study. COMPARISON: None. FINDINGS: There is a single living fetus in vertex presentation. The placenta is anterior/posterior. Correlate clinically. cardiac activity and movement are demonstrated. heart rate is 134 beats per minute (bpm). Biophysical profile performed by the technologist: breathing (30 sec sustained breathing in 30 minutes): 2 out of 2 movement (3 gross body movements in 30 minutes): 2 out of 2 tone (one episode of jiwlhko-rtbzjfisj-qqmjawl limb movement): out of 2 Amniotic fluid pocket (2 cm): 2 out of 2 Total score: 8 out of 8 IMPRESSION: 1. Single living intrauterine in vertex presentation with heart rate of with heart rate of 134 [bpm. 2. Biophysical profile 8 out of 8. 3. The placenta is anterior/posterior. Correlate clinically. Possibility of 2 placentas. Correlate clinically. Follow-up is recommended. Reviewed, dictated and finalized at location Q. IMPRESSION: 1. Single living intrauterine in vertex presentation with heart rate of with heart rate of 134 [bpm. 2. Biophysical profile 8 out of 8. 3. The placenta is anterior/posterior. Correlate clinically. Possibility of 2 p lacentas. Correlate clinically. Follow-up is recommended.
--- NOTE | ~2024-12-11 | US_ITS ---
EXAMINATION: US OB BPP wo non-stress DATE: 12/06/2024 10:49 INDICATION: Polyhydramnios GIANNI TECHNIQUE: Real-time ultrasound of the pelvis was performed. The interpreting radiologist was not present for the study. COMPARISON: Ultrasound of the BPP without nonstress 12/04/2024 FINDINGS: There is a single living fetus in vertex presentation. The placenta is anterior and posterior similar to recent prior studies. cardiac activity and movement are noted. heart rate is 129 beats per minute (bpm). The amniotic fluid index is 19.73 cm Biophysical profile performed by the technologist: breathing (30 sec sustained breathing in 30 minutes): 2 out of 2 movement (3 gross body movements in 30 minutes: 2 out of 2 tone (one episode of yebivkf-toalfkbeq-nvtruib limb movement): 2 out of 2 Amniotic fluid pocket (2 cm): 2 out of 2 Total score: 8 out of 8 IMPRESSION: 1. Single living fetus in vertex presentation with heart rate of 129 bpm. 2. GIANNI equals 19.73 cm 3. Biophysical profile 8 out of 8. Reviewed, dictated and finalized at location Q. IMPRESSION: 1. Single living fetus in vertex presentation with heart rate of 129 bpm . 2. GIANNI equals 19.73 cm 3. Biophysical profile 8 out of 8.
[2024-12-11 09:51] VITALS: BP 144/81; PULSE 61
--- NOTE | 2024-12-11 10:38 | PC.NURSE ---
Dr Hobbs Notified of elevated BP's
[2024-12-11 10:56] LABS: Hematocrit 31.2 % (37.0-47.0); Hemoglobin 9.3 g/dL (12.0-15.0); Immature Granulocyte Percent A 0.2 % (0-0.5); Lymphocytes Absolute Auto 1.51 K/mm3 (0.9-3.2); Mean Corpuscular HGB Conc 29.8 g/dl (32-36); Mean Corpuscular Hemoglobin 21.4 pg (26-34); Mean Corpuscular Volume 71.9 fl (80-100); Nucleated Red Blood Cells Absolute Auto 0.000 K/mm3 (0.0-0.012); Nucleated Red Blood Cells Perc 0.0 % (0.0-0.2); Platelet Count Result 193 k/mm3 (150-375); Red Blood Count 4.34 M/mm3 (4.2-5.4); White Blood Count 4.6 K/mm3 (4.5-10.0)
[2024-12-11 11:01] LABS: Add Urine Microscopic? YES; Appearance Urine Clear (Clear); Glucose Urine UA Negative (Negative); Leukocyte Esterase Ur Trace LEU/UL (Negative); Nitrate Urine Negative (Negative); Non Pathogenic Casts 0-2; Specific Grav Ur 1.006 (1.001-1.035)
[2024-12-11 11:18] LABS: Hypochromasia 1+; Microcytosis 1+ (NORMAL); Target Cells Occasional
[2024-12-11 11:19] LABS: Ovalocytes 1+; Schistocytes None Seen
[2024-12-11 11:20] LABS: Alanine Aminotransferase 14 U/L (6-35); Albumin Level 3.3 g/dL (3.5-5.1); Alkaline Phosphatase 233 U/L (38-126); Anion Gap 6 mmol/L (4-12); Aspartate Amino Transferase 24 U/L (14-36); Bilirubin,Total 1.6 mg/dL (0.2-1.3); Blood Urea Nitrogen 5 mg/dL (7-17); Calcium 8.7 mg/dL (8.4-10.2); Carbon Dioxide 23 mmol/L (22-30); Chloride 105 mmol/L (98-107); Estimated Glomerular Filt Rate > 60; Glucose 73 mg/dL (65-110); Potassium 4.4 mmol/L (3.4-5.0); Sodium 134 mmol/L (137-145); Total Protein 7.3 g/dL (6.3-8.2); Uric Acid 5.0 mg/dL (2.5-7.5)
[2024-12-11 11:22] LABS: Total Protein Urine Random 11 mg/dL; Ur Ttl Prot Creatinine Ratio 0.24 mg/mg (0-0.20)
--- NOTE | 2024-12-11 11:44 | PC.NURSE ---
Dr Hobbs notified of lab results and current BP's. Order for 24 hour urine and to make an appt in the office for tomorrow.
== END 2024-12-28 07:19 | disposition other institution (70) ==
LOC: ANHOBOP 08:58
PROVIDERS: PCP Nurse Practitioner Family; Visit Provider Obstetrics & Gynecology
DX: O40.3XX0 Polyhydramnios, third trimester, not applicable or unspecified (principal); Z3A.33 33 weeks gestation of pregnancy; Z3A.34 34 weeks gestation of pregnancy; Z3A.35 35 weeks gestation of pregnancy; Z3A.36 36 weeks gestation of pregnancy; Z3A.37 37 weeks gestation of pregnancy
CPT/HCPCS: 36415; 59025; 76819; 80053; 81001; 82570; 84156; 84550; 85025; A9270; J7050

== ENCOUNTER 2024-12-12 09:07 | Outpatient (RCR) | payer OTHER, SELFPAY ==
[2024-12-12 08:38] VITALS: BMI 26.9
--- OUTSIDE RECORDS SUMMARY | 2024-12-12 09:17 | XMS_ITS | Clinical Summary ---
Author Organization [facility] Address [address] [place] [address] Care Team Providers Care Neuropsychology Division Chief Name Role Phone Unavailable Primary Care Provider Unavailabl e Source Comments [facility],non-owned Affiliates and Associated Physician Practices is amultiple site organization consisting of ambulatory clinics and hospital sitesin [place], [place], [place] and [place]. This disclosure is being madepursuant to the Care Everywhere program and may not contain all information available regarding this patient. Last updated 17.[employer] [facility] Allergies No known active allergies Medications * Be aware that medications may not be up to date on this document. Alwaysverify current medications with the patient. ibuprofen (MOTRIN) 800 MG tablet Take 1 tablet by mouth every 8 hours as needed for Pain 21 tablet 12/19/2017 Active cyclobenzaprine (FLEXERIL) 10 MG tablet Take 1 tablet by mouth 3 times daily as needed for Muscle Spasms 12 tablet 12/19/2017 Active Active Problems Patient Care Coordination No te Formatting of this note migh t be different from the original. Please see care plan in problem list. Problem Noted Date Diagnosed Date renal anomaly, single gestation 11/21/2024 Overview (11/21/2024): Left Pelvic Kidney Depression screen 10/23/2024 Overview (10/23/2024): 10/23/2024 Jolynn Bergeron was screened for depression using the [place] Depression Scale (EPDS) at her [facility] initial evaluation on 10/23/2024. Her initial score at baseline was 0. Based off of her score of 0, Jolynn does not warrant follow up. Patient will continue to be screened throughout , at intervals no closer than two weeks, for continued surveillance and early identification of depression until delivery. Patient reports mental health history. Diagnosis includes anxiety. abnormality in 09/25/2024 Overview (12/11/2024): Images from the original note were not included. ALF PATIENT--PLEASE CALL [phone] (ex 2) IF TRIAGED OR ADMITTED Care Provider: Dr. Hobbs [facility] [place] consultants involved: RN- Tanya; M- Dr. Oro; Search Engine Optimization Analyst- Dr. 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 Planned surveillance: Initial ALF 10/23. Follow up ultrasound in 4 weeks for growth and GIANNI (at [facility]). testing as clinically indicated. Continue routine OB care Delivery location: [facility] Delivery mode: per usual obstetric indications Desired Delivery GA: per usual obstetric indications follow up: per Nephrology: We discussed the need for an initial ultrasound at about 2 weeks after delivery. We will see the patient in the outpatient center and get an ultrasound at that time. Middle School Humanities Teacher: Dr. Barber Certified Ski Patroller Concerns: 10/23/2024-Patient with history of anxiety-no medications Care plan based on evaluation and is subject to change based on assessment. See Images or Cardiac under Chart Review for US/ ECHO/ MRI reports. Second 09/09/2018 Encounter for ultrasound 09/09/2018 Abnormal ultrasound 09/09/2018 Estimated Date of Delivery Comme nts Yes 12/30/2024 Based on Ultraso und Encounters Date Type Department Care Team Description 11/21/2024 11:07 AM CDT - 11/21/2024 11:59 PM CDT Hospital Encounter [facility] [address] [place] [address] Arturo Espinoza MD Discharge Disposition: Home or Self Care 10/23/2024 8:45 AM CDT - 10/23/2024 11:59 PM CDT Hospital Encounter [facility] [place] [address] [place] [id number] Courtney Oro MD Discharge Disposition: Home or Self Care 10/23/2024 Telephone [facility] [place] [address] [place] [id number] Courtney Miller Update 10/20/2024 Telephone [facility] [address] [address] Melanie Madsen, NELLY Reminder Call 09/25/[address] [address] Courtney Miller Referral 09/12/2024 7:25 AM CDT - 09/12/2024 11:59 PM CDT Hospital Encounter [facility] [address] [place], [place] [id number] Arturo Espinoza MD Discharge Disposition: Home or Self Care from Last 3 Months Social History Tobacco Use Types Packs/Day Years Used Date Smoking Tobacco: Never Alcohol Use Standard Drinks/Week Comments Yes 0 (1 standard drink = 0.6 oz pur e alcohol) socially Hunger Vital Sign Answer Date Recorded Within the past 12 months, y ou worried that your food would run out before you got the money to buy more. Often true Within the past 12 months, t he food you bought just didn't last and you didn't have money to get more. Sometimes true [place] Depression Scale Answer Date Recorded [place] Depression Scale Total 0 10/23/2024 The thought of harming myself has occurred to me . Never 10/23/2024 Estimated Date of Delivery Comme nts Yes 12/30/2024 Based on Ultraso und Sex and Gender Information Value Date Recorded Sex Assigned at Not on file Legal Sex Female 12:23 PM CDT Gender Identity Not on file Sexual Orientation Not on file Last Filed Vital Signs Vital Sign Reading Time Taken Comments Blood Pressure 118/78 10/23/2024 9:33 AM CDT Pulse 90 10/23/2024 9:33 AM CDT Temperature 36.6 C (97.8 F) 12/19/2017 12:35 PM CDT Respiratory Rate 18 12/19/2017 12:35 PM CDT Oxygen Saturation 100% 12/19/2017 12:35 PM CDT Inhaled Oxygen Concentration - - Weight 76.6 kg (168 lb 14 oz) 10/23/2024 9:33 AM CDT Height 170.2 cm (5' 7) 12/19/2017 12:35 PM CDT Body Mass Index 26.45 12/19/2017 12:35 PM CDT Plan of Treatment Health Maintenance Due Date Last Done Comments HIV SCREENING 2002 HEPATITIS C SCREENING 02/13/2005 DTAP/TDAP/TD VACCINES (1 - Tdap) 2006 HEPATITIS B VACCINE (1 of 3 - 19+ 3-dose series) 2006 PAP SMEAR 02/19/2008 HPV VACCINE (1 - 3-dose SCDM series) 2014 OB-ONE HOUR GLUCOSE 09/23/2024 OB-TDAP CURRENT 09/30/2024 10/18/2018 OB-RHOGAM INJECTION 10/07/2024 COVID-19 VACCINE (2 - 2024-2 6 season) 2024 11/09/2022 INFLUENZA VACCINE (#1) 2024 , 12/28/2022 OB-GROUP B STREP SCREEN 11/25/2024 ZOSTER VACCINE (1 of 2) 2037 DEPRESSION SCREENING Completed 10/23/2024 HIB VACCINE Aged Out No longer eligi ble based on patient's age to complete this topic MENINGOCOCCAL (Group B) VACCINE SHARED DECISION-MAKING Aged Out No longer eligible based on patient's age to complete this topic MENINGOCOCCAL GROUPS A/C/Y/W VACCINE Aged Out No longer eligible b ased on patient's age to complete this topic PNEUMOCOCCAL VACCINE Aged Out No long er eligible based on patient's age to complete this topic Respiratory Syncytial Virus (RSV) Vaccine Pt: or over 60 yrs (No Doses Required) Completed Procedures Procedure Name Priority Date/Time Associated Diagnosis Comments SONOGRAM - COMPLETE Routine 11/21/2024 1 1:19 AM CDT abnormality affecting management of mother, single or unspecified fetus (HCC) Multigravida of advanced maternal age in second trimester (HCC) Encounter for ultrasound to assess growth (HCC) Second (HCC) SONOGRAM - COMPLETE Routine 10/23/2024 9 :19 AM CDT renal anomaly, single gestation (HCC) Encounter for ultrasound (HCC) SONOGRAM - COMPLETE Routine 09/12/2024 7 :35 AM CDT Encounter for anatomic survey (HCC) Multigravida of advanced maternal age in second trimester (HCC) from Last 3 Months Results * Sonogram - Complete (11/21/2024 11:19 AM CDT) Only the most recent of3 resultswithin the time period is included. Linked Results Indication ======== Malformation of placenta, unspecified Bilobed Placenta renal anomaly, other, unspecified Left Pelvic Kidney Advanced maternal age (AMA), multigravida Encounter for ultrasound to assess growth History ====== OB History 5. Para 2 [id number] 1. live 2006. Gest. age 39 w + 0 d. Weight 3,175 g. Sex of child: male. Details: 2. live 2018. Gest. age 39 w + 0 d. Weight 3,175 g. Sex of child: female. Details: 3. miscarriage 2022 4. miscarriage 2023 Lab Tests Test Date Result Declined Maternal Assessment Physical Exam Height 170 cm, 5 ft 7 in. Initial weight 73 kg, 161 lb. Initial BMI 25.22 kg/m Method ====== Transabdominal ultrasound. View: Good view ========= Herman . Number of fetuses: 1 Dating ====== Date Details Gest. age BOBBI Stated BOBBI 34 w + 3 d 12/30/2024 Previous U/S 05/17/2024 GA, GA 7 w + 4 d 34 w + 3 d 12/30/2024 U/S 11/21/2024 based upon AC, BPD, Femur, HC 35 w + 6 d 12/20/2024 Assigned dating based on stated BOBBI, selected on 08/15/2024 34 w + 3 d 12/30/2024 General Evaluation Cardiac activity present. FHR 133 bpm. Presentation: cephalic Placenta: Placental site: anterior. Accessory/succent uriate lobe. Posterior Amniotic fluid: Amount of AF: mildly increased. MVP 8.1 cm. GIANNI 24.5 cm. Q1 8.1 cm, Q2 7.1 cm, Q3 4.1 cm, Q4 5.2 cm Biometry BPD 88.2 mm 35w 5d 82% Hadlock HC 327.2 mm 37w 1d 81% Hadlock AC 316.0 mm 35w 4d 83% Hadlock Femur 68.2 mm 35w 0d 58% Hadlock Humerus 58.0 mm 33w 4d 43% Henrique HC / AC 1.04 Weight Calculation: EFW 2,714 g 77% Hadlock EFW (lb,oz) 6 lb 0 oz EFW by Hadlock ([id number]) appropriate Growth Overview Exam date GA BPD (mm) HC (mm) AC (mm) FL (mm) HL (mm) EFW (g) 08/15/2024 20w 3d 50.9 85% 183.5 55% 168.2 85% 34.5 57% 33.4 81% 416 88% 09/12/2024 24w 3d 62.6 76% 232.1 62% 207.6 70% 45.4 56% 43.6 87% 783 75% 10/23/2024 30w 2d 79.4 84% 290.6 65% 274.3 80% 60.4 68% 54.5 85% 1790 79% 11/21/2024 34w 3d 88.2 82% 327.2 81% 316 83% 68.2 58% 58 43% 2714 77% Anatomy The following structures appear abnormal: Abdomen Left kidney: Pelvic Kidney. The following structures appear normal: Abdomen Stomach. Right kidney. Bladder. 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 Biophysical profile (BPP) is normal (10/06) Follow-up ======== Considering AMA + GIANNI + ?GDM, start weekly NST+BPP by next week If GDM not controlled well by diet, increase NST to 2x-weekly Follow-up U/S for growth in 4 weeks Coding ====== Diagnoses O09.523: Supervision of elderly multigravida O35.EXX0: Maternal care for other (suspected) abnormality and damage, genitourinary anomalies O43.103: Malformation of placenta, unspecified Procedures 36967: [place] [address]: Biophysical Profile W/O NST [employer] PACS Anatomical Region Laterality Modality Other 11/21/2024 11:1 9 AM CDT Efrem Lindquist MD [facility] ORDERABLES Edited Result - Final from Last 3 Months Insurance [facility] [employer]
--- OUTSIDE RECORDS SUMMARY | 2024-12-12 09:17 | XMS_ITS | Clinical Summary ---
Author Organization [facility] Health Address [address] [place] [address] Care Team Providers Care Biologics Specialist Name Role Phone Unavailable Primary Care Provider [...]
--- OUTSIDE RECORDS SUMMARY | 2024-12-12 09:17 | XMS_ITS | Encounter Summary ---
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
[2024-12-12 10:06] LABS: Specific Gravity Ur 1.004; Total Volume 24 Hour Urine 3900 ml
[2024-12-12 10:36] LABS: Total Protein Urine 24 Hr 468 mg/24hr (28-141); Total Protein Urine Random 12 mg/dL
[2024-12-12 11:29] LABS: Creatinine Clearance Urine 85.7 ml/min (75-125); Serum Creat 0.69
--- OUTSIDE RECORDS SUMMARY | 2024-12-14 09:51 | XMS_ITS | Clinical Summary ---
Author Organization [facility] Health Address [address] [place] [address] Care Team Providers Care Automatic Glove Former Name Role Phone Unavailable Primary Care Provider [...]
--- OUTSIDE RECORDS SUMMARY | 2024-12-14 09:51 | XMS_ITS | Encounter Summary ---
Author Organization [facility] Health Address [address] [place] [address] Care Team Providers Care Reel Man Name Role Phone Unavailable Primary Care Provider Unavailabl e Prior Encounters Date Type Department Care Team Description 03/20/2019 Converted 13x Documents [address] [address] <No scans attached> Plan of Treatment Not on file Procedures Procedure Name Priority Date/Time Associated Diagnosis Comments MISSED APPOINTMENT Routine 04/04/2020 2:00 AM ARTIFICIAL PEARL MAKER Visit Diagnoses Not on file
--- OUTSIDE RECORDS SUMMARY | 2024-12-14 09:51 | XMS_ITS | Clinical Summary ---
Author Organization [facility] [employer] Address [address] [place] [address] Care Team Providers Care Brake Lining Finisher Asbestos Name Role Phone Unavailable Primary Care Provider Unavailabl e Source Comments [facility] [employer],non-owned Affiliates and Associated Physician Practices is amultiple site organization consisting of ambulatory clinics and hospital sitesin [place], [place], [place] and [place]. This disclosure is being madepursuant to the Care Everywhere program and may not contain all information available regarding this patient. Last updated 17.[employer] Allergies No known active allergies Medications * [...] Kidney Depression screen 10/23/2024 Overview (10/23/2024): 10/23/2024 Betsy Bergeron was screened for depression using the [place] Depression Scale (EPDS) at her [facility] initial evaluation on 10/23/2024. Her initial score at baseline was 0. Based off of her score of 0, Betsy does not warrant follow up. Patient will continue to be screened throughout , at intervals no closer than two weeks, for continued surveillance and early identification of depression until delivery. Patient reports mental health history. Diagnosis includes anxiety. abnormality in 09/25/2024 Overview (12/11/2024): Images from the original note were not included. LONG TERM PATIENT--PLEASE CALL [phone] (ex 2) IF TRIAGED OR ADMITTED Care Provider: Dr. Hobbs [place] [facility] Care [place] consultants involved: RN- Tanya; M- Dr. Oro; Sexual Assault Counsellor- Dr. 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 Planned surveillance: Initial LONG TERM 10/23. Follow up ultrasound in 4 weeks for growth and GIANNI (at [facility]). testing as clinically indicated. Continue routine OB care Delivery location: [facility] Delivery mode: per usual obstetric indications Desired Delivery GA: per usual obstetric indications follow up: per Nephrology: We discussed the need for an initial ultrasound at about 2 weeks after delivery. We will see the patient in the outpatient center and get an ultrasound at that time. License Registration Examiner: Dr. Barber Sign Shop Supervisor Concerns: 10/23/2024-Patient with history of anxiety-no medications [...] - 11/21/2024 11:59 PM CDT Hospital Encounter [facility] Care [address] [place] [address] Arturo Espinoza MD Discharge Disposition: Home or Self Care 10/23/2024 8:45 AM CDT - 10/23/2024 11:59 PM CDT Hospital Encounter [address] [address] Courtney Oro MD Discharge Disposition: Home or Self Care 10/23/[address] [address] Courtney Miller A Update 10/20/[address] [address] Melanie Madsen, NELLY Reminder Call 09/25/[address] [address] Courtney Miller Referral from Last 3 Months Social History Tobacco [...] have money to get more. Sometimes true [place] Depression Scale Answer Date Recorded [place] Depression Scale Total 0 10/23/2024 The thought [...] season) 2024 11/09/2022 INFLUENZA VACCINE (#1) 2024 4, 12/28/2022 OB-GROUP B STREP SCREEN 11/25/2024 ZOSTER VACCINE (1 of 2) 2037 DEPRESSION SCREENING Completed HIB VACCINE Aged Out No longer eligi [...] single gestation (HCC) Encounter for ultrasound (HCC) from Last 3 Months Results * Sonogram - Complete (11/21/2024 11:19 AM CDT) Only the most recent of2 resultswithin the time period is included. Linked Results Indication ======== Malformation of placenta, unspecified Bilobed Placenta renal anomaly, other, unspecified Left Pelvic Kidney Advanced maternal age (AMA), multigravida Encounter for ultrasound to assess growth History ====== OB History 5. Para 2 [id number] 1. live 2006. Gest. 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
== END 2024-12-12 12:00 | disposition home or self-care (01) ==
LOC: ANHOBOP 09:07
PROVIDERS: PCP Nurse Practitioner Family; Visit Provider Obstetrics & Gynecology
DX: O40.3XX0 Polyhydramnios, third trimester, not applicable or unspecified (principal); Z3A.37 37 weeks gestation of pregnancy
CPT/HCPCS: 99199; 81050; 82575; 84156

== ENCOUNTER 2024-12-12 18:38 | Inpatient (IN) | payer OTHER, SELFPAY ==
[2024-12-12] VITALS (74 sets, daily range): BP systolic 125–160; BP diastolic 75–104; PULSE 59–141; TEMP 36.7; O2SAT 85–100; BMI 26.9
--- OUTSIDE RECORDS SUMMARY | 2024-12-12 18:43 | XMS_ITS | Clinical Summary ---
Author Organization [facility] Health Address [address] [place] [address] Care Team Providers Care Kitchen Lead Name Role Phone Unavailable Primary Care Provider [...]
--- OUTSIDE RECORDS SUMMARY | 2024-12-12 18:43 | XMS_ITS | Encounter Summary ---
Author Organization [facility] Health Address [address] [place] [address] Care Team Providers Care Affiliate Marketing Specialist Name Role Phone Unavailable Primary Care Provider Unavailabl e Prior Encounters Date Type Department Care Team Description 03/20/2019 Converted 13x Documents [address] [id number] <No scans attached> Plan of Treatment Not on file Procedures Procedure Name Priority Date/Time Associated Diagnosis Comments MISSED APPOINTMENT Routine 04/04/2020 2:00 AM [employer] Visit Diagnoses Not on file
[2024-12-12 19:40] LABS: Hematocrit 29.2 % (37.0-47.0); Hemoglobin 8.8 g/dL (12.0-15.0); Immature Granulocyte Percent A 0.2 % (0-0.5); Immature Platelet Fraction Pct 10.5 % (0.9-11.2); Lymphocytes Absolute Auto 1.65 K/mm3 (0.9-3.2); Mean Corpuscular HGB Conc 30.1 g/dl (32-36); Mean Corpuscular Hemoglobin 21.4 pg (26-34); Mean Corpuscular Volume 71.0 fl (80-100); Nucleated Red Blood Cells Absolute Auto 0.000 K/mm3 (0.0-0.012); Nucleated Red Blood Cells Perc 0.0 % (0.0-0.2); Platelet Count Result 189 k/mm3 (150-375); Red Blood Count 4.11 M/mm3 (4.2-5.4); White Blood Count 5.3 K/mm3 (4.5-10.0)
[2024-12-12] MEDS: AMPICILLIN SODIUM 2 GM in SODIUM CHLORIDE 0.9% IV 100 ML 200 ML IVPB (19:50)
[2024-12-12] MEDS: LACTATED RINGERS 1,000 ML 125 ML IV CONT (19:50)
--- NOTE | 2024-12-12 19:58 | LDADM ---
This patient, Betsy Burch, was admitted to Labor/Delivery/Recovery 105 on 12/12/24 at 18:38. Plans for labor, pain management and were discussed with patient. Patient/family oriented to hospital policies and general routines including ID bracelet, bed and alarms, visiting hours, pain management, procedures, bathroom and other care routines, personal items, smoking policy, room service/diet and guest tray routines, security routines, and visiting hours. Patient/Family are encouraged to report perceived risks to care and to ask questions if they do not understand what they are told or what they should do. See OBIX for further documentation.
[2024-12-12 20:21] LABS: Hypochromasia 1+; Microcytosis 1+ (NORMAL)
[2024-12-12 20:22] LABS: Ovalocytes Occasional; Schistocytes None Seen
--- NOTE | 2024-12-12 20:30 | WPDANESEPP ---
Anes - Eval Pre Procedure Procedure: LABOR PAIN MANAGEMENT Date/Time: 12/12/24 20:30 Surgeon: ODALIS Preop Diagnosis: PAIN DURING LABOR Pre Op Diagnosis: IOL Patient Data Age: 39 Gender: F Height: 1.7 m Weight: 78 kg Last Vital Signs Pulse 62 12/12/24 20:15 BP 160/85 H 12/12/24 20:15 Pulse Ox 96 12/12/24 20:25 O2 Del Method Room Air 12/12/24 19:58 Allergies Allergy/AdvReac Type Severity Reaction Status Date / Time No Known Allergies Allergy Verified 12/12/24 20:15 Home Medications ?Medication ?Instructions ?Recorded ?Confirmed ?Type ondansetron HCl 4 mg tablet 4 mg PO Q6H PRN nausea and 09/13/24 12/12/24 Rx vomiting #20 tabs pantoprazole 20 mg tablet,delayed 20 mg PO QAM #30 tabs 11/22/24 12/12/24 Rx release Laboratory Tests 12/12/24 19:32 WBC 5.3 K/mm3 (4.5-10.0) RBC 4.11 L M/mm3 (4.2-5.4) Hgb 8.8 L g/dL (12.0-15.0) Hct 29.2 L % (37.0-47.0) MCV 71.0 L fl (80-100) MCH 21.4 L pg (26-34) MCHC 30.1 L g/dl (32-36) RDW 13.8 % (11.5-14.5) Plt Count 189 k/mm3 (150-375) MPV 12.8 H fl (7.4-10.4) Immature Gran % (Auto) 0.2 % (0-0.5) Neut % (Auto) 56.7 % (45.5-73.1) Lymph % (Auto) 31.1 % (18.3-44.2) [place] % (Auto) 10.6 H % (2.6-8.5) Eos % (Auto) 0.8 % (0-4.4) Baso % (Auto) 0.6 % (0.2-1.2) Lymph # (Auto) 1.65 K/mm3 (0.9-3.2) [place] # (Auto) 0.6 K/mm3 (0.1-0.6) Eos # (Auto) 0.0 K/mm3 (0-0.3) Baso # (Auto) 0.0 K/mm3 (0.0-0.1) Abs Immat Gran (auto) 0.01 K/mm3 (0.00-0.031) Absolute Neuts (auto) 3.0 K/mm3 (1.3-6.7) Absolute Nucleated RBC 0.000 K/mm3 (0.0-0.012) Band Neutrophils % Not Reportable Nucleated RBC % 0.0 % (0.0-0.2) Platelet Estimate Adequate (Adequate) % Immature Plt Fraction 10.5 % (0.9-11.2) Hypochromasia 1+ Microcytosis 1+ (NORMAL) Ovalocytes Occasional Schistocytes None seen Hep Bs Antigen Pending Blood Type B Positive Antibody Screen Negative Patient hx anesthesia problems: none Family hx anesthesia problems: none Results Review: All pre-operative results and documents have been reviewed as part of the pre-operative evaluation. [facility] Past Medical History Medical History Migraines Dizziness History of miscarriage Periodic limb movement Sleep difficulties Vaginitis Pain in scapula Anemia Asthma Family History Family History Father No problems noted. Other Hypertension Social History Social History Smoking status: Never smoker Second hand tobacco smoke exposure: No Alcohol intake: current Alcohol use details: occasional Substance use: never Substance use type: does not use Do You Feel Safe in your Home?: Yes Lack of Transportation: No Lack of Food: Sometimes True Current Housing: I Have Housing Concerned About Future Housing: No Difficulty Paying Gas/Electric Bills: No Difficulty Paying for Meds: No Currently Unemployed: No Education: High School Diploma/GED Difficulty w/ Childcare or Family Care: No Living arrangements: with family Occupation/Education: occupation Gender identity (if verbalized by the patient): Female Sexual Orientation (if Verbalized by the Patient): Straight or Heterosexual Spiritual care concerns: No Agree to blood products: Yes Exam Day of Procedure 12/12/24 20:30
[2024-12-12 20:31] LABS: Syphilis IgG/IgM Antibody Non-Reactive (Nonreactive)
[2024-12-12 21:17] LABS: Hepatitis B Surface Antigen Negative (Negative)
[2024-12-12] MEDS: FAMOTIDINE 20 MG/2 ML VIAL IV PUSH (21:45)
[2024-12-12] MEDS: LABETALOL HCL 100 MG TABLET 200 MG PO (21:46)
[2024-12-12] MEDS: ONDANSETRON INJ 4 MG/2 ML VIAL IV PUSH (23:30)
[2024-12-12] MEDS: AMPICILLIN SODIUM 1 GM in SODIUM CHLORIDE 0.9% IV 50 ML 100 ML IVPB (23:39)
[2024-12-13] VITALS (202 sets, daily range): BP systolic 94–158; BP diastolic 29–141; PULSE 40–114; RESP 12–22; TEMP 36–36.8; O2SAT 85–100
[2024-12-13] MEDS: AMPICILLIN SODIUM 1 GM in SODIUM CHLORIDE 0.9% IV 50 ML 100 ML IVPB ×3 (03:31→12:27)
[2024-12-13] MEDS: LABETALOL HCL 100 MG TABLET 200 MG PO (09:49)
--- NOTE | 2024-12-13 10:13 | P.HP_ITS ---
H&P: HPI History of Present Illness Date/Time: 12/13/24 10:13 Chief Complaint: Induction of labor Narrative: She presented for [facility] for pre-eclampsia without severe features. She denies scotomata or RUQ pain. She has mild headache. She ruled in today. Proteinuria present. 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 Review of Systems Review of Systems: All systems reviewed & are unremarkable except as noted in HPI and below Constitutional: Constitutional: Reports no additional constitutional complaint s and Denies headache(s) Eyes: Eyes: Denies spots in vision ENT: Reports system reviewed and no additional complaints, except as documented and Denies headache(s) Cardiovascular: Cardiovascular: Denies chest pain and Denies dyspnea Respiratory: Respiratory: Denies dyspnea Gastrointestinal: Gastrointestinal: Reports no additional gastrointestinal complaints Genitourinary: Genitourinary: Reports amenorrhea Musculoskeletal: Musculoskeletal: Reports no additional musculoskeletal complaints Integumentary/Breasts: Skin/Breast: Denies breast mass and Denies rash Neurologic: Denies headache(s) Psychiatric: Psychiatric: Reports no additional psychiatric complaints PMFSH Past Medical History Medical History Migraines Dizziness History of miscarriage Periodic limb movement Sleep difficulties Vaginitis Pain in scapula Anemia Asthma Family History Family History Father No problems noted. Other Hypertension Social History Social History Smoking status: Never smoker Second hand tobacco smoke exposure: No Alcohol intake: current Alcohol use details: occasional Substance use: never Substance use type: does not use Do You Feel Safe in your Home?: Yes Lack of Transportation: No Lack of Food: Never True Current Housing: I Have Housing Concerned About Future Housing: No Difficulty Paying Gas/Electric Bills: No Difficulty Paying for Meds: No Currently Unemployed: No Education: High School Diploma/GED Difficulty w/ Childcare or Family Care: No Living arrangements: with family Occupation/Education: occupation Gender identity (if verbalized by the patient): Female Sexual Orientation (if Verbalized by the Patient): Straight or Heterosexual Spiritual care concerns: No Agree to blood products: Yes Meds Home Medications and Allergies Home Medications ?Medication ?Instructions ?Recorded ?Confirmed ?Type pantoprazole 20 mg tablet,delayed 20 mg PO QAM #30 tab s 11/22/24 12/18/24 Rx release ferrous sulfate 325 mg (65 mg 325 mg PO DAILY #30 tabs 12/15/24 12/18/24 Rx iron) tablet ibuprofen 600 mg tablet 600 mg PO Q6H PRN cramps #30 tabs 12/15/24 12/18/24 Rx amoxicillin 875 mg-potassium 1 tablet PO BID 7 days #1 4 tabs 12/22/24 Rx clavulanate 125 mg tablet Allergies Allergy/AdvReac Type Severity Reaction Status Date / Time No Known Allergies Allergy Verified 12/18/24 11:26 Vital Signs Vital Signs - 24 hr 12/12/24 18:57 12/12/24 19:02 12/12/24 19:07 Temperature Pulse Rate Blood Pressure Pulse Oximetry 100 100 100 Oxygen Delivery 12/12/24 19:12 12/12/24 19:17 12/12/24 19:19 Temperature Pulse Rate Blood Pressure Pulse Oximetry 100 100 98 Oxygen Delivery 12/12/24 19:24 12/12/24 19:30 12/12/24 19:35 Temperature Pulse Rate Blood Pressure Pulse Oximetry 100 100 100 Oxygen Delivery 12/12/24 19:40 12/12/24 19:45 12/12/24 19:46 Temperature Pulse Rate Blood Pressure Pulse Oximetry 100 100 100 Oxygen Delivery 12/12/24 19:51 12/12/24 19:53 12/12/24 19:55 Temperature Pulse Rate 65 64 Blood Pressure 155/95 H Pulse Oximetry 100 Oxygen Delivery 12/12/24 19:56 12/12/24 19:58 12/12/24 20:00 Temperature Pulse Rate 65 Blood Pressure 143/76 H Pulse Oximetry 100 Oxygen Delivery Room Air 12/12/24 20:01 12/12/24 20:06 12/12/24 20:11 Temperature Pulse Rate Blood Pressure Pulse Oximetry 100 100 100 Oxygen Delivery 12/12/24 20:15 12/12/24 20:16 12/12/24 20:24 Temperature Pulse Rate 62 Blood Pressure 160/85 H Pulse Oximetry 100 92 Oxygen Delivery 12/12/24 20:24 12/12/24 20:25 12/12/24 20:30 Temperature Pulse Rate 72 Blood Pressure 129/101 H Pulse Oximetry 96 96 100 Oxygen Delivery 12/12/24 20:35 12/12/24 20:40 12/12/24 20:45 Temperature Pulse Rate 63 Blood Pressure 144/96 H Pulse Oximetry 100 98 100 Oxygen Delivery 12/12/24 20:50 12/12/24 20:55 12/12/24 21:00 Temperature 98.1 F Pulse Rate 62 Blood Pressure 149/101 H Pulse Oximetry 100 100 100 Oxygen Delivery 12/12/24 21:05 12/12/24 21:07 12/12/24 21:07 Temperature Pulse Rate Blood Pressure Pulse Oximetry 100 99 99 Oxygen Delivery 12/12/24 21:10 12/12/24 21:15 12/12/24 21:20 Temperature Pulse Rate 72 Blood Pressure 139/98 H Pulse Oximetry 100 100 100 Oxygen Delivery 12/12/24 21:25 12/12/24 21:28 12/12/24 21:30 Temperature Pulse Rate 65 Blood Pressure 125/104 H Pulse Oximetry 100 97 Oxygen Delivery 12/12/24 21:33 12/12/24 21:35 12/12/24 21:40 Temperature Pulse Rate Blood Pressure Pulse Oximetry 97 100 100 Oxygen Delivery 12/12/24 21:40 12/12/24 21:40 12/12/24 21:43 Temperature Pulse Rate Blood Pressure Pulse Oximetry 100 100 99 Oxygen Delivery 12/12/24 21:45 12/12/24 21:46 12/12/24 21:48 Temperature Pulse Rate 59 L 61 Blood Pressure 148/75 H Pulse Oximetry 100 Oxygen Delivery 12/12/24 21:50 12/12/24 21:51 12/12/24 21:56 Temperature Pulse Rate Blood Pressure Pulse Oximetry 100 100 99 Oxygen Delivery 12/12/24 22:00 12/12/24 22:01 12/12/24 22:06 Temperature Pulse Rate 66 Blood Pressure 148/83 H Pulse Oximetry 99 85 L Oxygen Delivery 12/12/24 22:11 12/12/24 22:23 12/12/24 22:28 Temperature Pulse Rate Blood Pressure Pulse Oximetry 99 100 99 Oxygen Delivery 12/12/24 22:30 12/12/24 22:33 12/12/24 22:38 Temperature Pulse Rate 71 Blood Pressure 134/79 Pulse Oximetry 99 99 Oxygen Delivery 12/12/24 22:38 12/12/24 22:43 12/12/24 22:48 Temperature Pulse Rate Blood Pressure Pulse Oximetry 100 99 100 Oxygen Delivery 12/12/24 22:51 12/12/24 23:00 12/12/24 23:03 Temperature Pulse Rate 66 Blood Pressure 157/92 H Pulse Oximetry 100 100 Oxygen Delivery 12/12/24 23:05 12/12/24 23:06 12/12/24 23:11 Temperature Pulse Rate Blood Pressure Pulse Oximetry 100 100 99 Oxygen Delivery 12/12/24 23:16 12/12/24 23:21 12/12/24 23:25 Temperature Pulse Rate Blood Pressure Pulse Oximetry 99 99 90 Oxygen Delivery 12/12/24 23:30 12/12/24 23:43 12/12/24 23:48 Temperature 98.1 F Pulse Rate Blood Pressure Pulse Oximetry 100 100 Oxygen Delivery 12/12/24 23:53 12/12/24 23:56 12/13/24 00:01 Temperature Pulse Rate Blood Pressure Pulse Oximetry 98 100 100 Oxygen Delivery 12/13/24 00:02 12/13/24 00:06 12/13/24 00:11 Temperature Pulse Rate 63 Blood Pressure 123/74 Pulse Oximetry 98 99 Oxygen Delivery 12/13/24 00:16 12/13/24 00:21 12/13/24 00:26 Temperature Pulse Rate Blood Pressure Pulse Oximetry 98 98 98 Oxygen Delivery 12/13/24 00:30 12/13/24 00:31 12/13/24 00:36 Temperature Pulse Rate 76 Blood Pressure 98/61 L Pulse Oximetry 98 97 Oxygen Delivery 12/13/24 00:41 12/13/24 00:46 12/13/24 00:51 Temperature Pulse Rate Blood Pressure Pulse Oximetry 97 97 97 Oxygen Delivery 12/13/24 00:56 12/13/24 01:00 12/13/24 01:01 Temperature Pulse Rate 87 Blood Pressure 111/76 Pulse Oximetry 97 95 Oxygen Delivery 12/13/24 01:06 12/13/24 01:11 12/13/24 01:16 Temperature Pulse Rate Blood Pressure Pulse Oximetry 97 95 97 Oxygen Delivery 12/13/24 01:21 12/13/24 01:26 12/13/24 01:30 Temperature 98.2 F Pulse Rate 114 H Blood Pressure 128/58 L Pulse Oximetry 98 98 Oxygen Delivery 12/13/24 01:31 12/13/24 01:36 12/13/24 01:41 Temperature Pulse Rate Blood Pressure Pulse Oximetry 96 96 97 Oxygen Delivery 12/13/24 01:46 12/13/24 01:51 12/13/24 01:56 Temperature Pulse Rate Blood Pressure Pulse Oximetry 99 97 97 Oxygen Delivery 12/13/24 02:00 12/13/24 02:01 12/13/24 02:06 Temperature Pulse Rate 69 Blood Pressure 138/83 Pulse Oximetry 98 97 Oxygen Delivery 12/13/24 02:11 12/13/24 02:16 12/13/24 02:25 Temperature Pulse Rate Blood Pressure Pulse Oximetry 96 97 85 L Oxygen Delivery 12/13/24 02:30 12/13/24 02:35 12/13/24 02:40 Temperature Pulse Rate 71 Blood Pressure 118/83 Pulse Oximetry 100 98 98 Oxygen Delivery 12/13/24 02:45 12/13/24 02:50 12/13/24 02:55 Temperature Pulse Rate Blood Pressure Pulse Oximetry 98 100 98 Oxygen Delivery 12/13/24 03:00 12/13/24 03:05 12/13/24 03:10 Temperature Pulse Rate 67 Blood Pressure 123/79 Pulse Oximetry 99 98 98 Oxygen Delivery 12/13/24 03:15 12/13/24 03:20 12/13/24 03:25 Temperature Pulse Rate Blood Pressure Pulse Oximetry 99 98 98 Oxygen Delivery 12/13/24 03:30 12/13/24 03:35 12/13/24 03:40 Temperature 97.7 F Pulse Rate 71 Blood Pressure 143/93 H Pulse Oximetry 94 97 97 Oxygen Delivery 12/13/24 03:45 12/13/24 03:50 12/13/24 03:55 Temperature Pulse Rate Blood Pressure Pulse Oximetry 98 98 97 Oxygen Delivery 12/13/24 04:00 12/13/24 04:05 12/13/24 04:10 Temperature Pulse Rate 65 Blood Pressure 95/62 L Pulse Oximetry 99 97 97 Oxygen Delivery 12/13/24 04:15 12/13/24 04:20 12/13/24 04:25 Temperature Pulse Rate Blood Pressure Pulse Oximetry 97 97 97 Oxygen Delivery 12/13/24 04:30 12/13/24 04:35 12/13/24 04:40 Temperature Pulse Rate 72 Blood Pressure 109/63 Pulse Oximetry 97 97 96 Oxygen Delivery 12/13/24 04:45 12/13/24 04:50 12/13/24 04:55 Temperature Pulse Rate Blood Pressure Pulse Oximetry 97 97 98 Oxygen Delivery 12/13/24 05:00 12/13/24 05:05 12/13/24 05:14 Temperature Pulse Rate 85 Blood Pressure 114/69 Pulse Oximetry 98 98 100 Oxygen Delivery 12/13/24 05:19 12/13/24 05:19 12/13/24 05:19 Temperature Pulse Rate Blood Pressure Pulse Oximetry 100 100 99 Oxygen Delivery 12/13/24 05:24 12/13/24 05:29 12/13/24 05:30 Temperature Pulse Rate 66 Blood Pressure 155/96 H Pulse Oximetry 99 98 Oxygen Delivery 12/13/24 05:34 12/13/24 05:39 12/13/24 05:44 Temperature Pulse Rate Blood Pressure Pulse Oximetry 98 98 99 Oxygen Delivery 12/13/24 05:49 12/13/24 05:54 12/13/24 05:59 Temperature Pulse Rate Blood Pressure Pulse Oximetry 97 98 97 Oxygen Delivery 12/13/24 06:00 12/13/24 06:04 12/13/24 06:09 Temperature Pulse Rate 71 Blood Pressure 139/92 H Pulse Oximetry 98 100 Oxygen Delivery 12/13/24 06:14 12/13/24 06:19 12/13/24 06:24 Temperature Pulse Rate Blood Pressure Pulse Oximetry 98 97 98 Oxygen Delivery 12/13/24 06:29 12/13/24 06:30 12/13/24 06:34 Temperature Pulse Rate 72 Blood Pressure 121/71 Pulse Oximetry 97 98 Oxygen Delivery 12/13/24 06:39 12/13/24 06:44 12/13/24 06:49 Temperature Pulse Rate Blood Pressure Pulse Oximetry 97 96 95 Oxygen Delivery 12/13/24 06:54 12/13/24 06:59 12/13/24 07:00 Temperature Pulse Rate 76 Blood Pressure 112/67 Pulse Oximetry 96 96 Oxygen Delivery 12/13/24 07:04 12/13/24 07:09 12/13/24 07:14 Temperature Pulse Rate Blood Pressure Pulse Oximetry 97 95 95 Oxygen Delivery 12/13/24 07:19 12/13/24 07:24 12/13/24 07:29 Temperature Pulse Rate Blood Pressure Pulse Oximetry 96 98 95 Oxygen Delivery 12/13/24 07:34 12/13/24 07:39 12/13/24 07:44 Temperature Pulse Rate Blood Pressure Pulse Oximetry 99 98 100 Oxygen Delivery 12/13/24 07:49 12/13/24 07:54 12/13/24 08:04 Temperature Pulse Rate Blood Pressure Pulse Oximetry 98 97 94 Oxygen Delivery 12/13/24 08:06 12/13/24 08:11 12/13/24 08:13 Temperature Pulse Rate Blood Pressure Pulse Oximetry 100 100 100 Oxygen Delivery 12/13/24 08:18 12/13/24 08:23 12/13/24 08:28 Temperature Pulse Rate Blood Pressure Pulse Oximetry 100 98 100 Oxygen Delivery 12/13/24 08:30 12/13/24 08:31 12/13/24 08:36 Temperature Pulse Rate 61 Blood Pressure 150/95 H Pulse Oximetry 98 99 Oxygen Delivery 12/13/24 08:38 12/13/24 08:41 12/13/24 08:46 Temperature 97.4 F L Pulse Rate Blood Pressure Pulse Oximetry 99 99 Oxygen Delivery 12/13/24 08:51 12/13/24 08:56 12/13/24 09:00 Temperature Pulse Rate 79 Blood Pressure 122/106 H Pulse Oximetry 99 99 Oxygen Delivery 12/13/24 09:30 12/13/24 09:31 12/13/24 09:36 Temperature Pulse Rate 67 Blood Pressure 124/72 Pulse Oximetry 100 100 Oxygen Delivery 12/13/24 09:41 12/13/24 09:44 12/13/24 09:49 Temperature Pulse Rate Blood Pressure Pulse Oximetry 98 100 98 Oxygen Delivery 12/13/24 09:49 12/13/24 09:54 12/13/24 09:59 Temperature Pulse Rate 71 Blood Pressure Pulse Oximetry 98 99 Oxygen Delivery 12/13/24 10:01 12/13/24 10:04 12/13/24 10:10 Temperature Pulse Rate 65 Blood Pressure 149/89 H Pulse Oximetry 100 100 Oxygen Delivery Exam Const: General: no acute distress Eyes: General: appearance normal, both eyes and all related structures Resp: Effort & Inspection: normal respiratory effort Cardio: Rate: regular rate GI: Other: Gravid no fundal tenderness no right upper quadrant pain Skin: General skin exam: no rashes or lesions noted Neuro: Cognition (Neuro): normal cognition Extrem: General: normal to inspection Psych: Mental Status: mental status grossly normal H&P: Results Labs Labs: Short CBC 12/12/24 Range/Units 19:32 WBC 5.3 (4.5-10.0) K/mm3 Hgb 8.8 L (12.0-15.0) g/dL Hct 29.2 L (37.0-47.0) % Plt Count 189 (150-375) k/mm3 Assessment and Plan Assessment and plan (1) Pre-eclampsia: Code(s): O14.90 - Unspecified pre-eclampsia, unspecified trimester Status: Acute Assessment and Plan: Without severe features. Admit. Cervidil then Pitocin.
--- NOTE | 2024-12-13 10:15 | P.PNOB_ITS ---
OB - PN: Subj Subjective Date/time seen: 12/13/24 0815 Interval history: Cat 1 tracing. OB - PN: Obj Data Labs 12/14/24 14:33 Labs: Laboratory Results - last 24 hr 12/12/24 19:32 WBC 5.3 RBC 4.11 L Hgb 8.8 L Hct 29.2 L MCV 71.0 L MCH 21.4 L MCHC 30.1 L RDW 13.8 Plt Count 189 MPV 12.8 H Immature Gran % (Auto) 0.2 Neut % (Auto) 56.7 Lymph % (Auto) 31.1 [place] % (Auto) 10.6 H Eos % (Auto) 0.8 Baso % (Auto) 0.6 Lymph # (Auto) 1.65 [place] # (Auto) 0.6 Eos # (Auto) 0.0 Baso # (Auto) 0.0 Abs Immat Gran (auto) 0.01 Absolute Neuts (auto) 3.0 Absolute Nucleated RBC 0.000 Band Neutrophils % Not Reportable Nucleated RBC % 0.0 Platelet Estimate Adequate % Immature Plt Fraction 10.5 Hypochromasia 1+ Microcytosis 1+ Ovalocytes Occasional Schistocytes None seen Syphilis IgG/IgM Ab Non-reactive Hep Bs Antigen Negative Blood Type B Positive Antibody Screen Negative OB - PN A/P Time Spent With Patient Time: Total time spent is greater than 50% in coordination of care (as documented) at patient's floor/unit and/or counseling patient:
[2024-12-13] MEDS: fentaNYL CITRATE INJ (*CRX) 100 MCG/2 ML VIAL IV PUSH (11:49)
[2024-12-13] MEDS: LACTATED RINGERS 1,000 ML 125 ML IV CONT (12:28)
[2024-12-13] MEDS: fentaNYL CITRATE INJ (*CRX) 100 MCG/2 ML VIAL 50 MCG IV PUSH (14:11)
[2024-12-13] MEDS: OXYTOCIN 30 UNITS/NS 500 ML 30 UNITS/500 ML BAG 999 UNITS IV CONT (14:21)
--- NOTE | 2024-12-13 14:36 | P.PCNOB_ITS ---
OB - Vaginal Delivery Note Procedure Delivery date: 12/15/24 Events: Gestational Hypertension Induction method: Per Misoprostol Protocol Delivery augmentation: Pitocin Delivery monitor: External FHT Route of delivery: Episiotomy description: None Laceration Description: Perineal - 1st Degree Delivery repair: vicryl (2.0 vicryl) Specimen: Yes Quantitative Blood Loss (ml): 545 Anesthesia type: Epidural Disposition: Other Complications: Other complications Narrative: She was admitted for IOL. She had SROM. She progressed to active labor. She had a vaginal delivery of a male infant. Placenta had gradual descent but undelivered by 30 minutes. The placenta was delivered and inspected and both placentas appeared same size and there was missing fragments from the second placenta. The uterus was swept and pieces of placenta and membranes retrieved. Placental tissue felt densely adhered to cavity. She had intermittent hypotonia. She was given 1000mcg cytotec. Ultrasound was used and moderate amount of products visualized. She was recommended for dilation and curettage and informed of risk benefits and agreed to procedure. While waiting for OR room a Joceline device placed and she was taken to OR. Alligator Baby Date of : 12/13/24 Time of : 13:36 Gestational Age by Date: 37 Infant gender: Male Weight (pounds): 7 Weight (ounces): 5 presentation: vertex position: Right Occiput Anterior Placenta delivery description: Uterine Exploration and Abnormal Configuration Cord Vessel Description: 3 Vessels score one minute: 8 score five minutes: 9
--- NOTE | 2024-12-13 14:44 | P.PNAN_ITS ---
Anes - Initial Pre Proc Eval Procedure: Operation Date: 12/13/24 16:00 Proposed Procedures p Suction Dilatation And Curettage - Efrem Hobbs MD Date/Time: 12/13/24 14:44 Surgeon: Efrem Hobbs MD Pre Op Diagnosis: IOL Patient Data Age: 39 Gender: F Height: 1.7 m Weight: 78 kg Last Vital Signs Temp 36.6 C 12/13/24 10:42 Pulse 67 12/13/24 14:15 BP 127/85 12/13/24 14:15 Pulse Ox 100 12/13/24 14:30 O2 Del Method Room Air 12/12/24 19:58 Allergies Allergy/AdvReac Type Severity Reaction Status Date / Time No Known Allergies Allergy Verified 12/13/24 14:44 Home Medications ?Medication ?Instructions ?Recorded ?Confirmed ?Type ondansetron HCl 4 mg tablet 4 mg PO Q6H PRN nausea and 09/13/24 12/12/24 Rx vomiting #20 tabs pantoprazole 20 mg tablet,delayed 20 mg PO QAM #30 tab s 11/22/24 12/12/24 Rx release Laboratory Tests 12/12/24 19:32 WBC 5.3 K/mm3 (4.5-10.0) RBC 4.11 L M/mm3 (4.2-5.4) Hgb 8.8 L g/dL (12.0-15.0) Hct 29.2 L % (37.0-47.0) MCV 71.0 L fl (80-100) MCH 21.4 L pg (26-34) MCHC 30.1 L g/dl (32-36) RDW 13.8 % (11.5-14.5) Plt Count 189 k/mm3 (150-375) MPV 12.8 H fl (7.4-10.4) Immature Gran % (Auto) 0.2 % (0-0.5) Neut % (Auto) 56.7 % (45.5-73.1) Lymph % (Auto) 31.1 % (18.3-44.2) [place] % (Auto) 10.6 H % (2.6-8.5) Eos % (Auto) 0.8 % (0-4.4) Baso % (Auto) 0.6 % (0.2-1.2) Lymph # (Auto) 1.65 K/mm3 (0.9-3.2) [facility] # (Auto) 0.6 K/mm3 (0.1-0.6) Eos # (Auto) 0.0 K/mm3 (0-0.3) Baso # (Auto) 0.0 K/mm3 (0.0-0.1) Abs Immat Gran (auto) 0.01 K/mm3 (0.00-0.031) Absolute Neuts (auto) 3.0 K/mm3 (1.3-6.7) Absolute Nucleated RBC 0.000 K/mm3 (0.0-0.012) Band Neutrophils % Not Reportable Nucleated RBC % 0.0 % (0.0-0.2) Platelet Estimate Adequate (Adequate) % Immature Plt Fraction 10.5 % (0.9-11.2) Hypochromasia 1+ Microcytosis 1+ (NORMAL) Ovalocytes Occasional Schistocytes None seen Syphilis IgG/IgM Ab Non-reactive (Nonreactive) Hep Bs Antigen Negative (Negative) Blood Type B Positive Antibody Screen Negative Patient hx anesthesia problems: none Family hx anesthesia problems: none Results Review: All pre-operative results and documents have been reviewed as part of the pre- operative evaluation. [facility] Past Medical History Medical History Migraines Dizziness History of miscarriage Periodic limb movement Sleep difficulties Vaginitis Pain in scapula Anemia Asthma Family History Family History Father No problems noted. Other Hypertension Social History Social History Smoking status: Never smoker Second hand tobacco smoke exposure: No Alcohol intake: current Alcohol use details: occasional Substance use: never Substance use type: does not use Do You Feel Safe in your Home?: Yes Lack of Transportation: No Lack of Food: Sometimes True Current Housing: I Have Housing Concerned About Future Housing: No Difficulty Paying Gas/Electric Bills: No Difficulty Paying for Meds: No Currently Unemployed: No Education: High School Diploma/GED Difficulty w/ Childcare or Family Care: No Living arrangements: with family Occupation/Education: occupation Gender identity (if verbalized by the patient): Female Sexual Orientation (if Verbalized by the Patient): Straight or Heterosexual Spiritual care concerns: No Agree to blood products: Yes Anes - Eval Final PreProcedure Day of Procedure 12/13/24 14:44 Patient weight: normal Heart: regular rate and rhythm Lungs: clear to auscultation Airway: Mallampati scale class II Neurological: lethargic Last oral intake: >/= 8 hours ASA classification: II Emergent: yes Anesthetic plan: proceed Anesthesia type and monitoring: regional epidural and standard monitoring Results Review: All pre-operative results and documents have been reviewed as part of the pre- operative evaluation. Informed Consent: The patient's anesthetic plan and its attendant risks and benefits were discussed with the patient/family/POA. Questions were solicited and answers provided to the satisfaction of the patient/family/POA.
--- NOTE | 2024-12-13 15:03 | S_PTH ---
PATIENT: Betsy Burch LOC: ANHOB2 U#:[id number] AGE/SX: 39/F ROOM: 280 RE12/12/[address]: Arslan Lewis MD : 1985 BED: 00 DIS: 12/15/2024 SPEC #: [id number] RECD: 12/14/24 11:27 STATUS: UMER REJacob #: [id number] URSULA: 12/13/24 15:[address]: Efrem Hobbs DEPT: [facility] Surgical RECD BY: Carmencita Nguyen ENTERED: 12/14/24 11:27 SP TYPE: Surgical OTHR DR: Itzel Santana APRN Tissues: A - RET PLACENTA Procedures: Hematoxylin and Eosin Stain Gross and Microscopic Level 4
[2024-12-13] MEDS: LACTATED RINGERS 1,000 ML 30 ML IV CONT ×2 (15:49→16:38)
[2024-12-13] MEDS: TRANEXAMIC ACID 1,000 MG/10 ML AMPUL 1000 MG IV PUSH (15:59)
[2024-12-13] MEDS: DEXTROSE 5%/0.45% SOD CHL 1,000 ML 125 ML (18:27)
[2024-12-13] MEDS: TRANEXAMIC ACID 1,000MG/ISO100 1,000 MG/100 ML BAG 200 MG IVPB (19:00)
[2024-12-13] MEDS: ceFAZolin 1 GM in SODIUM CHLORIDE 0.9% IV 50 ML 100 ML IVPB (19:00)
[2024-12-13] MEDS: CLINDAMYCIN 900 MG/D5W 50 ML 900 MG/50 ML PIGGYBACK 50 MG IVPB (19:15)
[2024-12-13 22:28] LABS: Hematocrit 22.2 % (37.0-47.0); Immature Platelet Fraction Pct 10.0 % (0.9-11.2); Mean Corpuscular HGB Conc 30.2 g/dl (32-36); Mean Corpuscular Hemoglobin 21.8 pg (26-34); Mean Corpuscular Volume 72.3 fl (80-100); Platelet Count Result 146 k/mm3 (150-375); Red Blood Count 3.07 M/mm3 (4.2-5.4); White Blood Count 11.9 K/mm3 (4.5-10.0)
[2024-12-13 22:37] LABS: Hemoglobin 6.7 g/dL (12.0-15.0)
[2024-12-13 22:38] LABS: INR 1.2; Partial Thromboplastin Time 30.5 Seconds (22.3-36.8); Prothrombin Time 15.2 Seconds (11.1-14.7)
[2024-12-14] VITALS (18 sets, daily range): BP systolic 118–145; BP diastolic 73–94; PULSE 70–96; RESP 15–18; TEMP 36.7–37.6; O2SAT 98–100
[2024-12-14] MEDS: IBUPROFEN 600 MG TABLET PO ×3 (03:10→21:44)
[2024-12-14] MEDS: HYDROcodone/acetaminophen (*CRX) 5-325 MG TABLET 1 TAB PO (04:20)
--- NOTE | 2024-12-14 07:01 | ECG_ITS ---
Test Date: 2024-12-14 07:17:03 Measurements Intervals [place] Rate: 65 P: 32 SD: 165 QRS: 23 QRSD: 77 T: 31 QT: 377 QTc: 392 Interpretive Statements SINUS RHYTHM BORDERLINE T WAVE ABNORMALITY- ANTERIOR LEADS BORDERLINE ECG No previous ECG available for comparison Electronically Signed On 12-14-2024 07:53:41 CDT by Aníbal Hough D.O.
[2024-12-14] MEDS: CLINDAMYCIN 900 MG/D5W 50 ML 900 MG/50 ML PIGGYBACK 50 MG IVPB (08:10)
[2024-12-14] MEDS: ceFAZolin 1 GM in SODIUM CHLORIDE 0.9% IV 50 ML 100 ML IVPB (09:36)
[2024-12-14] MEDS: LABETALOL HCL 100 MG TABLET 200 MG PO ×2 (09:41→20:32)
--- NOTE | 2024-12-14 10:57 | WPDANLDPN2 ---
Anes-Prog Note L&D Date/Time: 12/14/24 10:57 Comfortable throughout: labor and delivery Neuraxial method: epidural Epidural/Spinal procedure site: clean & non-tender Neuro status: Neuro function grossly intact. Cardiovascular status: normal Respiratory status: normal Airway patency: baseline Mental status: baseline Post-Op hydration status: other (Received 2u PRBCs) Vital Signs: Last Vital Signs Temp 36.7 C 12/14/24 07:12 Pulse 74 12/14/24 09:41 Resp 16 12/14/24 07:12 BP 144/74 H 12/14/24 07:12 Pulse Ox 100 12/14/24 07:12 O2 Del Method Room Air 12/14/24 07:12 Pain score (VAS): 03/10 I/O: Intake & Output 12/13/24 12/14/24 12/14/24 23:59 07:59 15:59 Intake Total 600 350 Output Total 390 700 Balance 210 -350 Post-procedural complaints: none Patient feedback: Patient satisfied with anesthetic care. Other findings: Epidural removed with tip intact per RN OB 2nd floor
[2024-12-14] MEDS: ACETAMINOPHEN 325 MG TABLET 650 MG PO ×2 (14:42→21:43)
[2024-12-14 15:22] LABS: Hematocrit 29.7 % (37.0-47.0); Hemoglobin 9.4 g/dL (12.0-15.0)
[2024-12-15 03:50] VITALS: BP 130/74; PULSE 71; RESP 16; TEMP 36.8; O2SAT 99
--- NOTE | 2024-12-15 07:25 | W.PM.PROC2 ---
Procedure Note - Detailed Date of Procedure 12/27/24 Pre-op Diagnosis Retained placental fragments Post-op Diagnosis Same Procedure Performed Dilation and curettage Surgeon Efrem Hobbs MD Anesthesia Local and Epidural Indications Retained placental fragments, hemorrhage Findings Small amount of placental fragments Description of Procedure After informed consent was obtained. Adequate analgesia was obtained by anesthesia. Abdominal ultrasound while performing suction curettage. Ultrasound showed hyperechoic material in cavity. Sharp curettage was performed and small amount of membranes and placental fragments adherent to anterior uterus was obtained. Ultrasound performed and no obvious tissue observed. Uterine tone normal. There was mild oozing from right lateral periphery of cervix. This area was sutured with with vicryl. Hemostasis noted. Perineal laceration repaired with 2.0 vicryl. Packing placed vaginally. Patient tolerated procedure. Estimated Blood Loss 300 Urine Output 400 Drains No Packing Yes Pathology Yes (Products of conception) Complications No immediate complications Condition Stable Disposition PACU [facility] Billing Surgery - Charge Forward: Surgery Billing
[2024-12-15 08:07] VITALS: PULSE 60
[2024-12-15] MEDS: LABETALOL HCL 100 MG TABLET 200 MG PO (08:07)
[2024-12-15] MEDS: DOCUSATE SODIUM 100 MG CAPSULE PO (08:30)
[2024-12-15 08:35] VITALS: BP 138/90; PULSE 60; RESP 18; TEMP 36.6; O2SAT 100
[2024-12-15] MEDS: ACETAMINOPHEN 325 MG TABLET 650 MG PO (08:37)
[2024-12-15] MEDS: IBUPROFEN 600 MG TABLET PO (08:39)
--- NOTE | 2024-12-15 09:25 | P.PNOB_ITS ---
OB - PN: Subj Subjective Date/time seen: 12/15/24 09:25 Narrative: Pain OK. Would like to go home. OB - PN: Obj Data Labs 12/14/24 14:33 Labs: Laboratory Results - last 24 hr 12/12/24 12/14/24 19:32 14:33 Hgb 9.4 L Hct 29.7 L Crossmatch See Detail OB - PN A/P Plan day: 2 Comments: A: PPD#2, doing well. P: Home to f/u 6 weeks. Exam 2 Psych: Other: AVSS ABD soft, nontender, fundus firm EXT nontender
[2024-12-16 10:34] VITALS: BP 126/76; PULSE 86; RESP 18; TEMP 37.2; O2SAT 100
--- NOTE | 2024-12-27 21:55 | PM.OBDSVD ---
DS: Admitting Diagnosis Discharge Date 12/15/24 Admitting Diagnosis Pre- eclampsia without severe features. DS: Discharge Diagnosis Discharge Diagnosis (1) Pre-eclampsia: Code(s): O14.90 - Unspecified pre-eclampsia, unspecified trimester Status: Acute (2) hemorrhage: Code(s): O72.1 - Other immediate hemorrhage Status: Acute (3) Vaginal delivery: Code(s): O80 - Encounter for full-term uncomplicated delivery Status: Acute OB - DS: Summary Hospital Course Hospital Course: She was admitted for [facility] for pre-eclampsia. She had a vaginal delivery complicated by retained placenta and hemorrhage. Total EBL approximately 1100. She had an uncomplicated dilation and curettage. Her vaginal packing came out on spontaneously after being on floor. Her lochia was light. Prophylactic antibiotics were continued for 24 after procedure. She was afebrile. On day 1 she c/o chest pressure and EKG performed. No concerning changes, her chest pressure resolved. Her post h/h was 6.7/22, prior to delivery h/h-8.8/29. She had 2units PRBC post transfusion h/h was 9.4.29.7. She was asymptomatic. She was continued on oral iron. Baby was doing well. On day 2 she was doing well. Baby was doing well. She was discharged to home on day 2. Her blood pressures were normotensive after delivery. OB Procedures : PIH Mgmt and Ultrasound OB Procedures Intrapartum: Spontaneous Vag Delivery, Curettage and Retained placenta OB Procedures: : Transfusion, Curettage and Antibiotics (prophylactic) Peripartum Data Infant Delivery Method: Natural Vaginal Laceration Description: Perineal - 1st Degree Episiotomy description: None Procedures: Procedures Operation Date: 12/13/24 16:00 Actual Procedure Side Surgeon p Suction Dilatation And Curettage Not Applicable Efrem Hobbs MD complications: none Status at Discharge Functional status at discharge: independent ambulation Time Spent with Patient Time attestation: Total time spent providing and/or coordinating discharge services: Exam Const: General: cooperative Orientation/consciousness: oriented to person, oriented to place and oriented to time HENMT: Face/Nose/Sinus: Normal external nose present Eyes: General: appearance normal, both eyes and all related structures Resp: Effort & Inspection: normal respiratory effort GI: Inspection: normal to inspection Skin: General skin exam: normal color Neuro: General: oriented to person, oriented to place and oriented to time Extrem: General: normal to inspection and no calf tenderness Psych: Appearance: grossly normal DS: Data Data Completed and Pending Completed studies during hospitalization: Pending at discharge 12/13/24 15:03 Surgical [PTH] Routine Discharge Plan Discharge Attending physician on discharge: Efrem Hobbs Consulting providers: Kenia Anna; Juanjose English; Aníbal Hough; Yara Vides Discharging Clinician: Arslan Lewis Patient Disposition: Home Activity: pelvic rest Diet: regular Discharge Instructions: Call or return if temperature above 100.4? F, increased abdominal pain, increased vaginal bleeding or any new problems.Education: Mom and Baby Guide Given to: Mother Follow-Up: Call your delivering provider's office for an appointment to be seen in: Call for appointment Mom and baby should come to the [facility] for the follow-up appointment. Appointment Date/Time: December 16, 2024 at 10:00 am What to expect at your follow-up visit: Physical Assessment Call [phone] if you are unable to keep your appointment time. BREAST CARE: * Wear a snug supportive bra. * For engorgement discomfort: Bottle Feeding: * May apply ice packs EPISIOTOMY/PERINEAL CARE: * Until bleeding stops, use your lisa bottle after urinating * Change your pad frequently throughout the day * You may take sitz baths several times a day (fill your bathtub with warm water and soak for 20 minutes.) Do NOT bathe in the water * No tub baths until seen by your physician - You may shower ACTIVITY: * Rest as much as possible. * Do not exercise or lift anything heavier than your baby (such as laundry or other children.) * Avoid stairs or driving as much as possible. * Do not put anything into the vagina. No douching, tampons, or sexual activity until seen by physician. NOTIFY PHYSICIAN IF YOU HAVE ANY QUESTIONS OR IF ANY OF THE FOLLOWING SYMPTOMS OCCUR: * If your episiotomy or incision becomes red, swollen, or more painful than what you have experienced in the hospital. * If your vaginal bleeding becomes foul smelling. * If your vaginal bleeding becomes more heavy than a period or if your bleeding changes from pink to bright red. However, you may pass an occasional walnut-sized clot once or twice for the first week . * If you experience a sharp, shooting pain in you calves. * If you discover a hard, reddened area on your breast or if you experience flu-like symptoms. DIET: * Eat regular, well-balanced meals. * Drink plenty of fluids daily. If , drink to thirst. Patient Language: Spanish Stand Alone Forms: General Discharge Information Follow-up/Referrals: Efrem Hobbs MD [Physician, APPLICATION DEVELOPMENT CONSULTANT] - Call for Appointment Discharge Medications: New ferrous sulfate 325 mg (65 mg iron) tablet 325 mg PO DAILY Qty: 30 0RF ibuprofen 600 mg tablet 600 mg PO Q6H PRN (Reason: cramps) Qty: 30 0RF Discontinued ondansetron HCl 4 mg tablet 4 mg PO Q6H PRN (Reason: nausea and vomiting) Qty: 20 0RF No Action nifedipine [Procardia XL] 30 mg Tablet Extended Release 24hr 30 mg PO QAM Qty: 30 0RF Date of admission: 12/12/24 18:38 Primary Care Provider: Itzel Santana Admitting Provider: Efrem Hobbs Attending physician on admission: Arslan Lewis Condition: Stable
--- NOTE | 2024-12-27 22:09 | WPDHPUPDATE1 ---
History and Physical Update Update Date/Time: 12/27/24 22:09 History and Physical has been reviewed, including an updated exam of the patient. There are NO changes in the patient's condition. Risks, benefits, and alternatives have been discussed and questions answered. Patient agrees to proceed with procedure.
== END 2024-12-15 13:53 | disposition home or self-care (01) | DRG 541 ==
LOC: ANHLDR 12-13 14:19 → ANHOB2 12-15 09:26 → ANHLDR 12-18 08:50 → ANHOB2 12-18 08:50
PROVIDERS: Admitting Provider Obstetrics & Gynecology; PCP Nurse Practitioner Family; Visit Provider Obstetrics & Gynecology
PROC: 10E0XZZ Delivery of Products of Conception, External Approach (ICD-10-PCS; principal; 2024-12-13 16:00)
DX: O13.4 Gestational [pregnancy-induced] hypertension without significant proteinuria, complicating childbirth (principal); Z3A.37 37 weeks gestation of pregnancy; Z37.0 Single live birth; O62.2 Other uterine inertia; O70.9 Perineal laceration during delivery, unspecified; O73.1 Retained portions of placenta and membranes, without hemorrhage
CPT/HCPCS: 36415; 36430; 76819; 80053; 81001; 81050; 82570; 82575; 84156; 84550; 85014; 85018; 85025; 85027; 85055; 85610; 85730; 86593; 86850; 86900; 86901; 86923; 87340; 88305; 93005; A9270; J0290; J0690; J2003; J2004; J2210; J2405; J2590; J2704; J2795; J3010; J3290; J7050; J7120; P9016

== ENCOUNTER 2024-12-21 11:09 | Inpatient (IN) | payer OTHER, SELFPAY ==
[2024-12-21] VITALS (23 sets, daily range): BP systolic 127–185; BP diastolic 83–112; PULSE 64–81; RESP 16–18; TEMP 36.2–37.3; O2SAT 98–100
[2024-12-21 10:48] LABS: Hematocrit 33.5 % (37.0-47.0); Hemoglobin 10.5 g/dL (12.0-15.0); Immature Granulocyte Percent A 0.4 % (0-0.5); Lymphocytes Absolute Auto 1.54 K/mm3 (0.9-3.2); Mean Corpuscular HGB Conc 31.3 g/dl (32-36); Mean Corpuscular Hemoglobin 23.7 pg (26-34); Mean Corpuscular Volume 75.6 fl (80-100); Nucleated Red Blood Cells Absolute Auto 0.000 K/mm3 (0.0-0.012); Nucleated Red Blood Cells Perc 0.0 % (0.0-0.2); Platelet Count Result 397 k/mm3 (150-375); Red Blood Count 4.43 M/mm3 (4.2-5.4); White Blood Count 7.8 K/mm3 (4.5-10.0)
--- OUTSIDE RECORDS SUMMARY | 2024-12-21 11:06 | XMS_ITS | Clinical Summary ---
Author Organization [facility] [employer] Address [address] [place] [address] [address] Care Team Providers Care Hand Bootmaker Name Role Phone Unavailable Primary Care Provider Unavailabl e Source Comments [facility] [employer],non-owned Affiliates and Associated Physician Practices is amultiple site organization consisting of ambulatory clinics and hospital sitesin [place], [place], [place]. This disclosure is being madepursuant to the Care Everywhere program and may not contain all information available regarding this patient. Last updated 17.[employer] Allergies No known active allergies Medications * [...] Active Problems Problem Noted Date Diagnosed Date renal anomaly, single gestation 11/21/2024 Overview (11/21/2024): Left Pelvic Kidney Second 09/09/2018 Encounter for ultrasound 09/09/2018 Abnormal ultrasound 09/09/2018 Resolved Problems Problem Noted Date Diagnosed Date Resolved Date Depression screen 10/23/2024 12/19/2024 Overview (10/23/2024): 10/23/2024 Jolynn Bergeron was screened for depression using the [place] Depression Scale (EPDS) at her [facility] initial evaluation on 10/23/2024. Her initial score at baseline was 0. Based off of her score of 0, Jolynn does not warrant follow up. Patient will continue to be screened throughout , at intervals no closer than two weeks, for continued surveillance and early identification of depression until delivery. Patient reports mental health history. Diagnosis includes anxiety. abnormality in 09/25/2024 12/19/2024 Overview (12/11/2024): Images from the original note were not included. LONG TERM PATIENT--PLEASE CALL [phone] (ex 2) IF TRIAGED OR ADMITTED Care Provider: Dr. Hobbs [facility] consultants involved: RN- Tanya; [facility]- Dr. Oro; Ui Developer Designer- Dr. 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 Planned surveillance: Initial LONG TERM 10/23. Follow up ultrasound in 4 weeks for growth and GIANNI (at [facility] testing as clinically indicated. Continue routine OB care Delivery location: [facility] Delivery mode: per usual obstetric indications Desired Delivery GA: per usual obstetric indications follow up: per Nephrology: We discussed the need for an initial ultrasound at about 2 weeks after delivery. We will see the patient in the outpatient center and get an ultrasound at that time. Tool Repairer Bench: Dr. Barber Environmental Health Technologist Concerns: 10/23/2024-Patient with history of anxiety-no medications Care plan based on evaluation and is subject to change based on assessment. See Images or Cardiac under Chart Review for US/ ECHO/ MRI reports. Encounters Date Type Department Care Team Description 11/21/2024 11:07 AM CDT - 11/21/2024 11:59 PM CDT Hospital Encounter [facility] Women's Health Maternal & Care [address] [place] [address] Arturo Espinoza MD Discharge Disposition: Home or Self Care 10/23/2024 8:45 AM CDT - 10/23/2024 11:59 PM CDT Hospital Encounter [address] [place] [address] Courtney Oro MD Discharge Disposition: Home or Self Care 10/23/[address] [address] Courtney Miller A Update 10/20/[address] [address] Melanie Madsen, NELLY Reminder Call 09/25/[address] [address] Courtney Miller Referral from Last 3 Months [...] have money to get more. Sometimes true [place] Depression Scale Answer Date Recorded [place] Depression Scale Total 0 10/23/2024 The thought of harming myself has occurred to me . Never 10/23/2024 Comments No Sex and Gender Information Value Date Recorded [...] VACCINE (1 - 3-dose SCDM series) 2014 DEPRESSION SCREENING 03/01/2024 COVID-19 VACCINE (2 - 2024-2 6 season) 2024 11/09/2022 INFLUENZA VACCINE (#1) 2024 , 12/28/2022 ZOSTER VACCINE (1 of 2) 2037 HIB [...] on patient's age to complete this topic Procedures Procedure Name Priority Date/Time Associated Diagnosis [...] History ====== OB History 5. Para 2 [id number] 1. live 2006. Gest. 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 Anatomical Region Laterality Modality Other 11/21/2024 11:1 9 AM CDT Efrem Lindquist MD [facility] ORDERABLES Edited Result - Final from Last 3 Months Insurance [facility] SELF PAY NO INSURANCE Member Subscriber Plan / Payer (Ef fective for All Dates) Name:Jolynn Bergeron Member ID:Not on file Relation to Subscriber:Not on file Name:JOLYNN BERGERON Subscriber ID:Not on file (Home) Address: [address] [place] [address] Payer ID:Not on file Group ID:Not on file Type:Self Pay Address: [place], [place] [facility]
--- OUTSIDE RECORDS SUMMARY | 2024-12-21 11:06 | XMS_ITS | Encounter Summary ---
Author Organization [facility] Health Address [address] [place] [address] Care Team Providers Care Feed In Worker Name Role Phone Unavailable Primary Care Provider Unavailabl e Prior Encounters Date Type Department Care Team Description 03/20/2019 Converted 13x Documents [address] [address] <No scans attached> Plan of Treatment Not on file Procedures Procedure Name Priority Date/Time Associated Diagnosis Comments MISSED APPOINTMENT Routine 04/04/2020 2:00 AM PATIENT OFFICE REP Visit Diagnoses Not on file
--- OUTSIDE RECORDS SUMMARY | 2024-12-21 11:06 | XMS_ITS | Clinical Summary ---
Author Organization [facility] Health Address [address] [place] [address] Care Team Providers Care Restaurant Service Manager Name Role Phone Unavailable Primary Care [...]
[2024-12-21 11:18] LABS: Alanine Aminotransferase 21 U/L (6-35); Albumin Level 3.6 g/dL (3.5-5.1); Alkaline Phosphatase 176 U/L (38-126); Anion Gap 7 mmol/L (4-12); Aspartate Amino Transferase 23 U/L (14-36); Bilirubin,Total 0.9 mg/dL (0.2-1.3); Blood Urea Nitrogen 7 mg/dL (7-17); Calcium 8.4 mg/dL (8.4-10.2); Carbon Dioxide 26 mmol/L (22-30); Chloride 104 mmol/L (98-107); Estimated Glomerular Filt Rate > 60; Glucose 76 mg/dL (65-110); Potassium 3.7 mmol/L (3.4-5.0); Sodium 137 mmol/L (137-145); Total Protein 7.9 g/dL (6.3-8.2); Uric Acid 4.2 mg/dL (2.5-7.5)
[2024-12-21] MEDS: MAGNESIUM SULF 4 GM/WATER100ML 4 GM/100 ML BAG IVPB (11:30)
[2024-12-21] MEDS: LACTATED RINGERS 1,000 ML 75 ML IV CONT (11:32)
[2024-12-21] MEDS: MAGNESIUM SULF 20GM/WATER500ML 500 ML 50 MG IV CONT ×2 (12:03→22:05)
[2024-12-21] MEDS: IBUPROFEN 600 MG TABLET PO (15:26)
--- NOTE | 2024-12-21 17:44 | PC.NURSE ---
Addendum entered by Kenia Davis RN 12/21/24 17:46: Call placed at 1108 Original Note: Dr Hobbs notified of severe range BP's. Orders reeceived.
--- NOTE | 2024-12-21 17:47 | PC.NURSE ---
Addendum entered by Kenia Davis RN 12/21/24 17:49: Call received at 1417 Original Note: Dr Hobbs called in for update, informed of BP's. Orders received.
[2024-12-21] MEDS: ACETAMINOPHEN 500 MG TABLET 1000 MG PO (20:09)
[2024-12-21] MEDS: LABETALOL HCL 100 MG TABLET 200 MG PO (21:00)
--- NOTE | 2024-12-21 22:51 | PC.NURSE ---
[phone]- RN paged . 225- MD returned page. RN reported pts pain rating, latest blood pressures and time of medication administration. Orders received.
[2024-12-21] MEDS: METOCLOPRAMIDE HCL INJ 10 MG/2 ML VIAL IV PUSH (23:01)
[2024-12-22] VITALS (37 sets, daily range): BP systolic 110–174; BP diastolic 61–109; PULSE 36–86; RESP 14–18; TEMP 36.2–37.4; O2SAT 83–100
--- NOTE | 2024-12-22 00:05 | PC.NURSE ---
Pt resting at this time. Pt states that headache has decreased.
[2024-12-22] MEDS: LACTATED RINGERS 1,000 ML 75 ML IV CONT (00:22)
[2024-12-22] MEDS: ACETAMINOPHEN 500 MG TABLET 1000 MG PO (07:06)
--- NOTE | 2024-12-22 07:23 | PC.NURSE ---
Dr Hobbs informed of patient's blood pressure and headache this morning. order received increase labetalol dose.
[2024-12-22] MEDS: LABETALOL HCL 100 MG TABLET 400 MG PO (07:49)
[2024-12-22] MEDS: MAGNESIUM SULF 20GM/WATER500ML 500 ML 50 MG IV CONT (08:06)
--- NOTE | 2024-12-22 08:56 | PM.IMHP ---
H&P: HPI History of Present Illness Date/Time: 12/22/24 08:56 Chief Complaint: She presented with complaint of headache. She did have increase blood pressure at [facility] appointment on 12/20 and was told to come in for evaluation. She presented the next day. Blood pressures in severe range. Labs normal. Review of Systems Review of Systems: All systems reviewed & are unremarkable except as noted in HPI and below Constitutional: Constitutional: Reports no additional constitutional complaints Eyes: Eyes: Denies spots in vision ENT: Reports system reviewed and no additional complaints, except as documented Cardiovascular: Cardiovascular: Denies chest pain and Denies dyspnea Respiratory: Respiratory: Denies dyspnea Gastrointestinal: Gastrointestinal: Reports no additional gastrointestinal complaints Musculoskeletal: Musculoskeletal: Reports no additional musculoskeletal complaints Integumentary/Breasts: Skin/Breast: Denies breast mass and Denies rash Neurologic: Denies headache(s) Psychiatric: Psychiatric: Reports no additional psychiatric complaints PMF Past Medical History Medical History Migraines Dizziness History of miscarriage Periodic limb movement Sleep difficulties Vaginitis Pain in scapula Anemia Asthma Family History Family History Father No problems noted. Other Hypertension Social History Social History Smoking status: Never smoker Second hand tobacco smoke exposure: No Alcohol intake: current Alcohol use details: occasional Substance use: never Substance use type: does not use Do You Feel Safe in your Home?: Yes Lack of Transportation: No Lack of Food: Never True Current Housing: I Have Housing Concerned About Future Housing: No Difficulty Paying Gas/Electric Bills: No Difficulty Paying for Meds: No Currently Unemployed: No Education: High School Diploma/GED Difficulty w/ Childcare or Family Care: No Living arrangements: with family Occupation/Education: occupation Gender identity (if verbalized by the patient): Female Sexual Orientation (if Verbalized by the Patient): Straight or Heterosexual Spiritual care concerns: No Agree to blood products: Yes Meds Home Medications and Allergies Home Medications ?Medication ?Instructions ?Recorded ?Confirmed ?Type ferrous sulfate 325 mg (65 mg 325 mg PO DAILY #30 tabs 12/15/24 12/18/24 Rx iron) tablet ibuprofen 600 mg tablet 600 mg PO Q6H PRN cramps #30 tabs 12/15/24 12/18/24 Rx nifedipine 30 mg tablet,extended 30 mg PO QAM #30 tabs 12/23/24 Rx release 24 hr (Procardia XL) Allergies Allergy/AdvReac Type Severity Reaction Status Date / Time No Known Allergies Allergy Verified 12/18/24 11:26 Vital Signs Vital Signs - 24 hr 12/21/24 10:15 12/21/24 10:43 12/21/24 10:46 Temperature Pulse Rate 75 67 Respiratory Rate Blood Pressure 169/103 H 180/101 H Pulse Oximetry Oxygen Delivery Room Air 12/21/24 11:01 12/21/24 11:16 12/21/24 11:30 Temperature 99.1 F Pulse Rate 65 72 Respiratory Rate 16 Blood Pressure 185/103 H 180/108 H Pulse Oximetry Oxygen Delivery 12/21/24 11:36 12/21/24 11:46 12/21/24 11:49 Temperature Pulse Rate 70 67 67 Respiratory Rate Blood Pressure 176/105 H 152/112 H Pulse Oximetry Oxygen Delivery 12/21/24 12:00 12/21/24 12:01 12/21/24 12:16 Temperature 98.7 F Pulse Rate 72 66 Respiratory Rate 18 Blood Pressure 149/92 H 139/90 Pulse Oximetry Oxygen Delivery 12/21/24 12:31 12/21/24 14:47 12/21/24 16:00 Temperature 98.6 F Pulse Rate 64 81 Respiratory Rate 16 Blood Pressure 144/83 H 151/98 H Pulse Oximetry Oxygen Delivery 12/21/24 17:01 12/21/24 18:00 12/21/24 18:53 Temperature Pulse Rate 75 79 Respiratory Rate Blood Pressure 158/85 H 127/83 Pulse Oximetry Oxygen Delivery Room Air 12/21/24 18:54 12/21/24 19:00 12/21/24 20:59 Temperature 97.2 F L Pulse Rate 71 Respiratory Rate 18 Blood Pressure 142/91 H Pulse Oximetry 100 98 Oxygen Delivery 12/21/24 21:00 12/21/24 21:00 12/21/24 22:47 Temperature 97.8 F Pulse Rate 69 70 Respiratory Rate 16 Blood Pressure 148/91 H Pulse Oximetry Oxygen Delivery 12/21/24 23:00 12/21/24 23:01 12/22/24 00:59 Temperature 97.8 F Pulse Rate 78 Respiratory Rate 16 Blood Pressure 120/78 Pulse Oximetry 99 83 L Oxygen Delivery 12/22/24 01:00 12/22/24 02:58 12/22/24 03:00 Temperature 98.2 F 98.3 F Pulse Rate 70 Respiratory Rate 16 15 Blood Pressure 132/81 Pulse Oximetry 96 Oxygen Delivery 12/22/24 07:08 12/22/24 07:11 12/22/24 07:16 Temperature 99.4 F Pulse Rate 74 72 Respiratory Rate 17 Blood Pressure 151/89 H Pulse Oximetry 99 97 100 Oxygen Delivery 12/22/24 07:49 12/22/24 07:49 Temperature Pulse Rate 75 Respiratory Rate Blood Pressure Pulse Oximetry 95 Oxygen Delivery Exam Const: General: no acute distress Eyes: General: appearance normal, both eyes and all related structures Resp: Effort & Inspection: normal respiratory effort Cardio: Rate: regular rate Skin: General skin exam: no rashes or lesions noted Extrem: General: normal to inspection Psych: Mental Status: mental status grossly normal H&P: Results Labs Labs: Short CBC 12/21/24 Range/Units 10:40 WBC 7.8 (4.5-10.0) K/mm3 Hgb 10.5 L (12.0-15.0) g/dL Hct 33.5 L (37.0-47.0) % Plt Count 397 H D (150-375) k/mm3 BMP 12/21/24 10:40 Sodium 137 Potassium 3.7 Chloride 104 Carbon Dioxide 26 BUN 7 Creatinine 0.61 L Glucose 76 Calcium 8.4 Liver Function 12/21/24 Range/Units 10:40 Total Bilirubin 0.9 (0.2-1.3) mg/dL AST 23 (14-36) U/L ALT 21 (6-35) U/L Alkaline Phosphatase 176 H (38-126) U/L Albumin 3.6 (3.5-5.1) g/dL Assessment and Plan Assessment and plan (1) hypertension: Code(s): O16.5 - Unspecified maternal hypertension, complicating the puerperium Status: Acute Assessment and Plan: 1. Admit. 2. Magnesium for siezure prophylaxis. 3. Initiate oral antihypertension maintenance meds.
--- NOTE | 2024-12-22 09:00 | PC.NURSE ---
Dr. Hobbs in to see and assess pt. Headache has decreased to a 2. Pt informed Dr. Hobbs that she had chest discomfort again yesterday when she was admitted. Order received for echo and repeat EKG. To check BP's hourly.
--- NOTE | 2024-12-22 09:08 | ECG_ITS ---
Test Date: 2024-12-22 09:25:33 Measurements Intervals [place] Rate: 71 P: 45 DE: 193 QRS: 52 QRSD: 81 T: 67 QT: 442 QTc: 481 Interpretive Statements SINUS RHYTHM BASELINE ARTIFACT- I, II AVR, AVF, V1 NORMAL ECG Compared to ECG 12/14/2024 07:17:03 No significant changes Electronically Signed On 12-22-2024 10:35:34 CDT by Aníbal Hough D.O.
--- NOTE | 2024-12-22 09:09 | ECHO_ITS ---
Patient Info Name: Betsy Burch Age: 39 years : 1985 Gender: Female Ht: 67 in Wt: 154 lbs BSA: 1.82 m2 HR: 70 bpm BP: 130 / 85 mmHg Technical Quality: Good Exam Date: 12/22/2024 9:41 AM Patient Status: I Admit Date: 12/21/2024 Exam Type: CA echo doppler color flow Complete two-dimensional, color flow and Doppler transthoracic echocardiogram is performed. Criminal Justice Program Director: Violet Dalal Attending Provider: Efrem Hobbs MD Summary 1. Complete two-dimensional, color flow and Doppler transthoracic echocardiogram is performed. 2. Left ventricular chamber dimension is normal. 3. Left ventricular systolic function is normal, estimated at 60-65. 4. The left ventricular diastolic function is normal. 5. E/e' 9 is minimally elevated. 6. There is trace mitral valve regurgitation. 7. There is mild tricuspid valve regurgitation. 8. No pulmonary hypertension, estimated pulmonary arterial systolic pressure is 37 mmHg. 9. There is trace pulmonic regurgitation. Left Ventricle E/e' 9 is minimally elevated. Left ventricular chamber dimension is normal. Left ventricular systolic function is normal, estimated at 60-65. The left ventricular diastolic function is normal. Right Ventricle Right ventricular chamber dimension is normal. Right ventricular systolic function is normal and with normal TAPSE 2.2 cm. Left Atria Left atrial chamber dimension is normal. Right Atria Right atrial chamber dimension is normal. Aortic Valve The aortic valve is trileaflet. There is no aortic valve stenosis. There is no aortic valve regurgitation. Pulmonic Valve There is trace pulmonic regurgitation. Mitral Valve There is no mitral valve stenosis. There is trace mitral valve regurgitation. Tricuspid Valve There is mild tricuspid valve regurgitation. No pulmonary hypertension, estimated pulmonary arterial systolic pressure is 37 mmHg. Pericardium/Pleural There is no pericardial effusion. Inferior Vena Cava Normal inferior vena cava with >50% collapse upon inspiration consistent with normal right atrial pressure, 5 mmHg. Aorta The aortic root size at the sinus of Valsalva is normal. Left Ventricular Outflow Tract Name Value Normal LVOT 2D LVOT Diameter 2.0 cm LVOT Doppler LVOT Peak Velocity 150 cm/s LVOT Peak Gradient 9 mmHg LVOT Mean Gradient 5 mmHg LVOT VTI 35 cm LVOT Stroke Volume 107 ml LVOT CO 7.5 l/min LVOT CI 4.1 l/min/m2 Pulmonic Valve Name Value Normal RVOT Doppler RVOT Peak Velocity 105 cm/s RVOT Peak Gradient 4 mmHg PV Doppler PV Peak Velocity 107 cm/s PV Peak Gradient 5 mmHg Mitral Valve Name Value Normal MV Diastolic Function MV E Peak Velocity 108 cm/s MV A Peak Velocity 65 cm/s MV E/A 1.7 MV Decel Time (PW) 215 ms MV Annular TDI MV E/e' (Septal) 10.4 MV E/e' (Lateral) 9.3 MV E/e' (Average) 9.9 Tricuspid Valve Name Value Normal TV Regurgitation Doppler TR Peak Velocity 282 cm/s TR Peak Gradient 30 mmHg Estimated PAP/RSVP RA Pressure 5 mmHg <=5 PA Systolic Pressure 37 mmHg <36 RV Systolic Pressure 37 mmHg <36 Aortic Valve Name Value Normal AV Doppler AV Peak Velocity 175 cm/s AV Peak Gradient 12 mmHg AV Area (Cont Eq Rao) 2.7 cm2 AV DI (Rao) 0.86 AV Regurgitation 2D LVOT Area 3.1 cm2 Ventricles Name Value Normal LV Dimensions 2D/MM IVS Diastolic Thickness (2D) 0.9 cm 0.6-1.0 LVID Diastole (2D) 4.7 cm 3.8-5.2 LVIW Diastolic Thickness (2D) 1.1 cm 0.6-0.9 LVID Systole (2D) 3.1 cm 2.2-3.5 LVOT Diameter 2.0 cm LV Mass (2D Cubed) 162.94 g 67.00-162.00 LV Mass Index (2D Cubed) 89 g/m2 43-95 Relative Wall Thickness (2D) 0.45 <=0.42 LV Fractional Shortening/Ejection Fraction 2D/MM LV Fractional Shortening (2D) 34 % 27-45 LV EF (2D Teichholz) 63 % LV Diastolic Volume (4C MOD) 132 ml LV EF (4C MOD) 64 % LV Diastolic Volume (2C MOD) 120 ml LV EF (2C MOD) 65 % LV Diastolic Volume (BP MOD) 125 ml 46-106 LV Diastolic Volume Index (BP MOD) 69 ml/m2 29-61 LV Systolic Volume (BP MOD) 45 ml 14-42 LV Systolic Volume Index (BP MOD) 25 ml/m2 8-24 LV EF (BP MOD) 64 % 54-74 LV Diastolic Length (4C) 8.2 cm LV Systolic Length (4C) 7.0 cm LV Stroke Volume (4C MOD) 85 ml Atria Name Value Normal LA Dimensions LA Volume (4C A-L) 46 ml LA Volume (BP A-L) 48 ml RA Dimensions RA Systolic Major Luana Length (4C) 5.4 cm 2.2-2.8 RA Area (4C) 15.9 cm2 <=18.0 Report Signatures
--- NOTE | 2024-12-22 09:20 | PM.OBPNVD ---
OB - PN: Subj Subjective Date/time seen: 12/22/24 09:20 Interval history: Headache improved with Tylenol. She had CP yesterday upper. No CP this am. OB - PN: Obj Data Labs 12/21/24 10:40 12/21/24 10:40 Labs: Laboratory Results - last 24 hr 12/21/24 10:40 WBC 7.8 RBC 4.43 Hgb 10.5 L Hct 33.5 L MCV 75.6 L MCH 23.7 L MCHC 31.3 L RDW 17.9 H Plt Count 397 H D MPV 10.0 Immature Gran % (Auto) 0.4 Neut % (Auto) 68.2 Lymph % (Auto) 19.8 Jenkins % (Auto) 9.9 H Eos % (Auto) 1.4 Baso % (Auto) 0.3 Lymph # (Auto) 1.54 Jenkins # (Auto) 0.8 H Eos # (Auto) 0.1 Baso # (Auto) 0.0 Abs Immat Gran (auto) 0.03 Absolute Neuts (auto) 5.3 Absolute Nucleated RBC 0.000 Nucleated RBC % 0.0 Sodium 137 Potassium 3.7 Chloride 104 Carbon Dioxide 26 Anion Gap 7 BUN 7 Creatinine 0.61 L Estim Creat Clear Calc Not Reportable Estimated GFR > 60 Glucose 76 Uric Acid 4.2 Calcium 8.4 Total Bilirubin 0.9 AST 23 ALT 21 Alkaline Phosphatase 176 H Total Protein 7.9 Albumin 3.6 OB - PN A/P Assessment and Plan (1) hypertension: Code(s): O16.5 - Unspecified maternal hypertension, complicating the puerperium Status: Acute Assessment and Plan: Blood pressures labile and some severe range. Will adjust medication. Magnesium for 24 hours. EKG/echo rdered due to her complaints of chest pain. Time Spent With Patient Time: Total time spent is greater than 50% in coordination of care (as documented) at patient's floor/unit and/or counseling patient: Exam Const: General: no acute distress Eyes: General: appearance normal, both eyes and all related structures Resp: Effort & Inspection: normal respiratory effort Cardio: Rate: regular rate Rhythm: regular rhythm
--- NOTE | 2024-12-22 09:45 | PC.NURSE ---
Dr Hobbs was at the unit and was informed about patients EKG being normal
[2024-12-22] MEDS: IBUPROFEN 600 MG TABLET PO (12:19)
[2024-12-22] MEDS: CAFFEINE 200 MG TABLET PO (12:23)
--- NOTE | 2024-12-22 12:29 | PC.NURSE ---
1211- Called Dr. Hobbs to report vital signs and pt states she is having a headache. MD aware of elevated BP. Orders received.
--- NOTE | 2024-12-22 13:22 | PC.NURSE ---
1310- Called Dr. Hobbs to report vital signs. aware of severe range blood pressures. Orders received.
--- NOTE | 2024-12-22 16:17 | PC.NURSE ---
Dr. Hobbs informed BP back kup to 170/100 and repeat 6 mins later was 167/96. Pt's headache has resolved. in room sleeping on mom's chest. Order received for another dose of Procardia 30 XL.
--- NOTE | 2024-12-22 19:49 | PC.NURSE ---
Addendum entered by Analilia Shearer RN 12/23/24 03:40: Dr. Ramirez updated on pt status. 400mg labetalol due, BP currently 129/89. RN to hold labetalol, will reassess in 1 hour. Pt also wanting information on possible discharge. Pt is recommended to stay until morning for bp monitoring and Dr. Hobbs will come in the morning to see her. Pt verbalized understanding. Original Note: Dr. Ramirez updated on pt status. 400mg labetalol due, BP currently 129/89. RN to hold labetalol, will reassess in 1 hour. Pt also wanting information on possible discharge. Pt is recommended to stay until morning for bp monitoring and Dr. Hobbs will come in the morning to see her.
--- NOTE | 2024-12-22 20:47 | PC.NURSE ---
Pt in shower. Will check BP when she is out
[2024-12-23] VITALS (13 sets, daily range): BP systolic 93–126; BP diastolic 64–82; PULSE 77–96; RESP 14–17; TEMP 36.8–37.2
[2024-12-23] MEDS: IBUPROFEN 600 MG TABLET PO (00:27)
--- NOTE | 2024-12-23 03:37 | PC.NURSE ---
Pt resting comfortably in bed. Pt reported BROCK improved completely with ibuprofen. BP WNL. No complaints at this time.
--- NOTE | 2025-01-08 11:41 | PM.OBDSVD ---
DS: Admitting Diagnosis Discharge Date 12/23/24 Admitting Diagnosis hypertension DS: Discharge Diagnosis Discharge Diagnosis (1) hypertension: Code(s): O16.5 - Unspecified maternal hypertension, complicating the puerperium Status: Acute OB - DS: Summary Hospital Course Hospital Course: She was admitted for hypertension management . She received Magnesium IV for 24 hours. Blood pressures did decrease from severe range. She did have an ECHO, no concerning findings. Blood pressures did improve on antihypertensive medication which she was discharged to home on. OB Procedures : None OB Procedures Intrapartum: Other (None) OB Procedures: : Other (Magnesium) Peripartum Data complications: other (hypertension) Status at Discharge Functional status at discharge: independent ambulation Time Spent with Patient Time attestation: Total time spent providing and/or coordinating discharge services: Exam Const: General: cooperative Orientation/consciousness: oriented to person, oriented to place and oriented to time Eyes: General: appearance normal, both eyes and all related structures Resp: Effort & Inspection: normal respiratory effort GI: Inspection: normal to inspection Neuro: General: oriented to person, oriented to place and oriented to time Extrem: General: normal to inspection and no calf tenderness Psych: Appearance: grossly normal Discharge Plan Discharge Attending physician on discharge: Efrem Hobbs Consulting providers: Aníbal Hough Discharging Clinician: Efrem Hobbs Anticipated Discharge Date/Time: 12/23/24 11:10 Patient Disposition: Home Activity: pelvic rest Diet: regular Patient Language: Vietnamese Stand Alone Forms: General Discharge Information Follow-up/Referrals: Efrem Hobbs MD [Physician, DATAPOWER CONSULTANT] - Call for Appointment Referral Note: Follow up next week Discharge Medications: New nifedipine [Procardia XL] 30 mg Tablet Extended Release 24hr 30 mg PO QAM Qty: 30 0RF Continued ferrous sulfate 325 mg (65 mg iron) tablet 325 mg PO DAILY Qty: 30 0RF ibuprofen 600 mg tablet 600 mg PO Q6H PRN (Reason: cramps) Qty: 30 0RF Discontinued pantoprazole 20 mg tablet,delayed release (DR/EC) 20 mg PO QAM Qty: 30 1RF amoxicillin-pot clavulanate 875-125 mg tablet 1 tablet PO BID 7 Days Qty: 14 0RF Date of admission: 12/22/24 13:20 Primary Care Provider: Itzel Santana Admitting Provider: Efrem Hobbs Attending physician on admission: Efrem Hobbs Condition: Stable
== END 2024-12-23 11:38 | disposition home or self-care (01) | DRG 561 ==
LOC: ANHOBOP 11:13 → ANHOBPP 11:13
PROVIDERS: Admitting Provider Obstetrics & Gynecology; PCP Nurse Practitioner Family; Visit Provider Obstetrics & Gynecology
DX: O14.05 Mild to moderate pre-eclampsia, complicating the puerperium (principal)
CPT/HCPCS: 36415; 80053; 84550; 85025; 93005; 93306; 96365; 96366; 96367; 96375; A9270; G0378; G0379; J1200; J2765; J3475; J7120